=== PATIENT | female | born 1940 | race Caucasian/White ===

== ENCOUNTER 2024-04-06 15:12 | Outpatient (CLI) | payer BC, SELFPAY | END 2024-04-06 15:13 | disposition home or self-care (01) | PROVIDERS: Visit Provider Family Medicine | DX: E55.9 Vitamin D deficiency, unspecified (principal); I10 Essential (primary) hypertension; E78.5 Hyperlipidemia, unspecified; E11.8 Type 2 diabetes mellitus with unspecified complications; Z11.59 Encounter for screening for other viral diseases | CPT/HCPCS: 80053; 82043; 82306; 82570; 86803 ==

== ENCOUNTER 2024-05-07 12:37 | Outpatient (CLI) | payer MEDICARE, SELFPAY | END 2024-05-07 12:38 | disposition home or self-care (01) | PROVIDERS: PCP Family Medicine; Visit Provider Surgery | DX: I83.819 Varicose veins of unspecified lower extremity with pain (principal); I87.2 Venous insufficiency (chronic) (peripheral) | CPT/HCPCS: 93970 ==

== ENCOUNTER 2024-07-08 05:33 | Inpatient (IN) | payer MEDICARE, SELFPAY ==
[2024-07-08] VITALS (7 sets, daily range): BP systolic 119–182; BP diastolic 55–75; PULSE 62–70; RESP 16–18; TEMP 36.6; O2SAT 93–96; BMI 31.5; BMI 32.6
--- NOTE | 2024-07-08 05:57 | CRLHL7_ITS ---
For Patients: As a result of the Cures Act, medical imaging exams and procedure reports are released immediately into your electronic medical record. You may view this report before your referring provider. If you have questions, please contact your health care provider. Indication: Indication:injury, cellulitis Technique: Right foot 4th digit 3 views. Comparison: None. Findings/Impression: No acute fracture or dislocation Mild generalized soft tissue swelling of the 4th distal phalanx. Scattered degenerative arthrosis of the interphalangeal joint. Dictated by Ewa Garcia MD @ 07/08/2024 6:44:16 AM (Electronically Signed)
--- NOTE | 2024-07-08 06:02 | ED_ITS ---
HPI - General Adult General Chief complaint: Lower Extremity Swelling Stated complaint: R foot sore Time Seen by Provider: 07/08/24 05:46 Source: patient and family Mode of arrival: ambulatory Limitations: no limitations History of Present Illness HPI narrative: 83-year-old female with a notable prior history of diabetes and prior foot infections presents to the emergency department for evaluation of redness and throbbing in the right foot. She had a pedicure 6 days ago and had bleeding at the time of the appointment. It sounds like the account technician applied powder solution to stop the bleeding. Bleeding in injury were to the 4th toe, sounds like the lateral nail fold per her description. For the last 2 days patient has noticed increased redness and swelling and now has tenderness and throbbing. Has not tried any medications to help with the pain. Prior history of a similar infection that required removal of the great toenail on the same foot per her description. She does have some mild memory impairment and is not able to recall lot of the details. The family says that she also had an infection in her finger several years ago that required surgical drainage. She tells me that it was a cyst but they are confident that it was a bone infection. She is not on insulin but does have diabetes. She was on her feet a lot the last couple of days making cookies. No fever. No systemic symptoms of infection. She reports that she did recently complete antibiotics for a bladder infection, unrelated. Denies any other symptoms of illness. No repeat of the bleeding, no drainage. Past medical history notable for type 2 diabetes, hypertension, hyperlipidemia. Reports that her only home medications are amlodipine, metformin, rosuvastatin. Nonsmoker. ROS is notable for the skin and foot symptoms as described above, otherwise denies times 12 systems. Related Data Home Medications ?Medication ?Instructions ?Recorded ?Confirmed ascorbic acid (vitamin C) 500 mg 500 mg PO QDAY 04/06/24 05/02/24 tablet calcium complex plus PO DAILY 04/06/24 05/02/24 cholecalciferol (vitamin D3) 25 25 mcg PO QDAY 04/06/24 05/02/24 mcg (1,000 unit) capsule docusate sodium 100 mg capsule 200 mg PO BID 04/06/24 05/02/24 (Dulcolax Stool Softener (docusate)) qunol turmeric 1,500 mg PO DAILY 04/06/24 05/02/24 Previous Rx's ?Medication ?Instructions ?Recorded amlodipine 2.5 mg tablet 2.5 mg PO QDAY #90 tabs 04/06/24 metformin 500 mg tablet 500 mg PO BID #180 tabs 04/06/24 rosuvastatin 5 mg tablet 5 mg PO QHS #90 tabs 04/06/24 Myrbetriq 50 mg tablet,extended 50 mg PO QDAY #90 tabs 04/16/24 release (mirabegron) Allergies Allergy/AdvReac Type Severity Reaction Status Date / Time codeine Allergy Verified 07/08/24 05:39 Sulfa (Sulfonamide AdvReac swelling Verified 07/08/24 05:39 Antibiotics) hydrocodone-acetaminophen Allergy Uncoded 05/02/24 09:06 levaquin Allergy myalgias Uncoded 05/02/24 09:06 Propoxyphene n-apap Allergy Nausea and Uncoded 05/02/24 09:06 vomiting dermabond prineo AdvReac rash Uncoded 05/02/24 09:06 invokana AdvReac hives and Uncoded 05/02/24 09:06 intense itching Levofloxacin hemihydrate AdvReac myalgias Uncoded 05/02/24 09:06 opioid analgesics AdvReac Uncoded 05/02/24 09:06 oxycodone-acetaminophen AdvReac rash Uncoded 05/02/24 09:06 [facility] Medical History Psoriasis ?L40.9 - Psoriasis, unspecified (ICD-10) Spondylosis ?M47.9 - Spondylosis, unspecified (ICD-10) Labial cyst ?N90.7 - Vulvar cyst (ICD-10) Dense breasts ?R92.30 - Dense breasts, unspecified (ICD-10) Diabetic eye exam ?Z01.00 - Encounter for examination of eyes and vision without abnormal findings (ICD-10) ?E11.9 - Type 2 diabetes mellitus without complications (ICD-10) Hx of echocardiogram ?Z92.89 - Personal history of other medical treatment (ICD-10) History of angina ?Z86.79 - Personal history of other diseases of the circulatory system (ICD- 10) Hx of small bowel obstruction ?Z87.19 - Personal history of other diseases of the digestive system (ICD-10) Surgical History Status post right foot surgery ?Z98.890 - Other specified postprocedural states (ICD-10) History of arthroplasty of right knee ?Z96.651 - Presence of right artificial knee joint (ICD-10) H/O oophorectomy History of carpal tunnel surgery ?Z98.890 - Other specified postprocedural states (ICD-10) H/O vaginal surgery ?Z98.890 - Other specified postprocedural states (ICD-10) H/O discectomy ?Z98.890 - Other specified postprocedural states (ICD-10) H/O total hip arthroplasty ?Z96.649 - Presence of unspecified artificial hip joint (ICD-10) Hx of cataract surgery ?Z98.49 - Cataract extraction status, unspecified eye (ICD-10) History of cholecystectomy ?Z90.49 - Acquired absence of other specified parts of digestive tract (ICD- 10) History of colon surgery ?Z98.890 - Other specified postprocedural states (ICD-10) H/O cardiac catheterization ?Z98.890 - Other specified postprocedural states (ICD-10) History of hysterectomy ?Z90.710 - Acquired absence of both cervix and uterus (ICD-10) Hx of shoulder surgery ?Z98.890 - Other specified postprocedural states (ICD-10) Family History Father Coronary artery disease CHF (congestive heart failure) Diabetes High blood pressure Mother High blood pressure High cholesterol Vulvar cancer Thyroid cancer Maternal Grandfather Colon cancer Brother Sleep apnea Uncle Stomach cancer Social History Narrative: non-smoker, no alcohol use, lives with . 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 What is your current living situation?: I presently have a place to live Problems where you live: no known problems In the past 12 months, utilities in danger of being shut off: no In the past 12 mos, have been you worried that your food would run out before you had money to buy more?: never true In the past 12 mos, the food you bought just didn't last and you didn't have money to buy more?: never true How often does anyone, including family, friends and others, physically hurt you : never How often does anyone, including family, friends and others, insult or talk down to you: never How often does anyone, including family, friends and others, threaten you with harm: never How often does anyone, including family, friends and others, scream or curse at you: never Exam Const: Vital Signs, click to edit/add: Vital Signs - 24 hr 07/08/24 05:35 Temperature 97.8 F Pulse Rate [Right Pulse Oximeter] 70 Respiratory Rate 16 Blood Pressure [Ri ght Upper Arm] 182/75 H Pulse Oximetry 95 Oxygen Delivery Me thod Room Air Documenting provider has reviewed patient's vital signs: yes Common normals: no apparent distress and alert General appearance: cooperative and well kempt HENMT: Common normals: normocephalic Head and scalp: normocephalic Face and sinus: normal facial exam Mouth: oral and palatal mucosa normal Throat: posterior oropharynx normal Eye: Common normals: conjunctivae normal General eye: normal appearance of both eyes Conjunctiva: conjunctiva(e) normal Neck & C-Spine: General: normal visual inspection Resp: Common normals: normal respiratory effort, no use of accessory muscles and clear to auscultation bilaterally Effort & inspection: able to speak in complete sentences Auscultation: clear to auscultation bilaterally Cardio: Common normals: regular rate, regular rhythm, S1 normal heart sound, S2 normal heart sound and no murmurs Rate: regular rate Rhythm: regular rhythm Heart sounds: S1 normal and S2 normal GI: Common normals: Normal to inspection, nondistended, normoactive bowel sounds present, soft to palpation, non-tender, no hepatosplenomegaly and no masses Palpation: soft and no hepatosplenomegaly Back & Pelvis: Common normals: thoracic and lumbar spine normal to inspection Extremity: Common normals: normal capillary refill Other: 2+ dorsalis pedis pulses bilaterally. A ll the toes have normal capillary refill. The left foot and toes appear grossly normal. Slight bunion deformity to the 1st digit but otherwise no abnormalities. The right foot however has significant swelling and redness that centers around the 4th toe. No visible laceration is present. There is no purulent drainage. Point of maximum tenderness is the lateral nail fold of the 4th toe. The redness does extend onto the 5th and 3rd toes and somewhat down the distal forefoot. Area will be marked by the nurse. Neuro: Sensorium/orientation: alert Motor exam: no movement abnormalities noted Psych: Appearance: well kempt Attitude: engaged Activity/motor behavior: appropriate eye contact Thought content: normal thought content Insight: insight good Judgement: judgment good Skin: Narrative: Other than the redness of the distal foot, no other abnormalities appreciated. No other open sores. Course Course ED Course: 83-year-old female with cellulitis of the 4th toe of the right foot with prior history of what sounds like osteomyelitis in the hand but also significant infection of the foot in the past. She is high risk for osteomyelitis or worsening cellulitis. High-risk for outpatient failure as well. Will obtain basic typical labs. I fear that she may need inpatient hospitalization for this cellulitis and IV antibiotics. Will await lab findings to tell for sure. Reevaluation(s) Time of Reevaluation #1: 07:07 Reevaluation #1: Counseled patient on lab and x-ray findings. No obvious osteomyelitis on x-ray but still significant concern for high risk infection. Age, diabetes, vascular status and prior osteomyelitis of the hand. Recommend IV antibiotics and hospitalization. She is hesitant but her family is understanding of my rationale and ultimately, she accepts as well. Will start vancomycin and Zosyn here in the ED and hospitalist team has accepted the patient for admission and care of cellulitis. Vital Signs Vital signs: Initial Vital Signs Temperature 97.8 F 07/08/24 05:35 Temperature Source Temporal Artery Scan 07/08/24 05:35 Pulse Rate 70 07/08/24 05:35 Pulse Rhythm Regular 07/08/24 05:35 Pulse Strength 3+ Normal 07/08/24 05:35 Respiratory Rate 16 07/08/24 05:35 Blood Pressure 182/75 H 07/08/24 05:35 Blood Pressure Mean 110 H 07/08/24 05:35 Blood Pressure Position Sitting 07/08/24 05:35 Pulse Oximetry 95 07/08/24 05:35 Oxygen Delivery Method Room Air 07/08/24 05:35 Vital Signs Temperature 97.8 F 07/08/24 05:35 Pulse Rate 70 07/08/24 05:35 Respiratory Rate 16 07/08/24 05:35 Blood Pressure 182/75 H 07/08/24 05:35 Pulse Oximetry 95 07/08/24 05:35 Oxygen Delivery Method Room Air 07/08/24 05:35 Temperature 97.8 F 07/08/24 05:35 Pulse Rate 70 07/08/24 05:35 Respiratory Rate 16 07/08/24 05:35 Blood Pressure 182/75 H 07/08/24 05:35 Pulse Oximetry 95 07/08/24 05:35 Oxygen Delivery Method Room Air 07/08/24 05:35 Medications Administered Medications: Discontinued Medications Generic Name Dose Route Start Last Admin Trade Name Bry PRN Reason Stop Dose Admin Acetaminophen 1,000 mg 07/08/24 05:57 07/08/24 06:27 Acetaminophen 500 Mg Tablet PO 07/08/24 05:58 1,000 mg ONCE ONE Administration Medical Decision Making Lab Data Lab results reviewed: Yes I reviewed the patient's lab results Lab results narrative: Labs are pretty reassuring. There is a mild leukocytosis. Creatinine looks stable for patient, electrolytes are normal. C reactive protein reassuring. Labs: Lab Results 07/08/24 Range/Units 06:21 WBC 12.92 H (4.50-11.00) K/uL RBC 4.19 (4.00-5.20) m/uL Hgb 12.8 (12.0-16.0) gm/dL Hct 39.9 (33.0-51.0) % MCV 95 (80-100) fL MCH 31 (26-34) pg MCHC 32 (32-36) gm/dL RDW Coeff of Calli 13.0 (11.5-15.5) % Plt Count 257 (140-440) K/uL Neut % (Auto) 68.5 (42.0-72.0) % Lymph % (Auto) 16.3 L (20-44) % Lagrange % (Auto) 8.9 (0.0-11.0) % Eos % (Auto) 5.6 (0.0-7.0) % Baso % (Auto) 0.5 (0.0-3.0) % Neut # (Auto) 8.90 H (1.7-7.0) K/uL Lymph # (Auto) 2.10 (0.90-2.90) K/uL [place] # (Auto) 1.10 H (0.00-0.90) K/UL Eos # (Auto) 0.70 H (0.00-0.50) K/uL Baso # (Auto) 0.10 (0.00-0.30) K/uL Abs Immat Gran (auto) 0.00 (0.00-0.30) K/uL Imm/Tot Granulo (auto) 0.2 % Sodium 141 (135-149) mmol/L Potassium 4.8 (3.6-5.1) mmol/L Chloride 107 (96-114) mmol/L Carbon Dioxide 26 (20-32) mmol/L Anion Gap 8 (7-15) mEq/L BUN 20 (7-30) mg/dL Creatinine 0.7 (0.5-1.5) mg/dL Estimated Creat Clear 34.30 Estimated GFR 86 ml/min Glucose 191 H (60-115) mg/dL Calcium 9.6 (8.4-10.6) mg/dL C-Reactive Protein < 0.5 L (0.5-1.0) mg/dL Imaging Data Right 4th toe x-ray: Attestation: I have reviewed the pertinent imaging results. My impression: No obvious fracture, bone erosion. There are some osteoarthritic changes but no obvious suspicion for osteomyelitis Radiologist's impression: Findings/Impression: No acute fracture or dislocation Mild generalized soft tissue swelling of the 4th distal phalanx. Scattered degenerative arthrosis of the interphalangeal joint. Dictated by Ewa Garcia MD @ 07/08/2024 6:44:16 AM Discharge Plan Discharge Clinical Impression: Cellulitis of fourth toe of right foot Patient Disposition: Admitted As Observation
--- OUTSIDE RECORDS SUMMARY | 2024-07-08 06:05 | XMS_ITS | Encounter Summary ---
Author Organization [employer] [facility] Address [address] [place] [address], [address] [place] [address] Phone Care Team Providers Care Inspector Packer [employer] Name Role Phone Francisco Trevino Primary Care Provider [phone] Francisco Nava MD Primary Care Provider [phone] Encounter Details Date Type Department Care Team (Late st Contact Info) Description 12/10/2021 Orders Only [facility] [place] [address] [place] [address] Kelle Baltazar MA Unilateral primary osteoarthritis of right knee Social History Tobacco Use Types Packs/Day Years Used Date Smoking Tobacco: Former Smokeless Tobacco: Never Comments Unknown Sex and Gender Information Value Date Recorded Sex Assigned at Female 08/14/2021 10:34 PM 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 [place] [address] PCP - General Reception Interviewer 05/20/22 documented as of this encounter
--- OUTSIDE RECORDS SUMMARY | 2024-07-08 06:05 | XMS_ITS | Clinical Summary ---
Author Organization [facility] Address [address] [place] [address], [address] [place] [id number] Phone Care Team Providers Care Seafood Packer Name Role Phone Francisco Nava MD Primary Care Provider [phone] Allergies Active Allergy Reactions Criticality Noted Date Comments Codeine Nausea And Vomiting Low 03/01/2014 Hydrocodone-Acetaminoph en Nausea And Vomiting 01/07/2010 Plain Tylenol ok to take without problem Levofloxacin Other High 12/17/2010 Other reaction(s): Myalgias Myalgias Morphine And Codeine 10/21/2004 Other reaction(s): Other dry heeves and vomiting Other Rash Low 06/30/2022 Dermabond (Prineo), tegaderm Oxycodone Rash Low 06/30/2022 Sulfa Antibiotics Swelling 10/21/2004 Medications amLODIPine (Norvasc) 2.5 MG tablet Take 2.5 mg by mouth in the morning. 05/12/2021 Active ascorbic acid (Vitamin C) 500 MG tablet Take 500 mg by mouth. Active aspirin 81 MG EC tablet Take 81 mg by mouth in the morning. Active metFORMIN XR (Glucophage-XR) 500 MG 24 hr tablet Take 500 mg by mouth twice a day. 05/02/2021 Active rosuvastatin (Crestor) 5 MG tablet Take 5 mg by mouth. 04/26/2013 Active Invokana 100 MG Take 100 mg by mouth in the morning. 05/27/2022 Active canagliflozin (Invokana) 100 MG Take 100 mg by mouth in the morning. 05/26/2022 Active Myrbetriq 50 MG tablet sustained-releas e 24 hour Take 1 tablet by mouth in the morning. 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 03/05/2020 Type 2 diabetes mellitus 07/04/2017 Resolved Problems Problem Noted Date Diagnosed Date Resolved Date Hypertensive disorder 05/26/20212022 Rotator cuff arthropathy of left shoulder 05/26/2021 08/27/2022 Osteoarthritis 02/19/2020 08/27/2022 Shoulder pain 05/14/2019 08/27/2022 Inflammation of rotator cuff tendon 06/26/2013 08/27/2022 Immunizations Immunization Administration Dates Next Due Influenza, High Dose Seasona l, Preservative Free 04/19/2022,04/17/2021,04/03/2020,05/15,04/18/2018,04/30/2017,04/21/2016 Influenza, High-dose Seasona l, Quadrivalent, Preservative Free 05/04/2023,04/19/2022,04/17/2021,04/03 Influenza, seasonal, injectable 05/30/20 13,05/04/2012,04/22/2010,05/02,05/21/2008,06/06/2007,05/24/2006 ,07/15/2000 Pfizer SARS-CoV-2 Vaccination 04/19/2022, 022 Pneumococcal Conjugate PCV 13 05/13/2015 Pneumococcal Polysaccharide PPV23 05/13/2016 Pneumococcal, Unspecified 12/06/2022(Def erred: Patient decision),05/21/2008 RSV IGIV 05/10/2023,05/10/2023 Tdap 05/08/2018,05/21/2008 Zoster, Recombinant 02/01/2020,07/23/2019 Zoster, live 05/14/2009 Social History Tobacco Use Types Packs/Day Years Used Date Smoking Tobacco: Former Passive Smoke Exposure: Never Smokeless Tobacco: Never Tobacco Cessation:Counseling Given: No Alcohol Use Standard Drinks/Week Comments Never 0 (1 standard drink = 0.6 oz pur e alcohol) Comments Unknown Sex and Gender Information Value Date Recorded Sex Assigned at Female 08/14/2021 10:34 PM LOCOMOTIVE CRANE 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 Legal Sex Female 10:51 PM CDT Gender Identity Female 08/14/2021 10:34 PM LOCOMOTIVE CRANE OPERATOR Sexual Orientation Not on file Last Filed Vital Signs Vital Sign Reading Time Taken Comments Blood Pressure - - Pulse - - Temperature - - Respiratory Rate - - Oxygen Saturation - - Inhaled Oxygen Concentration - - Weight 78.5 kg (173 lb) 09/05/2023 4:10 PM LOCOMOTIVE CRANE OPERATOR Height 157.5 cm (5' 2) 09/05/2023 4:10 PM LOCOMOTIVE CRANE OPERATOR Body Mass Index 31.64 09/05/2023 4:10 PM LOCOMOTIVE CRANE OPERATOR Plan of Treatment Health Maintenance Due Date Last Done Comments Bone Density Scan 1941 Influenza Vaccine (#1) 2024 , 04/17/2021, 04/03/2020, Additional history exists Annual Imaging after Total K nee Replacement 01/31/2025 02/01/2024, 12/06/2022, 07/23/2022, Additional history exists Pneumococcal Vaccine: 65+ Years Completed 05/13/2016, 05/13/2015, 05/21/2008 Procedures Procedure Name Priority Date/Time Associated Diagnosis Comments XR HIP 2 OR 3 VW RIGHT Routine 02/01/2024 6:42 PM CDT Fall <Initial> from Last 3 Months or Most Recently Relevant to Health Maintenance Results * XR hip right 2 or 3 views (02/01/2024 6:42 PM CDT) Anatomical Region Laterality Modality Lower Extremities, Hip Right Digital R adiography Narrative 02/02/2024 11:02 AM CDT AP, lateral views of the R hip demonstrate well aligned total hip arthroplasty without appreciated signs of infection, loosening, periprosthetic fracture, or signs of hardware complication. Maintenance of concentric reduction. Norma GARDNER IMG XR PROCEDURES Final Result from Last 3 Months or Most Recently Relevant to Health Maintenance Insurance [employer] [place] [id number] Care Teams Seafood Packer Relationship Specialty Start Date End Date Francisco Nava MD [address] [facility] [address] [place] [address] PCP - General Cardroom Attendant 05/20/22
--- OUTSIDE RECORDS SUMMARY | 2024-07-08 06:05 | XMS_ITS | Clinical Summary ---
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 Role Phone Shahzad Temple Primary Care Provider Allergies Active Allergy Reactions Criticality Noted Date Comments Codeine 12/07/2010 Hydrocodone-Acetaminoph en Nausea And Vomiting 01/07/2010 vicodin Plain Tylenol ok to take without problem Levofloxacin Myalgia,Nausea And Vomiting,*Unknown,Ot her - Describe In Comment Field High 12/17/2010 Other reaction(s): Myalgias Myalgias Myalgias Propoxyphene-Acetaminop hen Nausea And Vomiting 11/10/2005 Sulfa (Sulfonamide Antibiotics) 12/07/2010 Medications Medication Sig Dispensed Refills Start Date End Date Status simvastatin (ZOCOR) 10 mg tablet Take 1 tablet by mouth at bedtime. 0 12/07/2010 Active amLODIPine (NORVASC) 2.5 mg tablet Take 1 Tablet by mouth once daily. 01/03/2024 Active metFORMIN (GLUCOPHAGE) 500 mg tablet Take 1 Tablet by mouth two times daily. Active rosuvastatin (CRESTOR) 5 mg tablet Take 1 Tablet by mouth at bedtime. 06/07/2023 Active pseudoephedrine (SUDAFED 12 HOUR) 120 mg TbER Take 1 tablet by mouth every 12 hours if needed for Nasal Congestion. 0 12/07/2010 06/18/2024 Discontinued( *Patient states no longer taking) dextromethorphan polistirex 30 mg in 5 ml (DELSYM) 30 mg/5 mL liquid Take 5 mL by mouth every 12 hours if needed for Cough. 0 12/07/2010 06/18/2024 Discontinued( *Patient states no longer taking) predniSONE (DELTASONE) 20 mg tablet Take by mouth once daily with a meal. Take 3 daily x 3 days; then 2 daily x 3 days; then 1 daily x 3 days. 18 tablet 0 12/07/2010 06/18/2024 Discontinued( *Patient states no longer taking) cephalexin 500 mg capsuleIndicatio ns:Acute UTI Take 1 Capsule (500 mg) by mouth three times daily for 10 days. 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 30 Capsule 06/20/2024 06/30/2024 fluconazole (Diflucan) 150 mg tabletIndication s:Vaginal irritation Take 1 Tablet (150 mg) by mouth one time for 1 dose. Can repeat the dose in 72 hours if still with symptoms 2 Tablet 06/21/2024 06/21/2024 Active Problems Problem Noted Date Diagnosed Date Hyperlipidemia 12/07/2010 Encounters Date Type Department Care Team Description 06/28/2024 10:00 AM [employer] Nurse/Clinic Staff Only [facility] [place] [address] [place] [address] Removal (TOV ) 06/28/2024 Travel 06/21/2024 8:40 AM [employer] Office Visit [facility] [place] [address] [place] [address] Purnima Davis PA Follow Up (Discuss catheter) 06/21/2024 Travel 06/18/2024 1:20 PM [employer] Office Visit [facility] [place] [address] [place] [address] Purnima Davis PA Follow Up (IC issues) 06/18/2024 Travel 06/18/2024 Telephone [facility] [place] [address] [place] [address] Purnima Davis PA 06/15/2024 Telephone [facility] [place] [address] [place] [address] [address] Vinicio Monge MD Questions (Catheter questions and Concerns) 06/15/2024 Nurse Triage [facility] [email or web address] [id number] [place] [address] Shahzad Temple PA Error-please disregard (A user error has taken place: encounter opened in error, closed for administrative reasons./) 06/14/2024 11:00 AM [employer] Nurse/Clinic Staff Only [facility] [place] [address] [place] [address] [address] Nurse/Clinic Staff Only (UA/UC and PVR) 06/14/2024 Travel 06/14/2024 Telephone [facility] [place] [address] [address] Vinicio Monge MD Questions 06/05/2024 Telephone [place] [address] [place] [address] Vinicio Monge MD Appointment (Request) 05/31/2024 Orders Only [address] [address] Vinicio Monge MD <No scans attached> 05/21/2024 Telephone [facility] [place] [address] [address] Vinicio Monge MD Medication List Update 05/14/2024 Telephone [facility] [[email or web address] [id number] [place] [address] Vinicio Monge MD BOTOX 05/11/2024 12:45 PM CDT Office Visit [facility] [place] [address] [place] [address] [address] Vinicio Monge MD Consult (Incontinence) 05/11/2024 Travel 05/07/2024 1:00 PM CDT Orders Only [facility] [address] [place] [address] 2 scans: (2-Ord) US VENOUS INSUFFICIENCY LOWER EXTREMITY BILATERAL ([id number]) from Last 3 Months Social History Tobacco Use Types Packs/Day Years Used Date Smoking Tobacco: Never Smokeless Tobacco: Never Alcohol Use Standard Drinks/Week Comments Not Asked 0 (1 standard drink = 0.6 oz pur e alcohol) Sex and Gender Information Value Date Recorded Sex Assigned at Not on file Gender Identity Not on file Sexual Orientation Not on file Obstetrics History Last Filed Vital Signs Vital Sign Reading Time Taken Comments Blood Pressure 137/72 06/18/2024 2:01 PM [employer] Pulse 69 06/21/2024 8:57 AM [employer] Temperature 37.3 C (99.1 F) 12/07/2010 12:01 PM CDT Respiratory Rate 16 06/18/2024 2:01 PM [employer] Oxygen Saturation 97% 06/21/2024 8:57 AM [employer] Inhaled Oxygen Concentration - - Weight 80.8 kg (178 lb 1.6 oz) 05/11/2024 1:28 P M CDT Height - - Body Mass Index - - Plan of Treatment Upcoming Encounters Date Type Department Care Team (Late st Contact Info) Description 07/10/2024 11:00 AM [employer] Nurse/Clinic Staff Only [address] [address] Health Maintenance Due Date Last Done Comments Tdap 1952 Depression screening for age 12+ 1953 BMI (ht and wt on same day) for age 18+ 11/08/1959 Tetanus booster 1961 Zoster (shingles) series for age 50+ (1 of 2) 11/08/1991 DEXA/DXA scan for age 65+ 2006 Medicare Wellness for age 65+ 2006 Pneumococcal series for age 65+ (1 of 1 - PCV) 2006 RSV vaccine for adults or (1 - 1-dose 75+ series) 2016 Influenza for age 65+ 04/08/2024 COVID-19 vaccine series Completed 05/01/20, 04/19/2022, 04/19/2022, Additional history exists Procedures Procedure Name Priority Date/Time Associated Diagnosis Comments URINE CULTURE Routine 06/18/2024 2:20 PM [employer] Urinary symptom or sign URINALYSIS MICROSCOPIC Routine 11:30 AM [employer] Urinary symptom or sign URINE CULTURE Routine 06/14/2024 11:30 AM [employer] Urinary symptom or sign UA W/ SEDIMENT EXAM REFLEXED PER CRITERIA Routine 06/14/2024 11:30 AM [employer] Urinary symptom or sign GA RAEGAN POST-VOIDING RESIDUAL URINE&/BLADDER CAP Routine 06/14/2024 12:00 AM [employer] Urinary symptom or sign US VENOUS INSUFFICIENCY LOWER EXTREMITY BILATERAL Routine 05/07/2024 3:59 PM CDT Venous insufficiency Varicose veins with pain Leg pain Bilateral leg pain from Last 3 Months Results * (ABNORMAL) URINE CULTURE (06/18/2024 2:20 PM [employer]) Only the most recent of2 resultswithin the time period is included. CULTURE RESULT(A) 06/20/2024 7:08 AM [employer] [facility] CULTURE >100,000 CFU/mL Escherichia coli 06/20/2024 7:08 AM [employer] [facility] Urine URINE SPECIMEN / Unknown Non-Blood / Unknown 06/18/2024 2:20 PM [employer] 06/18/2024 2:51 PM [employer] Narrative Organism Antibiotic Method Susceptibility Escherichia coli TRIMETHOPRIM/SULF <=1/19: S Escherichia coli AMPICILLIN <=2: S Escherichia coli CEFAZOLIN 2: S Escherichia coli CEFAZOLIN-UC 2: S Comment:Cefazolin-UC interpretations are for therapy of uncomplicated UTIs due to E.coli, K.pneumoniae, or P.mirablis. Cefazolin breakpoint is used as a surrogate to predict results for the oral agents - cefdinir, cefuroxime, and cephalexin, when used for therapy of uncomplicated UTIs due to E coli, K, pneumoniae, and P. mirabilis. The FDA recommends cefadroxil susceptibility can be deduced from cefazolin. Escherichia coli GENTAMICIN <=1: S Escherichia coli CEFTRIAXONE <=0.25: S Escherichia coli CEFTAZIDIME <=0.5: S Escherichia coli LEVOFLOXACIN <=0.12: S Escherichia coli CIPROFLOXACIN <=0.06: S Escherichia coli PIPERACILLIN/TAZO <=4: S Escherichia coli AMPICILLIN/SULBACTAM <=2: S Escherichia coli CEFEPIME <=0.12: S Escherichia coli MEROPENEM <=0.25: S Escherichia coli NITROFURANTOIN <=16: S Purnima GARDNER MICROBIOLOGY Performing Organization Address City/[facility]/ZIP Co de Phone Number [facility] [address] [place] [address], [place] * (ABNORMAL) URINALYSIS MICROSCOPIC (06/14/2024 11:30 AM [employer]) RBC 3-5(A) 0-2, None Seen /HPF 06/14/2024 12:24 PM [employer] [facility] WBC None Seen 0-2, 3-5, None Seen /HPF 06/14/2024 12:24 PM [employer] [facility] BACTERIA Rare None Seen, Rare, Few Bacteria/H PF 06/14/2024 12:24 PM [employer] [facility] EPITHELIAL CELLS Few None Seen, Few Epi/HPF 06/14/2024 12:24 PM [employer] [facility] Urine URINE SPECIMEN / Unknown Non-Blood / Unknown 06/14/2024 11:30 AM [employer] 06/14/2024 12:09 PM [employer] Purnima GARDNER URINE Performing Organization Address City/[facility]/ZIP Co de Phone Number [facility] [address] [place] [address], [place] [phone] * (ABNORMAL) UA W/ SEDIMENT EXAM REFLEXED PER CRITERIA (06/14/2024 11:30 AM [employer]) COLOR Yellow Yellow Color 06/14/2024 12:24 PM [employer] [facility] CLARITY Clear Clear Clarity 06/14/2024 12:24 PM [employer] [facility] SPECIFIC GRAVITY,URINE 1.010 1.010, 1.015, 1.020, 1.025 06/14/2024 12:24 PM [employer] [facility] PH,URINE 6.0 6.0, 7.0, 8.0, 5.5, 6.5, 7.5, 8.5 06/14/2024 12:24 PM [employer] [facility] UROBILINOGEN,Q UALITATIVE Normal Normal EU/dl 06/14/2024 12:24 PM [employer] [facility] PROTEIN, URINE Negative Negative mg/dL 06/14/2024 12:24 PM [employer] [facility] GLUCOSE, URINE Negative Negative mg/dL 06/14/2024 12:24 PM [employer] [facility] KETONES,URINE Negative Negative mg/dL 06/14/2024 12:24 PM [employer] [facility] BILIRUBIN,URIN E Negative Negative 06/14/2024 12:24 PM [employer] [facility] OCCULT BLOOD,URINE Small(A) Negative 06/14/2024 12:24 PM [employer] [facility] NITRITE Negative Negative 06/14/2024 12:24 PM [employer] [facility] LEUKOCYTE ESTERASE Negative Negative 06/14/2024 12:24 PM [employer] [facility] Urine URINE SPECIMEN / Unknown Non-Blood / Unknown 06/14/2024 11:30 AM [employer] 06/14/2024 12:09 PM [employer] Purnima GARDNER URINE [facility] [place] [address], * GA RAEGAN POST-VOIDING RESIDUAL URINE&/BLADDER CAP (06/14/2024 12:00 AM [employer]) Purnima GARDNER PB - URINARY SYSTEM SERVICES * US VENOUS INSUFFICIENCY LOWER EXTREMITY BILATERAL (05/07/2024 3:59 PM CDT) Anatomical Region Laterality Modality LEGS Ultrasound 05/07/2024 1:00 PM CDT Narrative 05/07/2024 4:57 PM CDT VASCULAR ULTRASOUND REPORT JOSE LEBLANC : 1940 Study Date: 05/07/2024 1:00:26 PM Age: 83 years Tech: PMK Gender: F Referring MD: NAHOMY EDEN Site: [facility] Study performed: Duplex US venous insufficiency, (bilateral). Indication for study: varicose veins Study Quality: Good TECHNIQUE: Lower/upper extremity veins were examined with duplex ultrasound, color-flow and spectral Doppler per exam protocol. Vein compressibility by transducer pressure was used to evaluate presence/absence of DVT/SVT. Venous flow and competence was evaluated by flow augmentation maneuvers per exam protocol. Insufficiency studies were performed with the patient in upright position, with vein diameters measured in mm, and reflux. IMPRESSION: 1. No evidence of deep vein thrombosis in the right and left lower extremity. 2. No evidence of deep venous insufficiency in the right and left lower extremity. 3. Superficial venous insufficiency was noted in the right sapheno-femoral junction and greater saphenous vein at proximal thigh and mid thigh. 4. The right greater saphenous vein and small saphenous vein are patent and compressible. 5. Incompetent varicose and/or radiation control health physicist veins as listed below. 6. The left greater saphenous vein and small saphenous are patent and compressible with no evidence for significant venous insufficiency. COMPARISON: No prior study available for comparison. FINDINGS: Left popliteal cyst 3.4x1.2x1.8cm. Right Lower Extremity: No deep venous insufficiency. No evidence of DVT. Varicose vein at knee, 2.9 mm diameter, 1.5 sec reflux. Varicose vein at prox calf, 2.6 mm diameter, 4.1 sec reflux. Left Lower Extremity: No deep venous insufficiency. No evidence of DVT. MEASUREMENTS: + +--------+----+--------+------+ RIGHT Compress SVT Diameter Reflux (mm) (secs) + +--------+----+--------+------+ SFJ yes None 7.1 1.5 + +--------+----+--------+------+ GSV THIGH PRX yes None 4.6 2.5 + +--------+----+--------+------+ GSV THIGH MID yes None 2.2 0.6 + +--------+----+--------+------+ GSV THIGH DST yes None 2.1 0.0 + +--------+----+--------+------+ GSV KNEE yes None 2.9 0.0 + +--------+----+--------+------+ GSV CALF UPPER yes None 2.5 0.0 + +--------+----+--------+------+ GSV CALF MID yes None 1.0 0.0 + +--------+----+--------+------+ GSV CALF LOW yes None 2.2 0.0 + +--------+----+--------+------+ SSV KNEE/SPJ yes None 1.6 0.0 + +--------+----+--------+------+ SSV CALF PRX yes None 2.0 0.0 + +--------+----+--------+------+ SSV CALF MID yes None 1.1 0.0 + +--------+----+--------+------+ SSV CALF DST yes None 2.1 0.0 + +--------+----+--------+------+ + +--------+----+ +------+ LEFT Compress SVT Diameter (mm) Reflux (secs) + +--------+----+ +------+ SFJ yes None 5.9 0.0 + +--------+----+ +------+ GSV THIGH PRX yes None 2.9 0.0 + +--------+----+ +------+ GSV THIGH MID yes None 1.7 0.0 + +--------+----+ +------+ GSV THIGH DST yes None 2.1 0.0 + +--------+----+ +------+ GSV KNEE yes None 1.9 0.0 + +--------+----+ +------+ GSV CALF UPPER yes None 1.9 0.0 + +--------+----+ +------+ GSV CALF MID yes None 2.2 0.0 + +--------+----+ +------+ GSV CALF LOW yes None 2.5 0.0 + +--------+----+ +------+ SSV KNEE/SPJ yes None 2.4 0.0 + +--------+----+ +------+ SSV CALF PRX yes None 1.7 0.0 + +--------+----+ +------+ SSV CALF MID yes None 2.5 0.0 + +--------+----+ +------+ SSV CALF DST yes None 1.7 0.0 + +--------+----+ +------+ can't evaluate Varicose Veins + + + + RIGHT Location Diameter (mm) Reflux (secs) + + + + knee 2.9 1.5 + + + + prox calf 2.6 4.1 + + + + DEEP SYSTEM +----+--------+-----+--------+----+ RIGHT RIGHT LEFT LEFT Compress DVT Compress DVT +----+--------+-----+--------+----+ CFV yes None yes None +----+--------+-----+--------+----+ PFV yes None yes None +----+--------+-----+--------+----+ FV yes None yes None +----+--------+-----+--------+----+ POPV yes None yes None +----+--------+-----+--------+----+ can't evaluate Francisco Oliva MD. Electronically signed on 05/07/2024 4:57:05 PM This study was performed and interpreted by a service accredited by the Intersocietal Accreditation Commission (IAC/Vascular), [email or web address]/vascular Report generated by [employer]. Final Procedure Note Francisco Oliva MD - 05/07/2024 VASCULAR ULTRASOUND REPORT JOSE LEBLANC : 1940 Study Date: 05/07/2024 1:00:26 PM Age: 83 years Tech: PMK Gender: F Referring MD: NAHOMY EDEN Site: [facility] Study performed: Duplex US venous insufficiency, (bilateral). Indication for study: varicose veins Study Quality: Good TECHNIQUE: Lower/upper extremity veins were examined with duplex ultrasound,color-flow and spectral Doppler per exam protocol. Vein compressibility bytransducer pressure was used to evaluate presence/absence of DVT/SVT.Venous flow and competence was evaluated by flow augmentation maneuversper exam protocol. Insufficiency studies were performed with the patientin upright position, with vein diameters measured in mm, and reflux. IMPRESSION: 1. No evidence of deep vein thrombosis in the right and left lowerextremity. 2. No evidence of deep venous insufficiency in the right and left lowerextremity. 3. Superficial venous insufficiency was noted in the rightsapheno-femoral junction and greater saphenous vein at proximal thigh andmid thigh. 4. The right greater saphenous vein and small saphenous vein are patentand compressible. 5. Incompetent varicose and/or radiation control health physicist veins as listed below. 6. The left greater saphenous vein and small saphenous are patent andcompressible with no evidence for significant venous insufficiency. COMPARISON: No prior study available for comparison. FINDINGS: Left popliteal cyst 3.4x1.2x1.8cm. Right Lower Extremity: No deep venous insufficiency. No evidence of DVT. Varicose vein at knee,2.9 mm diameter, 1.5 sec reflux. Varicose vein at prox calf, 2.6 mmdiameter, 4.1 sec reflux. Left Lower Extremity: No deep venous insufficiency. No evidence of DVT. MEASUREMENTS: + +--------+----+--------+------+ RIGHT Compress SVT Diameter Reflux (mm) (secs) + +--------+----+--------+------+ SFJ yes None 7.1 1.5 + +--------+----+--------+------+ GSV THIGH PRX yes None 4.6 2.5 + +--------+----+--------+------+ GSV THIGH MID yes None 2.2 0.6 + +--------+----+--------+------+ GSV THIGH DST yes None 2.1 0.0 + +--------+----+--------+------+ GSV KNEE yes None 2.9 0.0 + +--------+----+--------+------+ GSV CALF UPPER yes None 2.5 0.0 + +--------+----+--------+------+ GSV CALF MID yes None 1.0 0.0 + +--------+----+--------+------+ GSV CALF LOW yes None 2.2 0.0 + +--------+----+--------+------+ SSV KNEE/SPJ yes None 1.6 0.0 + +--------+----+--------+------+ SSV CALF PRX yes None 2.0 0.0 + +--------+----+--------+------+ SSV CALF MID yes None 1.1 0.0 + +--------+----+--------+------+ SSV CALF DST yes None 2.1 0.0 + +--------+----+--------+------+ + +--------+----+ +------+ LEFT Compress SVT Diameter (mm) Reflux (secs) + +--------+----+ +------+ SFJ yes None 5.9 0.0 + +--------+----+ +------+ GSV THIGH PRX yes None 2.9 0.0 + +--------+----+ +------+ GSV THIGH MID yes None 1.7 0.0 + +--------+----+ +------+ GSV THIGH DST yes None 2.1 0.0 + +--------+----+ +------+ GSV KNEE yes None 1.9 0.0 + +--------+----+ +------+ GSV CALF UPPER yes None 1.9 0.0 + +--------+----+ +------+ GSV CALF MID yes None 2.2 0.0 + +--------+----+ +------+ GSV CALF LOW yes None 2.5 0.0 + +--------+----+ +------+ SSV KNEE/SPJ yes None 2.4 0.0 + +--------+----+ +------+ SSV CALF PRX yes None 1.7 0.0 + +--------+----+ +------+ SSV CALF MID yes None 2.5 0.0 + +--------+----+ +------+ SSV CALF DST yes None 1.7 0.0 + +--------+----+ +------+ can't evaluate Varicose Veins + + + + RIGHT Location Diameter (mm) Reflux (secs) + + + + knee 2.9 1.5 + + + + prox calf 2.6 4.1 + + + + DEEP SYSTEM +----+--------+-----+--------+----+ RIGHT RIGHT LEFT LEFT Compress DVT Compress DVT +----+--------+-----+--------+----+ CFV yes None yes None +----+--------+-----+--------+----+ PFV yes None yes None +----+--------+-----+--------+----+ FV yes None yes None +----+--------+-----+--------+----+ POPV yes None yes None +----+--------+-----+--------+----+ can't evaluate Francisco Oliva MD. Electronically signed on 05/07/2024 4:57:05 PM This study was performed and interpreted by a service accredited by theIntersocietal Accreditation Commission (IAC/Vascular),[email or web address]/vascular Report generated by [employer]. Final Nahomy Eden MD from Last 3 Months Care Teams Wood Carving Lathe Operator Relationship Specialty Start [place] [address] [place], [place] [id number] PCP - General Family Practice 12/07/10
--- OUTSIDE RECORDS SUMMARY | 2024-07-08 06:05 | XMS_ITS | Continuity of Care Document ---
Author Organization [facility] , [facility] Address [address] [facility] [address] [place] [address] Care Team Providers Care Industrial Controller Name Role Phone JOHN MATHUR Primary Care Provider Assessment Encounter Date Assessment Date Assessment LastModified by Organization Details LastModified Time 05/31/2024 05/31/2024 83-year-old female presents for bladder Botox [email or web address] Not available 05/31/2024 16:29:10 Plan of Treatment Reminders Order Date Submit Date Provider Last Modified By Organization Details Last Modified Time Details Appointments None recorded. Lab urinalysis, dipstick 2023 024 ALEJANDRO [facility], [address], [address], [place], [address], 10:37:40 urinalysis, microscopic [email or web address] [facility], [address], [address], [place], [address], 10:33:49 Referral None recorded. Procedures None recorded. Surgeries None recorded. Imaging None recorded. Medication Orders None recorded. Patient TargetsNo targets recorded. Patient Instructions Encounter Date Encounter Id Patient Instructions Last Modified By Organization Details Last Modified Time 05/31/2024 [id number] 83-year-old female presents for bladder Botox. Botox performed without complication. [email or web address] Not available 05/31/2024 16:29:28 Reason for Referral None Reported. Problems Name Problem SNOMED Code Status Onset Date Resolution Date Notes Provider Name and Address Organization Details Recorded Time Overactive urinary bladder 481908973 Active 024 NICOLAS RAMAN MD [address] [facility], [place], [address], [facility] 4 15:30:10 Recurrent urinary tract infection 826408284 Active 024 NICOLAS RAMAN MD [address] [facility],[address], [place], [address], [facility] 4 08:57:56 Urinary tract infectious disease 31602493 Active 024 NICOLAS RAMAN MD [address] [place] [address],[address], [place], [address], [facility] 4 08:58:03 Problem Notes None recorded. Procedures Surgical History Date Name Laterality Status Provider Name and Address Organization Details Recorded Time 4 Cystoscopy with Botox Injections completed NICOLAS RAMAN MD [address] [place] [address],[address], [place], [address], [facility] 05/31/2024 16:29:04 4 Urine Culture completed Marybeth Rodriguez [facility] 05/16/2024 17:20:25 Urinalysis completed Lilly Shah [facility] 05/17/2024 12:33:20 Imaging Results None recorded. Procedure Notes None recorded. Medical Equipment None Reported. Allergies Allergen ID Allergen Name Allergen Category Reaction Reaction Severity Criticality Documentation Date Start Date Code Code System Note Provider Name and Address Organization Details Recorded Time [id number] levofloxa aaron medicatio n Not available Not available Not available 05/31/2024 63421 RxNorm Iliana Nevills [facility] 4 10:21:17 345811 codeine medicatio n Not available Not available Not available 05/31/2024 2670 RxNorm Iliana Nevills [facility], [facility] 4 10:21:25 727935 acetamino phen / hydrocodo ne medicatio n Not available Not available Not available 05/31/2024 66285 2 RxNorm Iliana Nevills [facility], [facility] 4 10:21:49 857463 Levaquin medicatio n Not available Not available Not available 05/31/2024 31266 2 RxNorm Iliana Nath [facility] 4 10:22:28 423960 propoxyph clara medicatio n Not available Not available Not available 05/31/2024 8785 RxNorm Iliana Nath [facility] 10:23:03 124174 Substance with sulfonami de structure and antibacte rial mechanism of action (substanc e) medicatio n Not available Not available Not available 05/31/2024 38337 8003 SNOMED Iliana Pham [facility] 4 10:23:10 Medications Name Sig Start Date Stop Date Status Note LastModified by Organization Details LastModified Time metformin 500 mg tablet TAKE 1 TABLET BY MOUTH TWICE DAILY active Not Available Not Available No t Available fluconazole 150 mg tablet TAKE 1 TABLET BY MOUTH 1 TIME active Not Available Not Available No t Available amlodipine 2.5 mg tablet TAKE 1 TABLET BY MOUTH EVERY DAY active Not Available Not Available No t Available cephalexin 500 mg capsule TAKE 1 CAPSULE BY MOUTH EVERY 12 HOURS FOR 5 DAYS active Not Available Not Available No t Available Botox 100 unit injection Take 100 units by injection route. 2023 active Not Available Not Available Not Avai lable rosuvastatin 5 mg tablet TAKE 1 TABLET BY MOUTH EVERY DAY AT BEDTIME active Not Available Not Available N ot Available nitrofurantoi n monohydrate/m acrocrystals 100 mg capsule Take 1 capsule twice a day by oral route as directed for 3 days. active Not Available Not Available No t Available Myrbetriq 50 mg tablet,extend ed release TAKE 1 TABLET BY MOUTH EVERY DAY active Not Available Not Available No t Available Vitals Date Recorded Body height Body mass index (BMI) Body weight Provider Name and Address Organization Details Last Updated DateTime 05/31/2024 157.48 cm 32.4 kg/m2 29641.85 g Iliana Pham [facility] 05/31/2024 10:25:02 Social History Question Answer Notes LastModified by Organizat ion Details LastModified Time Tobacco Smoking Status Former Smoker Iliana person [facility] 05/31/2024 10:26:14 What Is Your Level Of Alcohol Consumption? None Information not available 05/31/2024 What Is Your Level Of Caffeine Consumption? Moderate Information not available 05/31/2024 When Did You Quit Smoking? 16+yearssince lastcigarette Information not available 05/31/2024 What Was The Date Of Your Most Recent Tobacco Screening? 05/31/2024 Information not available 05/31/2024 How Much Tobacco Do You Smoke? 1 PPW Information not available 05/31/2024 Do You Use Any Illicit Or Recreational Drugs? No Information not available 05/31/2024 Has Tobacco Cessation Counseling Been Provided? No Information not available 05/31/2024 Do You Or Have You Ever Used Any Other Forms Of Tobacco Or Nicotine? No Information not available 05/31/2024 Sex: Unknown Functional Status None recorded. Mental Status None recorded. Family History Nothing Reported. Medical History Condition Response Other N High Blood Pressure Y Kidney Stones N Lung Disease N Depression N GERD/Acid Reflux N Diabetes Y Sexually Transmitted Infection N Bleeding Disorder N Cancer N High Cholesterol Y Heart Disease N Gynecological HistoryNo gynecological history recorded. Obstetrics History GPAL:G 0 P 0 0 0 0 Immunizations Vaccine Type Date Status Provider Name and Address Organization Details Recorded Time zoster recombinant 10/03/2019 completed Iliana Nath [facility] 05/31/2024 10:17:44 zoster recombinant 07/23/2019 completed Iliana Nath [facility] 05/31/2024 10:17:45 SARS-COV-2 (COVID-19) vaccine, UNSPECIFIED 10/31/2020 completed Iliana Nath [facility] 05/31/2024 10:17:45 SARS-COV-2 (COVID-19) vaccine, UNSPECIFIED 11/21/2020 completed Iliana Nath [facility] 05/31/2024 10:17:45 SARS-COV-2 (COVID-19) vaccine, UNSPECIFIED 12/21/2021 completed Iliana Nath [facility] 05/31/2024 10:17:45 SARS-COV-2 (COVID-19) vaccine, UNSPECIFIED 04/19/2022 completed Iliana Nevills null, [facility] 05/31/2024 10:17:45 SARS-COV-2 (COVID-19) vaccine, UNSPECIFIED 05/22/2021 completed Iliana Nevills null, [facility] 05/31/2024 10:17:45 Respiratory syncytial virus (RSV), unspecified 05/10/2023 completed [facility], [facility] 05/31/2024 10:17:45 COVID-19, mRNA, LNP-S, PF, shadi-sucrose, 30 mcg/0.3 mL 04/19/2022 completed Iliana Nevills null, [facility] 05/31/2024 10:17:45 COVID-19, mRNA, LNP-S, PF, hsadi-sucrose, 30 mcg/0.3 mL 05/01/2024 [facility] 10:17:45 COVID-19, mRNA, LNP-S, PF, shadi-sucrose, 30 mcg/0.3 mL 05/04/2023 completed Iliana Nevills null, [facility] 05/31/2024 10:17:45 pneumococcal polysaccharide PPV23 05/13/2016 completed Il[facility] Nevills null, [facility] 05/31/2024 10:17:45 Tdap 05/08/2018 completed Iliana Nevills null, [facility] 05/31/2024 10:17:45 Tdap 05/21/2008 completed Iliana Nevills null, [facility] 05/31/2024 10:17:45 Pneumococcal conjugate PCV 13 05/13/2015 completed Iliana Nevills null, [facility] 05/31/2024 10:17:45 pneumococcal, unspecified formulation 05/21/2008 completed Iliana Nevills null, [facility] 05/31/2024 10:17:45 zoster live 05/14/2009 completed Iliana Nevills null, [facility] 05/31/2024 10:17:45 Influenza, high-dose, trivalent, PF 05/01/2024 completed Iliana Nevills null, [facility] 05/31/2024 10:17:45 Past Encounters Encounter ID Performer Location Encounter Start Date Encounter Closed Date Diagnosis/Indication Diagnosis SNOMED-CT Code Diagnosis ICD10 Code [id number] Lilly Shah [facility] [address] [place] [address],[address] [place] [address] 05/17/2024 12:23:46 05/17/2024 12:34:14 Overactive urinary bladder 885565415 N32.81 [id number] MD [facility] [address] [place] [address],[address] [place] [address] 05/31/2024 10:07:51 06/01/2024 11:16:44 Urinary tract infectious disease 01519288 N39.0 Overactive urinary bladder 973910152 N32.81 Health Concerns Section Related Observation LastModified by Organization Detai ls LastModified Time None Recorded Concern Status LastModified by Organization Details LastModified Time None Recorded Payers Encounter Date Sequence Insurance Name Policy Number Policy West Covered Member ID West Member ID Guarantor Name 05/31/2024 1 [place] MEDICARE COST [id number] Emma Yang [id number] Emma Yang Notes Date Note Type Note Provider Name and Address Organization Details Recorded Time 05/31/2024 text/html 83-year-old female with overactive bladder presents for bladder Botox NICOLAS RAMAN MD [address] [facility],[address], [place], [address], [facility] 05/31/2024 16:31:17 OBGyn Episode No OBEpisode recorded.
--- OUTSIDE RECORDS SUMMARY | 2024-07-08 06:05 | XMS_ITS | Encounter Summary ---
Author Organization [facility] Address [address] [place] [address], [address] [place] [address] Phone Care Team Providers Care Records Analyst Name Role Phone Francisco Nava MD Primary Care Provider [phone] Encounter Details Date Type Department Care Team (Late st Contact Info) Description 06/02/2022 Abstract [facility] [place] [address] [facility] [address] [place] [address] Crescencio Dockery MD [address] [place] [address] Social History Tobacco Use Types Packs/Day Years Used Date Smoking Tobacco: Former Smokeless Tobacco: Never Alcohol Use Standard Drinks/Week Comments Never 0 (1 standard drink = 0.6 oz pur e alcohol) Comments Unknown Sex and Gender Information Value Date Recorded Sex Assigned at Female 08/14/2021 10:34 PM 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
--- OUTSIDE RECORDS SUMMARY | 2024-07-08 06:05 | XMS_ITS | Data Portability ---
Author Organization [place] - [facility] Address [address] [place] [address] Care Team Providers Care Software Programmer Name Role Phone JOHN MATHUR Primary Care Provider Assessment Encounter Date Assessment Date Assessment LastModified by Organization Details LastModified Time 05/31/2024 05/31/2024 83-year-old female presents for bladder Botox Not available 05/31/2024 16:29:10 Plan of Treatment Reminders Order Date Submit Date Provider Last Modified By Organization Details Last Modified Time Details Appointments None recorded. Lab urinalysis, dipstick 2023 [facility], [address], [place] [address], [place], [address], 12:41:53 urinalysis, microscopic 2023 [email or web address] [facility], [address], [place] [address], [place], [address], 12:32:30 culture, urine 2023 024 [facility], [address], [address], [place], [address], 10:21:48 urinalysis, dipstick 2023 024 [facility], [address], [place] [address], [place], [address], 10:37:40 urinalysis, microscopic 2023 024 [facility], [address], [address], [place], [address], 10:33:49 Referral None recorded. Procedures None recorded. Surgeries None recorded. Imaging None recorded. Medication Orders None recorded. Patient TargetsNo targets recorded. Patient Instructions Encounter Date Encounter Id Patient Instructions Last Modified By Organization Details Last Modified Time 05/31/2024 [id number] 83-year-old female presents for bladder Botox. Botox performed without complication. [email or web address] Not available 05/31/2024 16:29:28 Reason for Referral None Reported. Results Created Date Observation Date Name Description Value Unit Range Abnormal Flag Note LastModifiedBy Organization Detail LastModifiedTime 05/17/2005/17/2024 [facility] MICRO - CS URISC AN blood - uriscan NEGATI VE negati ve Not Available [facility] [address], [place], [address], 05/17/2024 12:41:53 05/17/2005/17/2024 UA WITHO UT MICRO - CS URISC AN bilirubin - uriscan NEGATI VE mg/dL negati ve Not Available [facility] [address] [facility] [address], [place], [address], 05/17/2024 12:41:53 05/17/2005/17/2024 UA WITHO UT MICRO - CS URISC AN urobilinogen - uriscan NORMAL mg/dL normal Not Available [facility] [address] [facility] [address], [place], [address], 05/17/2024 12:41:53 05/17/2005/17/2024 UA WITHO UT MICRO - CS URISC AN ketones - uriscan NEGATI VE mg/dL negati ve Not Available [facility] [address] [facility] [address], [place], [address], 05/17/2024 12:41:53 05/17/2005/17/2024 UA WITHO UT MICRO - CS URISC AN protein - uriscan NEGATI VE mg/dL negati ve Not Available [facility] [address] [facility] [address], [place], [address], 05/17/2024 12:41:53 05/17/2005/17/2024 UA WITHO UT MICRO - CS URISC AN nitrites - uriscan NEGATI VE negati ve Not Available [facility] [address] [facility] [address], [place], [address], 05/17/2024 12:41:53 05/17/2005/17/2024 UA WITHO UT MICRO - CS URISC AN glucose - uriscan NEGATI VE mg/dL negati ve Not Available [facility] [address] [facility] [address], [place], [address], 05/17/2024 12:41:53 05/17/2005/17/2024 UA WITHO UT MICRO - CS URISC AN pH - uriscan 5.00 5.00-9 .00 Not Available [facility] [place] [facility] [address] [facility] [address] [facility] [address], [place], [address], 05/17/2024 12:41:53 05/17/2005/17/2024 UA WITHO UT MICRO - CS URISC AN sp. gravity - uriscan <=1.01 1.01-1 .03 Not Available [facility] [address] [facility] [address], [place], [address], 05/17/2024 12:41:53 05/17/2005/17/2024 UA WITHO UT MICRO - CS URISC AN leukocytes - uriscan NEGATI VE negati ve Not Available [facility] [address] [facility] [facility] [address] [facility] [address], [place], [address], 05/17/2024 12:41:53 05/17/2005/17/2024 UA WITHO UT MICRO - CS URISC AN color - uriscan YELLOW lt. yellow ;yello w Not Available [facility] [address] [facility] [address], [place], [address], 05/17/2024 12:41:53 05/17/20 24 05/17/2024 UA WITHO UT MICRO - CS URISC AN clarity - uriscan CLEAR clear Not Available [facility] [address] [facility] [address], [place], [address], 05/17/2024 12:41:53 05/17/2005/17/2024 UA WITHO UT MICRO - CS URISC AN total urine volume (mL) 50 /mL ----- ----- ----- ----- ----- ----- ----- ----- ----- ----- ----- ----- ----- ----- ---- *Deni marquez note the follo wing minim um quant ities for addit ional urine testi ng: - Atypi cals: 3 mL - Cytol ogy: 20 mL - GC/CH : 2 mL - FISH: 30 mL - Atypi cals w/ GC/CH : 5 mL - Cytol ogy PLUS FISH: 50 mL - Urine Cultu re: 3 mL ----- ----- ----- ----- ----- ----- ----- ----- ----- ----- ----- ----- ----- ----- ---- This lab resul t is being provi ded to you and your provi yelena at the same time in compl iance with the Centu ry Cures Act. Your provi yelena may not have had time to revie w and make recom menda tions based on the resul t. Robert cravajal allow up to one week for provi yelena revie w. Not Available [facility] [address] [facility] [address], [place], [address], 05/17/2024 12:41:53 05/17/20 24 05/17/2024 URINE CULTU RE final report MICROB IOLOGY RESULT S abnormal SOURC E Void KNOWN ALLER GIMELITA NKDA TREAT MENT none MEDIA PLATE D AT: Media plate d on 05/17 @ 12:19 PM COLON Y COUNT >100, 000 cfu/m l RESUL T Esche matthew a coli (Isol ate 1) Sensi tivit y Christianne sis [place] te 1 ----- ----- ----- ----- ----- ----- ----- - AMOX/ K CLAV <=8/4 *S AMP/S ULBAC BETHEA <=4/2 *S AMPIC ILLIN <=8*S AZTRE ONAM <=4*S CEFAZ OLIVA <=2*S CEFOX ITIN <=8*S CEFTA ZIDIM E <=1*S CEFTR IAXON E <= 1*S CIPRO FLOXA AARON <=0.2 5*S NITRO FURAN TOIN <=32* S PIP/T AZO <=8*S TETRA CYCLI NE <=4*S TRIME TH/LUNA LFA <=2/3 8*S Orga nisms that are susce ptibl e to tetra cycli ne are gener ally also susce ptibl e to doxyc yclin e and minoc yclin e. Any subst ituti on of drugs which have not been teste d for sensi tivit y shoul d be consi dered based on appro lila usage of the drugs . Infor matio n on doxyc yclin e and minoc yclin e can be found in the Physi karen' s Desk Refer ence or from the general acute hospitalf actur er. S= Susce ptibl e;I= Inter media te;R= Resis tant; ESBL= Resis tance due to confi rmed ESBL; Suspe cted ESBL= Posit kaylee scree clara only This lab resul t is being provi ded to you and your provi yelena at the same time in compl iance with the Centu ry Cures Act. Your provi yelena may not have had time to revie w and make recom menda tions based on the resul t. Robert e allow up to one week for provi yelena revie w. Not Available [facility] [address] [facility] [address], [place], [address], 05/19/2024 10:21:48 05/31/2005/31/2024 UA WITHO UT MICRO - CS URISC AN blood - uriscan NEGATI VE negati ve Not Available [facility] [address] [place] [address] [address], [place], [address], 05/31/2024 10:37:40 05/31/2005/31/2024 UA WITHO UT MICRO - CS URISC AN bilirubin - uriscan NEGATI VE mg/dL negati ve Not Available [facility] [address] [place] [address] [address], [place], [address], 05/31/2024 10:37:40 05/31/2005/31/2024 UA WITHO UT MICRO - CS URISC AN urobilinogen - uriscan NORMAL mg/dL normal Not Available [facility] [address] [facility] [address], [place], [address], 05/31/2024 10:37:40 05/31/2005/31/2024 UA WITHO UT MICRO - CS URISC AN ketones - uriscan NEGATI VE mg/dL negati ve Not Available [facility] [address] [place] [address] [address], [place], [address], 05/31/2024 10:37:40 05/31/2005/31/2024 UA WITHO UT MICRO - CS URISC AN protein - uriscan NEGATI VE mg/dL negati ve Not Available [facility] [address] [place] [address] [address], [place], [address], 05/31/2024 10:37:40 05/31/2005/31/2024 UA WITHO UT MICRO - CS URISC AN nitrites - uriscan NEGATI VE negati ve Not Available [facility] [address] [place] [address] [address], [place], [address], 05/31/2024 10:37:40 05/31/2005/31/2024 UA WITHO UT MICRO - CS URISC AN glucose - uriscan NEGATI VE mg/dL negati ve Not Available [facility] [address] [place] [address] [address], [place], [address], 05/31/2024 10:37:40 05/31/2005/31/2024 UA WITHO UT MICRO - CS URISC AN pH - uriscan 5.00 5.00-9 .00 Not Available [facility] [address] [place] [address] [address], [place], [address], 05/31/2024 10:37:40 05/31/2005/31/2024 UA WITHO UT MICRO - CS URISC AN sp. gravity - uriscan 1.01 1.01-1 .03 Not Available [facility] [address] [place] [address] [address], [place], [address], 05/31/2024 10:37:40 05/31/2005/31/2024 UA WITHO UT MICRO - CS URISC AN leukocytes - uriscan NEGATI VE negati ve Not Available [facility] [address] [place] [address] [address], [place], [address], 05/31/2024 10:37:40 05/31/2005/31/2024 UA WITHO UT MICRO - CS URISC AN color - uriscan YELLOW lt. yellow ;yello w Not Available [facility] [address] [place] [address] [address], [place], [address], 05/31/2024 10:37:40 05/31/2005/31/2024 UA WITHO UT MICRO - CS URISC AN clarity - uriscan CLEAR clear Not Available [facility] [address], [place], [address], 05/31/2024 10:37:40 05/31/2005/31/2024 UA WITHO UT MICRO - CS URISC AN total urine volume (mL) 65 /mL ----- ----- ----- ----- ----- ----- ----- ----- ----- ----- ----- ----- ----- ----- ---- *Deni marquez note the follo wing minim um quant ities for addit ional urine testi ng: - Atypi cals: 3 mL - Cytol ogy: 20 mL - GC/CH : 2 mL - FISH: 30 mL - Atypi cals w/ GC/CH : 5 mL - Cytol ogy PLUS FISH: 50 mL - Urine Cultu re: 3 mL ----- ----- ----- ----- ----- ----- ----- ----- ----- ----- ----- ----- ----- ----- ---- This lab resul t is being provi ded to you and your provi yelena at the same time in compl iance with the 21st Centu ry Cures Act. Your provi yelena may not have had time to revie w and make recom menda tions based on the resul t. Robert carvajal allow up to one week for provi yelena revie w. Not Available [facility] [address], [place], [address], 05/31/2024 10:37:40 Result Notes None recorded. Problems Name Problem SNOMED Code Status Onset Date Resolution Date Notes Provider Name and Address Organization Details Recorded Time Overactive urinary bladder 341588539 Active 024 NICOLAS RAMAN MD [address] [facility], [place], [address] , [facility] 4 15:30:10 Recurrent urinary tract infection 570677411 Active 024 NICOLAS RAMAN MD [address] [facility],[address] [place] [address], [address], [facility] 4 08:57:56 Urinary tract infectious disease 89665258 Active 024 NICOLAS RAMAN MD [address] [facility],[address] [place] [address], [address], [facility] 4 08:58:03 Problem Notes None recorded. Procedures Surgical History Date Name Laterality Status Provider Name and Address Organization Details Recorded Time 4 Cystoscopy with Botox Injections completed NICOLAS RAMAN MD [address] [place] [address],[address], [place], [address], [facility] 05/31/2024 16:29:04 4 Urine Culture completed Marybeth Rodriguez [facility] 05/16/2024 17:20:25 4 Urinalysis completed Lilly Shah [facility] 05/17/2024 12:33:20 Imaging Results None recorded. Procedure Notes None recorded. Medical Equipment None Reported. Allergies Allergen ID Allergen Name Allergen Category Reaction Reaction Severity Criticality Documentation Date Start Date Code Code System Note Provider Name and Address Organization Details Recorded Time 455248 levofloxa aaron medicatio n Not available Not available Not available 05/31/2024 78360 RxNorm Iliana Nevills [facility] 4 10:21:17 802689 codeine medicatio n Not available Not available Not available 05/31/2024 2670 RxNorm Iliana Nevills [facility], [facility] 4 10:21:25 244551 acetamino phen / hydrocodo ne medicatio n Not available Not available Not available 05/31/2024 96892 2 RxNorm Iliana Nevills [facility], [facility] 4 10:21:49 751927 Levaquin medicatio n Not available Not available Not available 05/31/2024 89148 2 RxNorm Iliana Nevills [facility] 4 10:22:28 441885 propoxyph clara medicatio n Not available Not available Not available 05/31/[address] [facility] 10:23:03 688787 Substance with sulfonami de structure and antibacte rial mechanism of action (substanc e) medicatio n Not available Not available Not available 05/31/2024 [address] [facility] 10:23:10 Medications Name Sig Start Date Stop [...] Updated DateTime 05/31/2024 157.48 cm 32.4 kg/m2 79793.[address] [facility] 05/31/2024 10:25:02 Social History Question Answer Notes LastModified by Organizat ion Details LastModified Time Tobacco Smoking Status Former Smoker Iliana person [facility] 05/31/2024 10:26:14 What Is Your Level Of Alcohol Consumption? None Information not available 05/31/2024 What Is Your Level Of Caffeine Consumption? Moderate Information not available 05/31/2024 When Did You Quit Smoking? 16+yearssince lastcigarjefe Information not available 05/31/2024 What Was The [...] High Blood Pressure Y Kidney Stones N Depression N Sexually Transmitted Infection N Cancer N Bleeding Disorder N Lung Disease N GERD/Acid Reflux N High Cholesterol Y Diabetes Y Heart Disease N Gynecological HistoryNo gynecological history recorded. Obstetrics History GPAL:G 0 P 0 0 0 0 Immunizations Vaccine Type Date Status Provider Name and Address Organization Details Recorded Time zoster recombinant 10/03/2019 [facility]/31[facility]24 10:17:44 zoster recombinant 07/23/2019 [facility] 05/31/2024 10:17:45 SARS-COV-2 (COVID-19) vaccine, UNSPECIFIED 10/31/2020 [facility] 05/31/2024 10:17:45 SARS-COV-2 (COVID-19) vaccine, UNSPECIFIED 11/21/2020 [facility] 05/31/2024 10:17:45 SARS-COV-2 (COVID-19) vaccine, UNSPECIFIED 12/21/2021 completed Iliana Nevills null, [facility] 05/31/2024 10:17:45 SARS-COV-2 (COVID-19) vaccine, UNSPECIFIED 04/19/2022 completed Iliana Nevills null, [facility] 05/31/2024 10:17:45 SARS-COV-2 (COVID-19) vaccine, UNSPECIFIED 05/22/2021 completed Iliana Nevills null, [facility] 05/31/2024 10:17:45 Respiratory syncytial virus (RSV), unspecified 05/10/2023 completed Iliana Nevills null, [facility] 05/31/2024 10:17:45 COVID-19, mRNA, LNP-S, PF, shadi-sucrose, 30 mcg/0.3 mL 04/19/2022 completed Iliana Nevills null, [facility] 05/31/2024 10:17:45 COVID-19, mRNA, LNP-S, PF, shadi-sucrose, 30 mcg/0.3 mL 05/01/2024 completed Iliana Nevills null, [facility] 05/31/2024 10:17:45 COVID-19, mRNA, LNP-S, PF, shadi-sucrose, 30 mcg/0.3 mL 05/04/2023 [facility]/31/[facility]24 10:17:45 pneumococcal polysaccharide PPV23 05/13/2016 completed [facility] null, [facility] 05/31/2024 10:17:45 Tdap 05/08/2018 completed Iliana Nevills null, [facility] 05/31/2024 10:17:45 Tdap 05/21/2008 completed Il[facility] Nevills null, [facility] 05/31/2024 10:17:45 Pneumococcal conjugate PCV 13 05/13/2015 [facility] 10:17:45 pneumococcal, unspecified formulation 05/21/2008 completed Iliana Nevills null, [facility] 05/31/2024 10:17:45 zoster live 05/14/2009 completed Iliana Nevills null, [facility] 05/31/2024 10:17:45 Influenza, high-dose, trivalent, PF 05/01/2024 completed Iliana Nevills null, [facility] 05/31/2024 10:17:45 Past Encounters Encounter ID Performer Location Encounter Start Date Encounter Closed Date Diagnosis/Indication Diagnosis SNOMED-CT Code Diagnosis ICD10 Code [id number] Lilly Cunha[facility] [address] [facility] [place] [address] 05/17/2024 12:23:46 05/17/2024 12:34:14 Overactive urinary bladder 824933530 N32.81 [id number] MD Alphonse MCWILLIAMS_[place] [address] [facility] [place] [address] 05/31/2024 10:07:51 06/01/2024 11:16:44 Urinary tract infectious disease 63044901 N39.0 Overactive urinary bladder 550375241 N32.81 Health Concerns Section Related Observation LastModified by Organization Detai ls LastModified Time None Recorded Concern Status LastModified by Organization Details LastModified Time None Recorded Advance Directives Directive None Recorded Payers Encounter Date Sequence Insurance Name Policy Number Policy West Covered Member ID West Member ID Guarantor Name 05/17/2024 1 [place] [id number] Emma A Boutell [id number] Emma A Boutell 05/31/2024 1 [place] [id number] Emma A Boutell [id number] Emma A Boutell Notes Date Note Type Note Provider Name and Address Organization Details Recorded Time 05/31/2024 text/html 83-year-old female with overactive bladder presents for bladder Botox NICOLAS RAMAN MD [address] [facility],[address], [place], [address], [facility] 05/31/2024 16:31:17 OBGyn Episode No OBEpisode recorded.
--- OUTSIDE RECORDS SUMMARY | 2024-07-08 06:06 | XMS_ITS | Continuity of Care Document ---
Author Organization [facility] lazaro, ro_[place] Address [address] [place] [address] Care Team Providers Care Retail Sales Professional Name Role Phone JOHN MATHUR Primary Care Provider Assessment No assessment recorded. Plan of Treatment Reminders Order Date Submit Date Provider Last Modified By Organization Details Last Modified Time Details Appointments None recorded. Lab urinalysis, dipstick 2023 [facility], [address], [place], [address], 12:41:53 urinalysis, microscopic 2023 [email or web address], [address], [address], [place], [address], 12:32:30 culture, urine 2023 [facility], [address], [place], [address], 10:21:48 Referral None recorded. Procedures None recorded. Surgeries None recorded. Imaging None recorded. Medication Orders None recorded. Patient TargetsNo targets recorded. Patient InstructionsNo instructions recorded. Reason for Referral None Reported. Problems Name Problem SNOMED Code Status Onset Date Resolution Date Notes Provider Name and Address Organization Details Recorded Time Overactive urinary bladder 830935333 Active NICOLAS RAMAN MD [address], [place], [address], [facility] 10/04/202 4 15:30:10 Recurrent urinary tract infection 896517649 Active 024 NICOLAS RAMAN MD [address] [place] [address], [phone], [employer] 4 08:57:56 Urinary tract infectious disease 97280898 Active 024 NICOLAS RAMAN MD [address] [place] [address],[address] [place] [address], [phone], [employer] 4 08:58:03 Problem Notes None recorded. Procedures Surgical History Date Name Laterality Status Provider Name and Address Organization Details Recorded Time 4 Cystoscopy with Botox Injections completed NICOLAS RAMAN MD [address] [place] [address],[address], [place], [address], [employer] 05/31/2024 16:29:04 4 Urine Culture completed Marybeth Rodriguez [facility] 05/16/2024 17:20:25 4 Urinalysis completed Lilly Shah [facility] 05/17/2024 12:33:20 Imaging Results None recorded. Procedure Notes None recorded. Medical Equipment None Reported. Allergies Allergen ID Allergen Name Allergen Category Reaction Reaction Severity Criticality Documentation Date Start Date Code Code System Note Provider Name and Address Organization Details Recorded Time 784499 levofloxa aaron medicatio n Not available Not available Not available 05/31/2024 05052 RxNorm Iliana Nevills [facility] 4 10:21:17 867564 codeine medicatio n Not available Not available Not available 05/31/2024 2670 RxNorm Iliana Nevills [facility], [facility] 4 10:21:25 243595 acetamino phen / hydrocodo ne medicatio n Not available Not available Not available 05/31/2024 26356 2 RxNorm Iliana Nevills [facility] 4 10:21:49 340795 Levaquin medicatio n Not available Not available Not available 05/31/2024 65232 2 RxNorm Iliana Nevills [facility] 4 10:22:28 610774 propoxyph clara medicatio n Not available Not available Not available 05/31/2024 8785 RxNorm Iliana person [facility] 4 10:23:03 225073 Substance with sulfonami de structure and antibacte rial mechanism of action (substanc e) medicatio n Not available Not available Not available 05/31/2024 76566 8003 SNOMED Iliana person [facility] 4 10:23:10 Medications Name [...] Available Not Available No t Available Vitals None Recorded Social History Question Answer Notes LastModified by Organizat ion Details LastModified Time Tobacco Smoking Status Former Smoker Iliana person [facility] 05/31/2024 10:26:14 What Is Your Level [...] Disease N Depression N GERD/Acid Reflux N Sexually Transmitted Infection N Cancer N High Cholesterol Y Diabetes Y Bleeding Disorder N Heart Disease N Gynecological HistoryNo gynecological history recorded. Obstetrics History GPAL:G 0 P 0 0 0 0 Immunizations Vaccine Type Date Status Provider Name and Address Organization Details Recorded Time zoster recombinant 10/03/2019 completed Iliana Nevills null, [facility] 05/31/2024 10:17:44 zoster recombinant 07/23/2019 completed Iliana Nevills null, [facility] 05/31/2024 10:17:45 SARS-COV-2 (COVID-19) vaccine, UNSPECIFIED 10/31/2020 completed Iliana Nevills null, [facility] 05/31/2024 10:17:45 SARS-COV-2 (COVID-19) vaccine, UNSPECIFIED 11/21/2020 completed Iliana Nevills null, [facility] 05/31/2024 10:17:45 SARS-COV-2 (COVID-19) vaccine, UNSPECIFIED 12/21/2021 completed Iliana Nevills null, [facility] 05/31/2024 10:17:45 SARS-COV-2 (COVID-19) vaccine, UNSPECIFIED 04/19/2022 completed Iliana Nevills null, [facility] 05/31/2024 10:17:45 SARS-COV-2 (COVID-19) vaccine, UNSPECIFIED 05/22/2021 completed Iliana Nevills null, [facility] 05/31/2024 10:17:45 Respiratory syncytial virus (RSV), unspecified 05/10/2023 completed Iliana Nevills null, [facility] 05/31/2024 10:17:45 COVID-19, mRNA, LNP-S, PF, shadi-sucrose, 30 mcg/0.3 mL 04/19/2022 completed Iliana Nevills null, [facility] 05/31/2024 10:17:45 COVID-19, mRNA, LNP-S, PF, shadi-sucrose, 30 mcg/0.3 mL 05/01/2024 completed Iliana Nevills null, [facility] 05/31/2024 10:17:45 COVID-19, mRNA, LNP-S, PF, shadi-sucrose, 30 mcg/0.3 mL 05/04/2023 completed Iliana Nevills null, [facility] 05/31/2024 10:17:45 pneumococcal polysaccharide PPV23 05/13/2016 [facility] 10:17:45 Tdap 05/08/2018 completed Iliana Nevills null, [facility] 05/31/2024 10:17:45 Tdap 05/21/2008 completed Iliana Nevills null, [facility] 05/31/2024 10:17:45 Pneumococcal conjugate PCV 13 05/13/2015 completed Iliana Nevills null, [facility] 05/31/2024 10:17:45 pneumococcal, unspecified formulation 05/21/2008 completed Iliana Nevills null, [facility] 05/31/2024 10:17:45 zoster live 05/14/2009 completed Iliana Nevills null, [facility] 05/31/2024 10:17:45 Influenza, high-dose, trivalent, PF 05/01/2024 completed Iliana Nevills null, [facility] 05/31/2024 10:17:45 Past Encounters Encounter ID Performer Location Encounter Start Date Encounter Closed Date Diagnosis/Indication Diagnosis SNOMED-CT Code Diagnosis ICD10 Code [id number] Lilly Cunha[facility] [address] [place] [phone] 05/17/2024 12:23:46 05/17/2024 12:34:14 Overactive urinary bladder 674934507 N32.81 Health Concerns Section Related Observation LastModified by Organization Detai ls LastModified Time None Recorded Concern Status LastModified by Organization Details LastModified Time None Recorded Payers Encounter Date Sequence Insurance Name Policy Number Policy West Covered Member ID West Member ID Guarantor Name 05/17/2024 1 [place]ICARE COST [id number] Emma Yang [id number] Emma Yang OBGyn Episode No OBEpisode recorded.
[2024-07-08 06:24] LABS: Basophils Percent Auto 0.5 % (0.0-3.0); Eosinophils Percent Auto 5.6 % (0.0-7.0); Hematocrit 39.9 % (33.0-51.0); Hemoglobin* 12.8 gm/dL (12.0-16.0); Immature Granulocytes Pct Auto 0.2 %; Lymphocytes Percent Auto 16.3 % (20-44); Mean Corpuscular HGB Conc 32 gm/dL (32-36); Mean Corpuscular Hemoglobin 31 pg (26-34); Mean Corpuscular Volume 95 fL (80-100); Monocytes Percent Auto 8.9 % (0.0-11.0); Neutrophils Percent Auto 68.5 % (42.0-72.0); Platelet Count* 257 K/uL (140-440); Red Blood Count 4.19 m/uL (4.00-5.20); White Blood Count* 12.92 K/uL (4.50-11.00)
[2024-07-08] MEDS: ACETAMINOPHEN 500 MG TABLET 1000 MG PO (06:27)
[2024-07-08 06:47] LABS: Chloride* 107 mmol/L (96-114); Potassium* 4.8 mmol/L (3.6-5.1); Sodium* 141 mmol/L (135-149)
[2024-07-08 06:49] LABS: Slide Review Reflex No
[2024-07-08 06:50] LABS: Creatinine* 0.7 mg/dL (0.5-1.5); Estimated Glomerular Filt Rate 86 ml/min
[2024-07-08 06:51] LABS: Anion Gap 8 mEq/L (7-15); Blood Urea Nitrogen* 20 mg/dL (7-30); Calcium* 9.6 mg/dL (8.4-10.6); Carbon Dioxide* 26 mmol/L (20-32); Glucose* 191 mg/dL (60-115)
[2024-07-08 06:54] LABS: C Reactive Protein* < 0.5 mg/dL (0.5-1.0)
[2024-07-08] MEDS: PIPERACILLIN/TAZOBACTAM 3.375 GM in 0.9 % SODIUM CHLORIDE Mini-bag 100 ML IVPB ×3 (07:37→19:43)
[2024-07-08] MEDS: VANCOMYCIN 1.25 GM/250 ML 1.25 GM/250 ML PIGGYBACK IVPB (08:16)
--- NOTE | 2024-07-08 09:10 | PM.IMHP1 ---
Hospitalist- H&P: HPI History of Present Illness Date Seen: 07/08/24 Chief complaint: R foot sore Narrative: Emma Garcia) is a 83 year old female 2ho presented to the ER for pain and erythema of right 4th toe. On Tuesday (07/02) she had a pedicure with some skin injury/bleeding; had a powder placed by refrigerating technician for hemostasis. [place] fine until 2 days ago, started noting pain, edema, erythema at that time. No fevers, no other injury. Not taking anything for symptoms. Pain worse with ambulation and has been walking alot (baking). ER Course and Findings: - WBC 12.9 with PMN predominance - Glucose 191 - blood culture obtained and pending, given Vancomycin and Zosyn IV - significant erythema and edema of R 4th toe, no acute abnormalities on XRay Moved to [place] from [place] within the past year. Dr. Garner is PCP, histories reviewed. Has history of previous toe infection following a pedicure and a finger surgery for a cyst (family recalls a possibility of osteomyelitis at the time, Cristiane disagrees) Review of Systems Narrative: - notes history of yeast infections after abx (recently had a 10 day course of abx for UTI and required Diflucan x2) - chronic constipation, currently stable on daily stool softeners [facility] Medical History (Updated 07/08/24 @ 15:56 by Donna Shrestha MD) Essential hypertension ?I10 - Essential (primary) hypertension (ICD-10) Type 2 diabetes mellitus with complication ?E11.8 - Type 2 diabetes mellitus with unspecified complications (ICD-10) Primary osteoarthritis of right knee ?M17.11 - Unilateral primary osteoarthritis, right knee (ICD-10) Stress incontinence ?N39.3 - Stress incontinence (female) (male) (ICD-10) Diabetic neuropathy ?E11.40 - Type 2 diabetes mellitus with diabetic neuropathy, unspecified (ICD-10) Vitamin D deficiency ?E55.9 - Vitamin D deficiency, unspecified (ICD-10) ELVIRA (obstructive sleep apnea) ?G47.33 - Obstructive sleep apnea (adult) (pediatric) (ICD-10) Mitral regurgitation ?I34.0 - Nonrheumatic mitral (valve) insufficiency (ICD-10) Chronic constipation ?K59.09 - Other constipation (ICD-10) Varicose veins with pain ?I83.819 - Varicose veins of unspecified lower extremity with pain (ICD-10) Mixed incontinence ?N39.46 - Mixed incontinence (ICD-10) Psoriasis ?L40.9 - Psoriasis, unspecified (ICD-10) Spondylosis ?M47.9 - Spondylosis, unspecified (ICD-10) Labial cyst ?N90.7 - Vulvar cyst (ICD-10) Dense breasts ?R92.30 - Dense breasts, unspecified (ICD-10) Diabetic eye exam ?Z01.00 - Encounter for examination of eyes and vision without abnormal findings (ICD-10) ?E11.9 - Type 2 diabetes mellitus without complications (ICD-10) Hx of echocardiogram ?Z92.89 - Personal history of other medical treatment (ICD-10) History of angina ?Z86.79 - Personal history of other diseases of the circulatory system (ICD-10) Hx of small bowel obstruction ?Z87.19 - Personal history of other diseases of the digestive system (ICD-10) Surgical History Status post right foot surgery ?Z98.890 - Other specified postprocedural states (ICD-10) History of arthroplasty of right knee ?Z96.651 - Presence of right artificial knee joint (ICD-10) H/O oophorectomy History of carpal tunnel surgery ?Z98.890 - Other specified postprocedural states (ICD-10) H/O vaginal surgery ?Z98.890 - Other specified postprocedural states (ICD-10) H/O discectomy ?Z98.890 - Other specified postprocedural states (ICD-10) H/O total hip arthroplasty ?Z96.649 - Presence of unspecified artificial hip joint (ICD-10) Hx of cataract surgery ?Z98.49 - Cataract extraction status, unspecified eye (ICD-10) History of cholecystectomy ?Z90.49 - Acquired absence of other specified parts of digestive tract (ICD-10) History of colon surgery ?Z98.890 - Other specified postprocedural states (ICD-10) H/O cardiac catheterization ?Z98.890 - Other specified postprocedural states (ICD-10) History of hysterectomy ?Z90.710 - Acquired absence of both cervix and uterus (ICD-10) Hx of shoulder surgery ?Z98.890 - Other specified postprocedural states (ICD-10) Family History Father Coronary artery disease CHF (congestive heart failure) Diabetes High blood pressure Mother High blood pressure High cholesterol Vulvar cancer Thyroid cancer Maternal Grandfather Colon cancer Brother Sleep apnea Uncle Stomach cancer Social History (Updated 07/08/24 @ 11:41 by Donna Shrestha MD) Narrative: Non-smoker, no alcohol use, lives with Felipe who would be MDM if needed. Full Code but does not desire long-term intubation.? 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 What is your current living situation?: I presently have a place to live Problems where you live: no known problems Problems where you live details: none In the past 12 months, utilities in danger of being shut off: no In the past 12 mos, have been you worried that your food would run out before you had money to buy more?: never true In the past 12 mos, the food you bought just didn't last and you didn't have money to buy more?: never true Highest level of school completed/degree received: Associate degree: occupational, technical, vocational program Smoking Status: Never smoker Do you use any of these nicotine containing products: None Second hand tobacco smoke exposure: No How often do you have a drink containing alcohol: never How often do you have six or more drinks on one occasion: Never AUDIT-C Alcohol total score: 0 Non-prescribed substance use: denies use Caffeine: Yes (coffee) How often does anyone, including family, friends and others, physically hurt you: never How often does anyone, including family, friends and others, insult or talk down to you: never How often does anyone, including family, friends and others, threaten you with harm: never How often does anyone, including family, friends and others, scream or curse at you: never Gender Identity: female service: No Meds Home Medications and Allergies Home Medications ?Medication ?Instructions ?Recorded ?Confirmed ?Type ascorbic acid (vitamin C) 500 mg 500 mg PO DAILY 04/06/24 07/08/24 History tablet cholecalciferol (vitamin D3) 25 50 mcg PO DAILY 04/06/24 07/08/24 History mcg (1,000 unit) capsule docusate sodium 100 mg capsule 200 mg PO BID 04/06/24 07/08/24 History (Dulcolax Stool Softener (docusate)) amlodipine 2.5 mg tablet 2.5 mg PO DAILY@1800 07/08/24 07/08/24 History calcium carbonate (Oyster Shell 500 mg PO DAILY 07/08/24 07/08/24 History Calcium) metformin 500 mg tablet 500 mg PO BIDWM 07/08/24 07/08/24 History rosuvastatin 5 mg tablet 5 mg PO DAILY@1800 07/08/24 07/08/24 History turmeric 400 mg capsule 400 mg PO DAILY 07/08/24 07/08/24 History Allergies Allergy/AdvReac Type Severity Reaction Status Date / Time codeine Allergy Verified 07/08/24 05:39 hydrocodone Allergy Verified 07/08/24 09:24 propoxyphene Allergy NAUSEA Verified 07/08/24 09:24 VOMITING canagliflozin (From Invokana) AdvReac HIVES AND Verified 07/08/24 09:24 ITCHING levofloxacin (From Levaquin) AdvReac MYALGIAS Verified 07/08/24 09:24 Opioids - Morphine Analogues AdvReac Verified 07/08/24 09:24 oxycodone AdvReac Rash Verified 07/08/24 09:24 Sulfa (Sulfonamide AdvReac swelling Verified 07/08/24 05:39 Antibiotics) dermabond prineo AdvReac rash Uncoded 05/02/24 09:06 Exam Narrative: Exam Narrative: GEN: Alert and oriented, answering questions appropriately HEENT: EOMIs bilaterally, no scleral icterus CV: RRR, No concerning murmurs R: LCTA bilaterally without concerning wheezing Ext: No concerning edema, + pulses. Erythema and edema of R 4th toe, + ttp. Extension of erythema caudally, outlined Skin: No other concerning skin lesions or findings Neuro: Nonfocal Psych: Appropriate Const: Vital Signs, click to edit/add: Vital Signs - 24 hr 07/08/24 05:35 07/08/24 08:20 Temperature 97.8 F 97.8 F Pulse Rate [Right Pulse Oximeter] 70 68 Respiratory Rate 16 18 Blood Pressure [Ri ght Upper Arm] 182/75 H 142/74 H Pulse Oximetry 95 95 Oxygen Delivery Me thod Room Air Room Air Hospitalist - H&P: Result Labs Labs: Short CBC 07/08/24 Range/Units 06:21 WBC 12.92 H (4.50-11.00) K/uL Hgb 12.8 (12.0-16.0) gm/dL Hct 39.9 (33.0-51.0) % Plt Count 257 (140-440) K/uL BMP 07/08/24 06:21 Sodium 141 Potassium 4.8 Chloride 107 Carbon Dioxide 26 BUN 20 Creatinine 0.7 Glucose 191 H Calcium 9.6 Assessment and Plan Assessment and plan (1) Cellulitis of fourth toe of right foot: Problem comment: - given history of this and diabetic status, high risk for complications - continue Vancomycin and Zosyn (07/08), Dr. Aranda of Podiatry consulted, will see patient 07/09 Status: Acute (2) Type 2 diabetes mellitus with complication: Problem comment: - on Metformin, last A1C 6.9 - follow accuchecks, low dose SSI Status: Acute (3) Diabetic neuropathy: Problem comment: - increases risk for complications from toe cellulitis Status: Acute (4) ELVIRA (obstructive sleep apnea): Problem comment: - uses CPAP regularly, will continue this during stay Status: Acute Plan - per above - SCDs, ambulation, Lovenox for ppx - updated at bedside, questions answered
--- NOTE | 2024-07-08 12:02 | REH.OT ---
OT orders received for evaluate and treat. Patient completely independent in all ADLs/IADLs and ambulates within her room independently. Patients present condition/injury is not impacting her participation in daily activities, OT not warranted at this time.
[2024-07-08] MEDS: DOCUSATE SODIUM 100 MG CAPSULE 200 MG PO (13:59)
[2024-07-08] MEDS: METFORMIN 500 MG TABLET PO ×2 (13:59→18:11)
[2024-07-08] MEDS: LACTOBACILLUS ACIDOPHILUS 1 TABLET 2 TAB PO ×2 (13:59→18:11)
[2024-07-08] MEDS: ROSUVASTATIN CALCIUM 10 MG TABLET 5 MG PO (18:10)
[2024-07-08] MEDS: INSULIN ASPART 100 UNIT/ML SUBCUT ×2 (18:10→20:56)
[2024-07-08] MEDS: AMLODIPINE 5 MG TABLET 2.5 MG PO (18:12)
--- NOTE | 2024-07-08 19:35 | PC.NURSE ---
shift note: vss stable. pt afeb. LS clr. pt denies pain in rt foot. Rt 4 toe swollen and red. marked redness to top of rt foot in 3 areas. IV patent. blood sugar 163 @ supper.
[2024-07-08] MEDS: SODIUM CHLORIDE 0.9 % (FLUSH) 10 ML SYRINGE 5 ML IVF (20:57)
[2024-07-09] VITALS (7 sets, daily range): BP systolic 126–148; BP diastolic 58–79; PULSE 60–71; RESP 16–18; TEMP 36.5–36.8; O2SAT 92–96
[2024-07-09] MEDS: PIPERACILLIN/TAZOBACTAM 3.375 GM in 0.9 % SODIUM CHLORIDE Mini-bag 100 ML IVPB ×4 (01:52→19:38)
--- NOTE | 2024-07-09 05:04 | PC.NURSE ---
Shift note: Pt is doing well. Right 4th toe continue to be red, swelling and tender. Pt endorsed that it appears better than yesterday. No fever recorded. Pt has been using CPAP throughout the shift. Alert and oriented, pleasant and cooperated with treatment and care. Pt had adequate rest and sleep. SBA to independent in room.
[2024-07-09 06:31] LABS: Basophils Absolute Auto 0.05 K/uL (0.00-0.30); Basophils Percent Auto 0.7 % (0.0-3.0); Eosinophils Percent Auto 10.5 % (0.0-7.0); Hematocrit 36.7 % (33.0-51.0); Hemoglobin* 11.7 gm/dL (12.0-16.0); Immature Granulocytes Abs Auto 0.02 K/uL (0.00-0.30); Immature Granulocytes Pct Auto 0.3 %; Lymphocytes Absolute Auto 2.09 K/uL (0.90-2.90); Lymphocytes Percent Auto 27.7 % (20-44); Mean Corpuscular HGB Conc 32 gm/dL (32-36); Mean Corpuscular Hemoglobin 30 pg (26-34); Mean Corpuscular Volume 95 fL (80-100); Monocytes Percent Auto 10.6 % (0.0-11.0); Neutrophils Absolute Auto 3.79 K/uL (1.7-7.0); Neutrophils Percent Auto 50.2 % (42.0-72.0); Platelet Count* 247 K/uL (140-440); RDW Coefficient of Variation % 13.2 % (11.5-15.5); Red Blood Count 3.87 m/uL (4.00-5.20); White Blood Count* 7.54 K/uL (4.50-11.00)
[2024-07-09 06:33] LABS: Slide Review Reflex No
[2024-07-09 06:41] LABS: Chloride* 108 mmol/L (96-114); Potassium* 4.1 mmol/L (3.6-5.1); Sodium* 139 mmol/L (135-149)
[2024-07-09 06:44] LABS: Anion Gap 9 mEq/L (7-15); Blood Urea Nitrogen* 18 mg/dL (7-30); Carbon Dioxide* 22 mmol/L (20-32); Creatinine* 0.9 mg/dL (0.5-1.5); Estimated Glomerular Filt Rate 64 ml/min
[2024-07-09 06:45] LABS: Glucose* 180 mg/dL (60-115)
[2024-07-09] MEDS: SODIUM CHLORIDE 0.9 % (FLUSH) 10 ML SYRINGE 5 ML IVF ×3 (07:51→20:34)
[2024-07-09] MEDS: VANCOMYCIN 1.25 GM/250 ML 1.25 GM/250 ML PIGGYBACK IVPB (08:44)
[2024-07-09] MEDS: LACTOBACILLUS ACIDOPHILUS 1 TABLET 2 TAB PO ×3 (08:44→18:01)
[2024-07-09] MEDS: METFORMIN 500 MG TABLET PO ×2 (11:02→18:01)
--- NOTE | 2024-07-09 13:16 | PC.SOCIAL ---
Discharge planning: oncology social worker met with pt and her today to discuss discharge planning. Pt and her were thankful for the visit, but shared that they had no concerns about returning home when pt is ready for discharge. Pt said that she is hoping to have some pain relief after the doctor removes her toe nail later today. Social work to follow-up as needed.
--- NOTE | 2024-07-09 14:41 | P.IMPN_ITS ---
Progress Note: A&P Assessment and plan (1) Cellulitis of fourth toe of right foot: Problem details: - given history of this and diabetic status, high risk for complications - continue Vancomycin and Zosyn (07/08), Dr. Aranda of Podiatry following and removing toenail 07/09 - likely home on oral antibiotics tomorrow Status: Acute (2) Type 2 diabetes mellitus with complication: Problem details: - on Metformin, last A1C 6.9 - follow accuchecks, low dose SSI Status: Acute (3) Diabetic neuropathy: Problem details: - increases risk for complications from toe cellulitis Status: Acute (4) ELVIRA (obstructive sleep apnea): Problem details: - uses CPAP regularly, will continue this during stay Status: Acute Plan - per above - likely home tomorrow on oral abx 07/09 pending Podiatry consult Subjective Date Seen: 07/09/24 Interval history: Cristiane was admitted to the hospital yesterday for cellulitis of her right 4th toe after a pedicure. Also has diabetes with neuropathy; initiated on IV Zosyn and Vancomycin upon adm ission. Seeing Dr. Aranda of Podiatry today. Afebrile, labs stable. Exam Narrative: Exam Narrative: GEN: Alert and oriented, nontoxic HEENT: EOMIs bilaterally, no scleral icterus CV: RRR, No concerning murmurs R: Breathing comfortably, no wheezing Ext: R 4th toe remains erythematous with mild edema, + ttp (but improved) Skin: No other concerning skin lesions or rashes Neuro: Nonfocal Psych: Appropriate Const: Vital Signs, click to edit/add: Vital Signs - 24 hr 07/08/24 15:00 07/08/24 15:00 07/08/24 19:00 Temperature 97.8 F 97.9 F Pulse Rate [Left] 69 69 70 Respiratory Rate 16 16 16 Blood Pressure [Le ft Arm] 135/73 128/64 Pulse Oximetry 96 95 Oxygen Delivery Me thod Room Air Room Air 07/08/24 23:00 07/08/24 23:00 07/09/24 03:00 Temperature 97.9 F 97.9 F Pulse Rate [Left] 66 66 65 Respiratory Rate 16 16 16 Blood Pressure [Le ft Arm] 119/55 L 132/71 Pulse Oximetry 93 92 Oxygen Delivery Me thod Room Air Room Air 07/09/24 07:56 07/09/24 08:14 07/09/24 13:16 Temperature 98.0 F 97.8 F Pulse Rate [Left] 62 62 71 Respiratory Rate 16 16 18 Blood Pressure [Le ft Arm] 141/69 H 138/65 Pulse Oximetry 95 96 Oxygen Delivery Me thod Room Air Room Air Labs Labs: Laboratory Results - last 24 hr 07/09/24 06:05 WBC 7.54 RBC 3.87 L Hgb 11.7 L Hct 36.7 MCV 95 MCH 30 MCHC 32 RDW Coeff of Calli 13.2 Plt Count 247 Neut % (Auto) 50.2 Lymph % (Auto) 27.7 [place] % (Auto) 10.6 Eos % (Auto) 10.5 H Baso % (Auto) 0.7 Neut # (Auto) 3.79 Lymph # (Auto) 2.09 [place] # (Auto) 0.80 Eos # (Auto) 0.80 H Baso # (Auto) 0.05 Abs Immat Gran (auto) 0.02 Imm/Tot Granulo (auto) 0.3 Sodium 139 Potassium 4.1 Chloride 108 Carbon Dioxide 22 Anion Gap 9 BUN 18 Creatinine 0.9 Estimated Creat Clear 34.30 Estimated GFR 64 Glucose 180 H Calcium 9.0 C-Reactive Protein 1.0
[2024-07-09] MEDS: ACETAMINOPHEN 325 MG TABLET 975 MG PO ×2 (16:29→23:20)
[2024-07-09] MEDS: AMLODIPINE 5 MG TABLET 2.5 MG PO (18:01)
[2024-07-09] MEDS: ROSUVASTATIN CALCIUM 10 MG TABLET 5 MG PO (18:01)
--- NOTE | 2024-07-09 19:50 | PC.NURSE ---
End of shift-- Very pleasant and cooperative, alert and oriented patient. VSS and pt is afebrile. SPO2 maintained >90% on RA. She c/o some moderate pain in right toe this evening which was relieved with Tylenol. LS CTA. Right toe remained reddened edematous and warm to touch this morning. This afternoon, Dr. Aranda removed toenail at bedside and pt tolerated it well. She denied nausea and ate a regular diet without difficulty. She was up to the BR independently and tolerated it well. was at bedside this morning and appears very loving and supportive. Report to REINALDO Murphy.
[2024-07-09] MEDS: INSULIN ASPART 100 UNIT/ML SUBCUT (20:34)
[2024-07-10] MEDS: PIPERACILLIN/TAZOBACTAM 3.375 GM in 0.9 % SODIUM CHLORIDE Mini-bag 100 ML IVPB ×2 (01:24→08:10)
[2024-07-10 02:02] VITALS: BP 122/68; PULSE 59; RESP 16; TEMP 36.4; O2SAT 94
--- NOTE | 2024-07-10 06:19 | PC.NURSE ---
End of shift: Pt AxOx4, cooperative, and pleasant. VSS, SPO2 maintained >90% on RA. She reported 1/10 pain in right toe that was relieved with Tylenol. Right toe remained reddened edematous and warm to touch. R foot soaked and dressing changed. Serosanguineous drainage with no odor present. Pt denied nausea and tolerates reg diet and fluids well. Continent of the bladder and bowels. Up inep in room. Pt appears resting with call light in reach.
[2024-07-10 06:33] LABS: Basophils Absolute Auto 0.05 K/uL (0.00-0.30); Basophils Percent Auto 0.6 % (0.0-3.0); Hematocrit 41.2 % (33.0-51.0); Hemoglobin* 13.1 gm/dL (12.0-16.0); Immature Granulocytes Abs Auto 0.04 K/uL (0.00-0.30); Immature Granulocytes Pct Auto 0.5 %; Lymphocytes Percent Auto 28.2 % (20-44); Mean Corpuscular HGB Conc 32 gm/dL (32-36); Mean Corpuscular Hemoglobin 30 pg (26-34); Mean Corpuscular Volume 95 fL (80-100); Neutrophils Absolute Auto 4.03 K/uL (1.7-7.0); Neutrophils Percent Auto 51.7 % (42.0-72.0); Platelet Count* 275 K/uL (140-440); RDW Coefficient of Variation % 13.3 % (11.5-15.5); Red Blood Count 4.32 m/uL (4.00-5.20)
[2024-07-10 06:48] LABS: Slide Review Reflex No
[2024-07-10 06:56] LABS: Creatinine* 0.9 mg/dL (0.5-1.5); Estimated Glomerular Filt Rate 64 ml/min
[2024-07-10 06:57] LABS: Blood Urea Nitrogen* 20 mg/dL (7-30); Calcium* 9.4 mg/dL (8.4-10.6); Carbon Dioxide* 24 mmol/L (20-32); Glucose* 162 mg/dL (60-115)
[2024-07-10 07:07] LABS: Anion Gap 10 mEq/L (7-15); Chloride* 107 mmol/L (96-114); Potassium* 4.1 mmol/L (3.6-5.1); Sodium* 141 mmol/L (135-149)
--- NOTE | 2024-07-10 07:55 | P.PODCN_ITS ---
HPI - Podiatry Data of Consult Time Seen by Provider: 15:00 Date Seen: 07/09/24 Consult date: 07/09/24 Requesting physician: Donna Shrestha MD Primary care provider: Maria Antonia Garner MD Consult Narrative Narrative: Emma Yang is a 83 year old female admitted for cellulitis of her right foot. she had a pedicure and was cut and the infection started after this. she was seen in the ED and admitted. she has not had issues in the past with pedicures. She has recently moved here from [place]. cc:: CC: Donna Shrestha MD Review of Systems Status of ROS: Reports: 10 or more systems reviewed and unremarkable except as noted in History and below [facility] Medical History (Updated 07/09/24 @ 15:08 by Donna Shrestha MD) Essential hypertension ?I10 - Essential (primary) hypertension (ICD-10) Type 2 diabetes mellitus with complication ?E11.8 - Type 2 diabetes mellitus with unspecified complications (ICD-10) Primary osteoarthritis of right knee ?M17.11 - Unilateral primary osteoarthritis, right knee (ICD-10) Stress incontinence ?N39.3 - Stress incontinence (female) (male) (ICD-10) Diabetic neuropathy ?E11.40 - Type 2 diabetes mellitus with diabetic neuropathy, unspecified (ICD-10) Vitamin D deficiency ?E55.9 - Vitamin D deficiency, unspecified (ICD-10) ELVIRA (obstructive sleep apnea) ?G47.33 - Obstructive sleep apnea (adult) (pediatric) (ICD-10) Mitral regurgitation ?I34.0 - Nonrheumatic mitral (valve) insufficiency (ICD-10) Chronic constipation ?K59.09 - Other constipation (ICD-10) Varicose veins with pain ?I83.819 - Varicose veins of unspecified lower extremity with pain (ICD-10) Mixed incontinence ?N39.46 - Mixed incontinence (ICD-10) Psoriasis ?L40.9 - Psoriasis, unspecified (ICD-10) Spondylosis ?M47.9 - Spondylosis, unspecified (ICD-10) Labial cyst ?N90.7 - Vulvar cyst (ICD-10) Dense breasts ?R92.30 - Dense breasts, unspecified (ICD-10) Diabetic eye exam ?Z01.00 - Encounter for examination of eyes and vision without abnormal findings (ICD-10) ?E11.9 - Type 2 diabetes mellitus without complications (ICD-10) Hx of echocardiogram ?Z92.89 - Personal history of other medical treatment (ICD-10) History of angina ?Z86.79 - Personal history of other diseases of the circulatory system (ICD- 10) Hx of small bowel obstruction ?Z87.19 - Personal history of other diseases of the digestive system (ICD-10) Surgical History Status post right foot surgery ?Z98.890 - Other specified postprocedural states (ICD-10) History of arthroplasty of right knee ?Z96.651 - Presence of right artificial knee joint (ICD-10) H/O oophorectomy History of carpal tunnel surgery ?Z98.890 - Other specified postprocedural states (ICD-10) H/O vaginal surgery ?Z98.890 - Other specified postprocedural states (ICD-10) H/O discectomy ?Z98.890 - Other specified postprocedural states (ICD-10) H/O total hip arthroplasty ?Z96.649 - Presence of unspecified artificial hip joint (ICD-10) Hx of cataract surgery ?Z98.49 - Cataract extraction status, unspecified eye (ICD-10) History of cholecystectomy ?Z90.49 - Acquired absence of other specified parts of digestive tract (ICD- 10) History of colon surgery ?Z98.890 - Other specified postprocedural states (ICD-10) H/O cardiac catheterization ?Z98.890 - Other specified postprocedural states (ICD-10) History of hysterectomy ?Z90.710 - Acquired absence of both cervix and uterus (ICD-10) Hx of shoulder surgery ?Z98.890 - Other specified postprocedural states (ICD-10) Family History Father Coronary artery disease CHF (congestive heart failure) Diabetes High blood pressure Mother High blood pressure High cholesterol Vulvar cancer Thyroid cancer Maternal Grandfather Colon cancer Brother Sleep apnea Uncle Stomach cancer Social History (Updated 07/08/24 @ 11:41 by Donna Shrestha MD) Narrative: Non-smoker, no alcohol use, lives with Felipe who would be MDM if needed. Full Code but does not desire long-term intubation.? 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 What is your current living situation?: I presently have a place to live Problems where you live: no known problems Problems where you live details: none In the past 12 months, utilities in danger of being shut off: no In the past 12 mos, have been you worried that your food would run out before you had money to buy more?: never true In the past 12 mos, the food you bought just didn't last and you didn't have money to buy more?: never true Highest level of school completed/degree received: Associate degree: occupational, technical, vocational program Smoking Status: Never smoker Do you use any of these nicotine containing products: None Second hand tobacco smoke exposure: No How often do you have a drink containing alcohol: never How often do you have six or more drinks on one occasion: Never AUDIT-C Alcohol total score: 0 Non-prescribed substance use: denies use Caffeine: Yes (coffee) How often does anyone, including family, friends and others, physically hurt you : never How often does anyone, including family, friends and others, insult or talk down to you: never How often does anyone, including family, friends and others, threaten you with harm: never How often does anyone, including family, friends and others, scream or curse at you: never Gender Identity: female service: No Exam Narrative: Exam Narrative: General: No distress, resting comfortable. Vascular: palpable pedal pulses. Neuro: sensate to light touch. Msk: normal muscle strength. no gross deformity. Derm: erythema to the 4th toe surrounding the nail right foot. mild erythema to the dorsal forefoot. extreme tenderness to the 4th toenail. Nails are thick, brittle, discolored with subungual debris. there is purulence under the 4th toenail. x-ray: no evidence of osteomyelitis A: Paronychia with cellulitis right 4th toe P: recommend removal of the toenail to speed up resolution of the infection. I reviewed the procedure with Emma. she wishes to proceed. she tolerated procedure well. soak 2-3x day in warm water with epsom salt or dish soap or hibiclenz. cover with medihoney and band aid. antibiotics per hospitalist. F/u with PCP. Procedure: after verbal consent and sterile prep 4mL of 1% lidocaine plain injected into the 4th toe right foot. area prepped with betadine. tourniquet placed. Toenail removed from nail bed and surrounding tissue. no underlying ulcertion or sinus tracks. nail bed healthy. sterile dressing placed and christelle rniquet removed. normal CFT returned to toe. Const: Vital Signs, click to edit/add: Vital Signs - 24 hr 07/09/24 07:56 07/09/24 08:14 07/09/24 13:16 Temperature 98.0 F 97.8 F Pulse Rate [Left] 62 62 71 Respiratory Rate 16 16 18 Blood Pressure [Le ft Arm] 141/69 H 138/65 Pulse Oximetry 95 96 Oxygen Delivery Me thod Room Air Room Air 07/09/24 15:00 07/09/24 15:00 07/09/24 19:00 Temperature 97.7 F 98.2 F Pulse Rate [Left] 65 65 63 Respiratory Rate 16 16 16 Blood Pressure [Le ft Arm] 139/71 126/58 L Pulse Oximetry 93 96 Oxygen Delivery Me thod Room Air Room Air 07/09/24 23:00 07/10/24 02:02 Temperature 98 F 97.6 F Pulse Rate [Left] 60 59 L Respiratory Rate 16 16 Blood Pressure [Le ft Arm] 148/79 H 122/68 Pulse Oximetry 95 94 Oxygen Delivery Me thod Room Air CPAP Nail Debridement Qualifies If: Qualifiers If:: A patient qualifies for nail debridement if they have: 1 class A finding (Q7) 2 class B findings (Q8) OR 1 class B & 2 class C findings in addition to a primary condition (Q9)
[2024-07-10 08:00] VITALS: BP 149/79; PULSE 68; RESP 16; TEMP 36.4; O2SAT 97
[2024-07-10] MEDS: VANCOMYCIN 1.25 GM/250 ML 1.25 GM/250 ML PIGGYBACK IVPB (08:23)
[2024-07-10] MEDS: METFORMIN 500 MG TABLET PO (08:23)
[2024-07-10] MEDS: LACTOBACILLUS ACIDOPHILUS 1 TABLET 2 TAB PO (08:23)
--- NOTE | 2024-07-10 08:24 | PM.DS1 ---
DS: Providers Provider Date Seen: 07/10/24 Date of admission: 07/08/24 09:28 Primary care physician: Maria Antonia Garner MD Admitting Clinician: Donna Shrestha MD Consults: PT and OT, Podiatry Attending Physician on discharge: Donna Shrestha MD Date of Discharge: 07/10/24 DS: Diagnosis Discharge Diagnosis (1) Cellulitis of fourth toe of right foot: Status: Acute Problem details: - given history of this and diabetic status, high risk for complications - continue Vancomycin and Zosyn (07/08), Dr. Aranda of Podiatry followed during stay, removed toenail 07/09 - appropriate for d/c home on oral abx 07/10 (2) Type 2 diabetes mellitus with complication: Status: Acute Problem details: - on Metformin, last A1C 6.9 - follow accuchecks, low dose SSI (3) Diabetic neuropathy: Status: Acute Problem details: - increases risk for complications from toe cellulitis (4) ELVIRA (obstructive sleep apnea): Status: Acute Problem details: - uses CPAP regularly, will continue this during stay DS: Summary Hospital Course Hospital Course: Cristiane was admitted to the hospital on 07/08 for cellulitis of her right 4th toe following a pedicure. Comorbidities include noninsulin dependent diabetes + neuropathy; initiated on IV Zosyn and Vancomycin upon admission. Dr. Aranda of Podiatry followed, removed nail on 07/09/24. Patient remained afebrile with stable labs, appropriate for d/c home on oral Augmentin on 07/10/24. She will see Podiatry in f/u. Status at Discharge Functional status at discharge: independent ambulation Overall status at discharge: patient is progressing back to baseline Time Spent with Patient Time attestation: Total time spent providing and/or coordinating discharge services: Time spent: Greater than 30 minutes Specific discharge activities: Medication reconciliation, wound care, patient education Exam Narrative: Exam Narrative: GEN: Alert and oriented, nontoxic HEENT: EOMIs bilaterally, no scleral icterus CV: RRR, No concerning murmurs R: LCTA bilaterally Ext: R 4th toe has toenail removed, no concerning drainage, erythema and edema of toe have improved Skin: No other concerning skin lesions or rashes on exposed skin Neuro: Nonfocal Psych: Appropriate Const: Vital Signs, click to edit/add: Vital Signs - 24 hr 07/09/24 13:16 07/09/24 15:00 07/09/24 15:00 Temperature 97.8 F 97.7 F Pulse Rate [Left] 71 65 65 Respiratory Rate 18 16 16 Blood Pressure [Le ft Arm] 138/65 139/71 Pulse Oximetry 96 93 Oxygen Delivery Me thod Room Air Room Air 07/09/24 19:00 07/09/24 23:00 07/10/24 02:02 Temperature 98.2 F 98 F 97.6 F Pulse Rate [Left] 63 60 59 L Respiratory Rate 16 16 16 Blood Pressure [Le ft Arm] 126/58 L 148/79 H 122/68 Pulse Oximetry 96 95 94 Oxygen Delivery Me thod Room Air Room Air CPAP DS: Data Data Completed and Pending Labs on day of discharge: Labs from last 24 hours 07/10/24 06:00 WBC 7.80 RBC 4.32 Hgb 13.1 Hct 41.2 MCV 95 MCH 30 MCHC 32 RDW Coeff of Calli 13.3 Plt Count 275 Neut % (Auto) 51.7 Lymph % (Auto) 28.2 [place] % (Auto) 10.0 Eos % (Auto) 9.0 H Baso % (Auto) 0.6 Neut # (Auto) 4.03 Lymph # (Auto) 2.20 [place] # (Auto) 0.80 Eos # (Auto) 0.70 H Baso # (Auto) 0.05 Abs Immat Gran (auto) 0.04 Imm/Tot Granulo (auto) 0.5 Sodium 141 Potassium 4.1 Chloride 107 Carbon Dioxide 24 Anion Gap 10 BUN 20 Creatinine 0.9 Estimated Creat Clear 34.30 Estimated GFR 64 Glucose 162 H Calcium 9.4 Preliminary micro results at discharge 07/08/24 06:21 Blood Culture - Preliminary Blood NO GROWTH AFTER 48 HOURS Discharge Plan Discharge Disposition: Home, Self-Care Date of Admission: 07/08/24 09:28 Attending Provider on Discharge: Donna Shrestha Primary Care Provider: Maria Antonia Garner Condition: Improved Anticipated Discharge Date/Time: 07/10/24 08:19 Discharge Medications: New amoxicillin-pot clavulanate 875-125 mg tablet 1 tab PO Q12H Qty: 10 0RF Continued docusate sodium [Dulcolax Stool Softener (dss)] 100 mg capsule 200 mg PO BID cholecalciferol (vitamin D3) 25 mcg (1,000 unit) capsule 50 mcg PO DAILY ascorbic acid (vitamin C) 500 mg tablet 500 mg PO DAILY amlodipine 2.5 mg tablet 2.5 mg PO DAILY@1800 rosuvastatin 5 mg tablet 5 mg PO DAILY@1800 calcium carbonate [Oyster Shell Calcium] 500 mg calcium (1,250 mg) tablet 500 mg PO DAILY turmeric 400 mg capsule 400 mg PO DAILY metformin 500 mg tablet 500 mg PO BIDWM Discharge Orders: Discharge Order (Routine); Ordered 07/10/24 Ordered By: Donna Shrestha Patient Education: Amoxicillin (By mouth), Cellulitis (GEN) Additional Instructions: Antibiotics at [facility] (start them tonight). While you're there, brass pickler probiotics (a good option is the Formisimo's brand ULTRA probiotic, take this with meals). Tylenol as needed for pain. See Dr. Aranda as scheduled for a followup. Soak the toe once/day and try to not be on your feet too much! Activity Level: No strenuous activity Discharge Diet: Regular Follow Up Appointments: Maria Antonia Garner MD [Primary Care Provider] - Devin Aranda DPM [Staff Physician] - 07/18/24 1:00 pm ([facility] for follow-up.) [facility] Inst[facility]
[2024-07-10] MEDS: ACETAMINOPHEN 325 MG TABLET 975 MG PO (08:25)
--- NOTE | 2024-07-10 11:45 | PC.NURSE ---
discharge. pt has been very pleasant/. Pt AxOx4. VSS, She reported 1-2/10 pain in right toe that was relieved with Tylenol. pt's Right toe reddened edematous and warm to touch. R foot soaked and dressing changed. she is eating, drinking and voiding with no problems.up ab adelia. . Pt appears resting with call light in reach. went over discharge packet with pt and spouse. went over meds x2. appointment, education and instructions. pt went over and signed personal belong sheet and my health sheet. SL was d/c intact. she got a w/c ride to her truck and was helped in to truck
== END 2024-07-10 11:15 | disposition home or self-care (01) | DRG 639 ==
LOC: ED 07:09 → MEDSURG 08:31
PROVIDERS: Admitting Provider Family Medicine; Emergency Provider Family Medicine; PCP Family Medicine; Visit Provider Family Medicine
DX: E11.628 Type 2 diabetes mellitus with other skin complications (principal); L03.031 Cellulitis of right toe; E11.40 Type 2 diabetes mellitus with diabetic neuropathy, unspecified; E11.65 Type 2 diabetes mellitus with hyperglycemia; Z79.84 Long term (current) use of oral hypoglycemic drugs; G47.33 Obstructive sleep apnea (adult) (pediatric); I10 Essential (primary) hypertension; I34.0 Nonrheumatic mitral (valve) insufficiency; E55.9 Vitamin D deficiency, unspecified; L40.9 Psoriasis, unspecified; N39.46 Mixed incontinence; Z96.651 Presence of right artificial knee joint
CPT/HCPCS: 36415; 51798; 73660; 80048; 82962; 85025; 86140; 87040; 99284; A9270; J2543; J3372

== ENCOUNTER 2024-09-07 15:26 | Outpatient (CLI) | payer MEDICARE, SELFPAY | END 2024-09-07 15:27 | disposition home or self-care (01) | PROVIDERS: PCP Family Medicine; Visit Provider Family Medicine | DX: E55.9 Vitamin D deficiency, unspecified (principal); I10 Essential (primary) hypertension; E11.65 Type 2 diabetes mellitus with hyperglycemia; Z79.84 Long term (current) use of oral hypoglycemic drugs; Z13.21 Encounter for screening for nutritional disorder | CPT/HCPCS: 80053; 82043; 82306; 82570; 82607 ==

== ENCOUNTER 2024-11-29 12:04 | Outpatient (CLI) | payer MEDICARE, SELFPAY | END 2024-11-29 12:05 | disposition home or self-care (01) | LOC: NFLDREF 12-02 08:11 | PROVIDERS: PCP Family Medicine; Referring Provider Family Medicine; Visit Provider Family Medicine | DX: B35.1 Tinea unguium (principal); N39.46 Mixed incontinence | CPT/HCPCS: 87086 ==

== ENCOUNTER 2024-12-03 09:09 | Outpatient (CLI) | payer MEDICARE, SELFPAY | END 2024-12-03 09:10 | disposition home or self-care (01) | LOC: NFLDREF 12-04 21:50 | PROVIDERS: PCP Family Medicine; Referring Provider Family Medicine; Visit Provider Physician Assistant Medical | DX: L50.9 Urticaria, unspecified (principal); N39.0 Urinary tract infection, site not specified; R21 Rash and other nonspecific skin eruption | CPT/HCPCS: 87086 ==

== ENCOUNTER 2024-12-04 12:54 | Emergency (ER) | payer MEDICARE, SELFPAY ==
--- OUTSIDE RECORDS SUMMARY | 2024-12-04 12:56 | XMS_ITS | Clinical Summary ---
Author Organization [facility] Address [address] [place] [address] Care Team Providers Care Railroad Car Cleaner Name Role Phone Maria Antonia Garner MD Primary Care Provider [phone] Sandeep Tom PA-C Unavailable [phone] Allergies Active Allergy Reactions Criticality Noted Date Comments Codeine Nausea and Vomiting 09/20/2024 Sulfa Antibiotics Swelling Medium 10/21/2004 Medications amLODIPine (NORVASC) 2.5 MG tablet Take 1 tablet by mouth daily. 4 Active vitamin C (ASCORBIC ACID) 500 MG tablet Take 500 mg by mouth. 4 Active CALCIUM PO Take 500 mg by mouth. Active Vitamin D3 50 mcg (2000 units) tablet Take 2,000 Units by mouth daily. Active docusate sodium (DSS) 100 MG capsule Take 100 mg by mouth. Active metFORMIN (GLUCOPHAGE) 500 MG tablet Take 1 tablet by mouth 2 times daily. Active nitroGLYcerin (NITROSTAT) 0.[address] 0.4 mg under the tongue. 3 Active rosuvastatin (CRESTOR) 5 MG tablet Take 1 tablet by mouth at bedtime. 3 Active Turmeric 500 MG CAPS Take 1,500 mg by mouth. Active clobetasol (TEMOVATE) 0.05 % GEL topical gel Apply topically 2 times daily. Active Active Problems Problem Noted Date Diagnosed Date ELVIRA (obstructive sleep apnea) 09/20/2024 Mitral regurgitation 09/20/2024 Type 2 diabetes mellitus 07/04/2017 Overview (09/20/2024): metformin Essential hypertension, benign 04/13/2017 Overview (09/20/2024): controlled by medication Dyslipidemia 03/01/2014 Encounters Date Type Department Care Team Description 09/20/2024 2:00 PM TELEPHONE DIRECTORY DISTRIBUTOR DRIVER Office Visit [address] [phone] Sandeep Tom PA-C ELVIRA (obstructive sleep apnea) (Primary Dx) 09/20/2024 Travel from Last 3 Months Family History Medical History Relation Comments Sleep Apnea Brother Relation Status Comments Brother Social History Tobacco Use Types Packs/Day Years Used Date Smoking Tobacco: Never Smokeless Tobacco: Never Tobacco Cessation:Counseling Given: Not Answered Alcohol Use Standard Drinks/Week Comments Not Currently 0 (1 standard drink = 0.6 oz pur e alcohol) PHQ-2 Answer Date Recorded PHQ-2 Score 0 09/20/2024 Comments Unknown Sex and Gender Information Value Date Recorded Sex Assigned at Not on file Legal Sex Female 2:51 PM CDT Gender Identity Not on file Sexual Orientation Not on file Last Filed Vital Signs Vital Sign Reading Time Taken Comments Blood Pressure 138/86 09/20/2024 1:00 PM TELEPHONE DIRECTORY DISTRIBUTOR DRIVER Pulse 75 09/20/2024 1:00 PM TELEPHONE DIRECTORY DISTRIBUTOR DRIVER Temperature - - Respiratory Rate - - Oxygen Saturation 100% 09/20/2024 1:00 PM TELEPHONE DIRECTORY DISTRIBUTOR DRIVER Inhaled Oxygen Concentration - - Weight 81.6 kg (180 lb) 09/20/2024 1:00 PM TELEPHONE DIRECTORY DISTRIBUTOR DRIVER Height 157.5 cm (5' 2) 09/20/2024 1:00 PM TELEPHONE DIRECTORY DISTRIBUTOR DRIVER Body Mass Index 32.92 09/20/2024 1:00 PM TELEPHONE DIRECTORY DISTRIBUTOR DRIVER Plan of Treatment Upcoming Encounters Date Type Department Care Team (Late st Contact Info) Description 08/15/2025 1:30 PM TELEPHONE DIRECTORY DISTRIBUTOR DRIVER Office Visit [address] [phone] Sandeep Tom PA-C [address] [id number] Health Maintenance Due Date Last Done Comments A1C 1941 ADVANCE CARE PLANNING 1941 ANNUAL REVIEW OF HM ORDERS 1941 BMP 1941 DEXA 1941 DIABETIC FOOT EXAM 1941 EYE EXAM 1941 LIPID 1941 MICROALBUMIN 1941 FALL RISK ASSESSMENT 2006 RSV VACCINE (1 - 1-dose 75+ series) 2016 MEDICARE ANNUAL WELLNESS VISIT 08/09/2024 08/09/2023, 08/06/2022, 08/05/2021, Additional history exists COVID-19 Vaccine (2023- season) 2024 05/01/2024, 05/04/2023, 04/19/2022, Additional history exists DTAP/TDAP/TD IMMUNIZATION (3 - Td or Tdap) 05/08/2028 05/08/2018, 05/21/2008 Pneumococcal Vaccine: 50+ Years Completed 05/13/2016, 05/13/2015, 05/21/2008, Additional history exists ZOSTER IMMUNIZATION Completed 02/01/2020, 10/03/2019, 07/23/2019, Additional history exists INFLUENZA VACCINE Completed 05/01/2024, , 04/19/2022, Additional history exists PHQ-2 (once per calendar year) Completed 09/20/2024 HPV IMMUNIZATION Aged Out No longer e ligible based on patient's age to complete this topic MENINGITIS IMMUNIZATION Aged Out No l onger eligible based on patient's age to complete this topic Insurance [facility] MEDICARE ADVANTAGE Care Teams Railroad Car Cleaner Relationship Specialty Start Date End Date Garner, Maria Antonia E, MD [address] [address] PCP - General Family Medicine 09/20/24 Sandeep Tom PA-C [address] [address] Assigned Neuroscience Provider 09/30/24
--- OUTSIDE RECORDS SUMMARY | 2024-12-04 12:56 | XMS_ITS | Clinical Summary ---
Author Organization [facility] Address [address] [place] [address] Care Team Providers Care Bacon Skinner Name Role Phone Shahzad Temple Primary Care Provider Allergies Active Allergy Reactions Criticality Noted Date Comments Codeine 12/07/2010 Hydrocodone-Acetaminoph en Nausea And Vomiting 01/07/2010 vicodin Plain Tylenol ok to take without problem Levofloxacin Myalgia,Nausea And Vomiting,*Unknown,Ot her - Describe In Comment Field High 12/17/2010 Other reaction(s): Myalgias Myalgias Myalgias Propoxyphene-Acetaminop hen Nausea And Vomiting 11/10/2005 Sulfa (Sulfonamide Antibiotics) 12/07/2010 Medications simvastatin (ZOCOR) 10 mg tablet Take 1 tablet by mouth at bedtime. 0 12/07/2010 Active amLODIPine (NORVASC) 2.5 mg tablet Take 1 Tablet by mouth once daily. 01/03/2024 Active metFORMIN (GLUCOPHAGE) 500 mg tablet Take 1 Tablet by mouth two times daily. Active rosuvastatin (CRESTOR) 5 mg tablet Take 1 Tablet by mouth at bedtime. 06/07/2023 Active Active Problems Problem Noted Date Diagnosed Date Hyperlipidemia 12/07/2010 Encounters Date Type Department Care Team Description 11/29/2024 [facility]phone [facility] [address] [facility] [address] [place], [place] [phone] Que Ansari MD NEEDS TO CHANGE SURGERY DATE 11/19/2024 Transcribe Orders [facility] [address] [place] [address] Que Ansari MD 11/08/2024 8:00 AM CDT Office Visit [facility] [address] [place] [address] Que Ansari MD Recheck (left hand numbness) 11/08/2024 Travel 10/11/2024 Telephone [facility] [address] [place] [address] Que Ansari MD Follow Up (Shot) 10/05/2024 1:30 PM BARKER OPERATOR Office Visit [facility] [address] [place] [address] Vinicio Monge MD Follow Up (Urinary retention) 10/05/2024 Travel 10/04/2024 11:40 AM BARKER OPERATOR Procedure Only [facility] [address] [place] [address] Kenroy Del Rosario MD Procedure (Carpal tunnel syndrome on left) 10/03/2024 Travel 09/28/2024 Telephone [facility] [address] [place] [address] Que Ansari MD Imaging (EMG RESULTS ) 09/27/2024 Orders Only [facility] Scanner 1 scan: (1-Ord) [facility] 09/06/2024 1:00 PM BARKER OPERATOR Office Visit [facility] [address] [place] [address] Que Ansari MD Hand Pain/problem (left hand pain) 09/05/2024 Travel from Last 3 Months Family History Medical History Relation Name Comments Sleep apnea Brother Coronary artery disease Father Diabetes Father Heart failure Father Hypertension Father Cancer-colon Maternal Grandfather Hyperlipidemia Mother Hypertension Mother Thyroid cancer Mother Vaginal cancer Mother Stomach cancer Other Relation Name Status Comments Brother Father Maternal Grandfather Mother Other Social History Tobacco Use Types Packs/Day Years Used Date Smoking Tobacco: Never Smokeless Tobacco: Never Alcohol Use Standard Drinks/Week Comments Never 0 (1 standard drink = 0.6 oz pur e alcohol) Comments No Sex and Gender Information Value Date Recorded Sex Assigned at Not on file Legal Sex Female 8:06 AM BARKER OPERATOR Gender Identity Not on file Sexual Orientation Not on file Obstetrics History Last Filed Vital Signs Vital Sign Reading Time Taken Comments Blood Pressure 148/84 07/18/2024 8:21 AM BARKER OPERATOR Pulse 60 10/05/2024 1:37 PM BARKER OPERATOR Temperature 37.3 C (99.1 F) 12/07/2010 12:01 PM CDT Respiratory Rate 16 06/18/2024 2:01 PM BARKER OPERATOR Oxygen Saturation 100% 10/05/2024 1:37 PM BARKER OPERATOR Inhaled Oxygen Concentration - - Weight 82.1 kg (181 lb) 10/05/2024 1:37 PM BARKER OPERATOR Height - - Body Mass Index - - Plan of Treatment Upcoming Encounters Date Type Department Care Team (Late st Contact Info) Description 12/05/2024 1:00 PM CDT Ancillary Procedure [facility] [address] [place] [address] 01/17/2025 1:30 PM CDT Office Visit [facility] [id number] [place] [address] [address] [place] [address] Naheed Burr PA [address] [facility] [address] [place] [address] Scheduled Procedures Name Priority Associated Diagnoses Date/Ti me SURGICAL PROCEDURE (TYPE PRO CEDURE DESCRIPTION BELOW) Elective Carpal tunnel syndrome on left Cubital tunnel syndrome, left Health Maintenance Due Date Last Done Comments Tdap 1952 Depression screening for age 12+ 1953 BMI (ht and wt on same day) for age 18+ 11/08/1959 Tetanus booster 1961 Pneumococcal series for age 50+ (1 of 1 - PCV) 11/08/1991 Zoster (shingles) series for age 50+ (1 of 2) 11/08/1991 DEXA/DXA scan for age 65+ 2006 Medicare Wellness for age 65+ 2006 RSV vaccine for adults or (1 - 1-dose 75+ series) 2016 COVID-19 vaccine series ( season) 2024 05/01/2024, 04/19/2022, 04/19/2022, Additional history exists Influenza Vaccine (Season Ended) 2025 Procedures Procedure Name Priority Date/Time Associated Diagnosis Comments SCAN-DIAGNOSTIC REPORT 10/05/2024 12:00 AM BARKER OPERATOR SCAN-ELECTROMYOGRAM EMG 09/27/2024 12:00 AM BARKER OPERATOR from Last 3 Months Results * SCAN-DIAGNOSTIC REPORT (10/05/2024 12:00 AM BARKER OPERATOR) us Scanner OTHER Final Result * SCAN-ELECTROMYOGRAM EMG (09/27/2024 12:00 AM BARKER OPERATOR) us Scanner OTHER Final Result from Last 3 Months Insurance [employer] MEDICARE ADVANTAGE MR Care Teams Bacon Skinner Relationship Specialty [place] [address] [place] [address] PCP - General Family Practice 12/07/10
--- OUTSIDE RECORDS SUMMARY | 2024-12-04 12:57 | XMS_ITS | Encounter Summary ---
Author Organization [facility] Address [address] [place] [address]. [place] [address] Care Team Providers Care Reclamation Worker Name Role Phone Maria Antonia Garner MD Primary Care Provider [phone] Sandeep Tom PA-C Unavailable [phone] Reason for Visit * Reason Comments Sleep Problem CPAP Annual Encounter Details Date Type Department Care Team (Late st Contact Info) Description 09/20/2024 2:00 PM INVENTORY MANAGER Office Visit [facility] [address] [phone] Sandeep Tom PA-C [address] [address] ELVIRA (obstructive sleep apnea) (Primary Dx) Social History Tobacco Use Types Packs/Day Years [...] on file Sexual Orientation Not on file documented as of this encounter Last Filed Vital Signs Vital Sign Reading Time Taken Comments Blood Pressure 138/86 09/20/2024 1:00 PM INVENTORY MANAGER Pulse 75 09/20/2024 1:00 PM INVENTORY MANAGER Temperature - - Respiratory Rate - - Oxygen Saturation 100% 09/20/2024 1:00 PM INVENTORY MANAGER Inhaled Oxygen Concentration - - Weight 81.6 kg (180 lb) 09/20/2024 1:00 PM INVENTORY MANAGER Height 157.5 cm (5' 2) 09/20/2024 1:00 PM INVENTORY MANAGER Body Mass Index 32.92 09/20/2024 1:00 PM INVENTORY MANAGER documented in this encounter Progress Notes * Sandeep Tom PA-C - 09/20/2024 2:00 PM CST Images from the original note were not included. Outpatient Sleep Medicine Consultation: Name: Emma Yang Age: [age] year old Date of : 1940 Date of Consultation: September 19, 2024 Consultation is requested by: No referring provider defined for this encounter. No ref. provider found Primary care provider: No Ref-Primary, Physician Reason for Sleep Consult: Emma Yang is sent by No ref. provider found for a sleep consultation regarding ELVIRA. Patient???s Reason for visit Emma Yang main reason for visit: Patient states problem(s) started: Emma Yang's goals for this visit: Assessment and Plan: Summary Sleep Diagnoses and Recommendations: (G47.33) ELVIRA (obstructive sleep apnea) (primary encounter diagnosis) Comment: Emma presents to establish care for moderate ELVIRA initially diagnosed in 2011 in [place]. She did not tolerate CPAP on 2 titration attempts. She was placed on auto BiPAP with very low settings. She likes the BiPAP and has no trouble using it. Her download shows nightly use and well-co ntrolled apnea. She definitely benefits from use. Her weight is essentially unchanged since her sleep study in 2011. She has no concerns about her sleep quality or daytime energy. Plan: Comprehensive DME Continue auto BiPAP EPAP min 4 cm, IPAP max 20 cm, PS 4 cm. A prescription was written for new supplies. We reviewed recommendations for cleaning and replacing supplies. Comorbid Diagnoses: HTN, DM 2, mitral regurgitation Summary Counseling: Sleep Testing Reviewed Obstructive Sleep Apnea Reviewed Complications of Untreated Sleep Apnea Reviewed Patient will follow up in 1 year. Sandeep Tom PA-C Total time spent reviewing medical records, history and physical examination, review of previous testing and interpretation as well as documentation on this date:53 min CC: No ref. provider found History of Present Illness: Emma Yang presents to establish care for previously diagnosed moderate ELVIRA. She is on an auto BiPAP with min EPAP 4 cm, max IPAP 20 cm, PS 4 cm. It appears she was put on BiPAP due to intolerance to CPAP. She likes the BiPAP. She has a Dreamwear nasal mask. She is comfortable with the pressures. She is not aware of mask leak. She does not snore with the BiPAP. No dry nose or mouth. The water chamber does not run out. She was getting new parts about monthly. She cleans the cushion daily and everything else every 2 weeks. Former DME was [facility]. Her sleep study documentation lists symptoms of unrefreshing sleep and daytime tiredness. She does not really remember as it was 13 years ago. The compliance data shows that the patient used the BiPAP for 30/30 nights, 100% of nights for >4 hours. The 95th% pressure is 8.7/4.7 cm. The 95th% leak is 6.9 lpm. The average nightly usage is 7:28. The average AHI is 0.1/hr. Past Sleep Evaluations: 07/15/2012 in [place]. AHI 21.3/hr. REM AHI 63.2/hr. O2 quentin 74%. She struggled to sleep with CPAPthat night. Wt: 182#. Titration PSG 05/18/2016: She again had some difficulty sleeping (222 minutes of sleep, sleep efficiency 63%). At 8 cm, she had nREM lateral, her AHI was 4.4/hr, but this was not effective supine. Wt: 187#. SLEEP-WAKE SCHEDULE: Work/School Days: Patient goes to school/work: Usually gets into bed at 11 PM Takes patient about 2 min to fall asleep Has trouble falling asleep 0 nights per week Wakes up in the middle of the night 0 times. Wakes up due to She has trouble falling back asleep n/a times a week. It usually takes to get back to sleep Patient is usually up at 7 AM Uses alarm: no Weekends/Non-work Days/All Other Days: Same on all days Sleep Need Patient gets 7-8 hours sleep on average Patient thinks she needs about 7-8 hours sleep Emma Yang prefers to sleep in this position(s): starts on side, ends up on back Patient states they do the following activities in bed: no TV or electronics Naps Patient takes a purposeful nap 3-4 times a week and naps are usually 30 min in duration She feels better after a nap: yes She dozes off unintentionally 0 days per week Patient has had a driving accident or near-miss due to sleepiness/drowsiness: no SLEEP DISRUPTIONS: Breathing/Snoring Patient snores: not with CPAP Other people complain about her snoring: no Patient has been told she stops breathing in her sleep: not with CPAP She has issues with the following: . Morning headaches: no. Nocturnal heartburn or reflux: no. Nasal congestion at night: no. Movement: Patient gets pain, discomfort, with an urge to move: No restless legs symptoms It happens when she is resting: It happens more at night: Patient has been told she kicks her legs at night: no Behaviors in Sleep: Emma Yang has experienced the following behaviors while sleeping: Pt denies bruxism, sleep talking, sleep walking, and dream enactment behavior. Pt denies sleep paralysis, hypnagogue and cataplexy. Is there anything else you would like your sleep provider to know: CAFFEINE AND OTHER SUBSTANCES: Patient consumes caffeinated beverages per day: 2 cups coffee Last caffeine use is usually: mid afternoon List of any prescribed or over the counter stimulants that patient takes: none List of any prescribed or over the counter sleep medication patient takes: none List of previous sleep medications that patient has tried: none Patient drinks alcohol to help them sleep: no Patient drinks alcohol near bedtime: no Family History: Patient has a family member been diagnosed with a sleep disorder: Brother had ELVIRA Social History: She met her at the [employer] they both worked at. 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 After that, she went back to school and worked in [employer]. SCALES: EPWORTH SLEEPINESS SCALE 09/20/2024 2:00 PM [place] Sleepiness Scale ( Evonne Weiss [id number]
ESS - [place] - Final version - Jun 14 - [facility] [place].) [place] Score (Sleep) 2 INSOMNIA SEVERITY INDEX (TOÑO) ?? 09/20/2024 2:00 PM Insomnia Severity Index (TOÑO) Difficulty falling asleep 0 Difficulty staying asleep 0 Problems waking up too early 0 How SATISFIED/DISSATISFIED are you with your CURRENT sleep pattern? 0 How NOTICEABLE to others do you think your sleep problem is in terms of impairing the quality of your life? 0 How WORRIED/DISTRESSED are you about your current sleep problem? 0 To what extent do you consider your sleep problem to INTERFERE with your daily functioning (e.g. daytime fatigue, mood, ability to function at work/daily chores, concentration, memory, mood, etc.) CURRENTLY? 0 TOÑO Total Score 0 Guidelines for Scoring/Interpretation: Total score categories: 0-7 = No clinically significant insomnia 8-14 = Subthreshold insomnia 15-21 = Clinical insomnia (moderate severity) 22-28 = Clinical insomnia (severe) Used via courtesy of www.Creditableth.ar.gov with permission from Luis Eduardo Clark PhD., [employer] [employer] STOP BANG 09/20/2024 1:00 PM STOP BANG Questionnaire (?? 2008, the [place] [employer], [employer] Neck Cir (cm) Clinic: 38 cm B/P Clinic: 138/86 BMI Clinic: 32.92 GAD7 No data to display CAGE-AID No data to display CAGE-AID reprinted with permission from the [place] Medical Journal, Neida Harris and STEPHANI Jolley, Conjoint screening questionnaires for alcohol and drug abuse [place] Medical Journal 94: 135-140, 1994. PATIENT HEALTH QUESTIONNAIRE-9 (PHQ - 9) No data to display Developed by Drs. Jozef Mendoza, Lucinda Baltazar, Washington Ho and colleagues, with an educational mazin from [employer] No permission required to reproduce, translate, display or distribute. Allergies: Allergies Allergen Reactions Sulfa Antibiotics Swelling Codeine Nausea and Vomiting Medications: Current Outpatient Medications Medication Sig Dispense Refill amLODIPine (NORVASC) 2.5 MG tablet Take 1 tablet by mouth daily. CALCIUM PO Take 500 mg by mouth. clobetasol (TEMOVATE) 0.05 % GEL topical gel Apply topically 2 times daily. docusate sodium (DSS) 100 MG capsule Take 100 mg by mouth. metFORMIN (GLUCOPHAGE) 500 MG tablet Take 1 tablet by mouth 2 times daily. nitroGLYcerin (NITROSTAT) 0.[address] 0.4 mg under the tongue. rosuvastatin (CRESTOR) 5 MG tablet Take 1 tablet by mouth at bedtime. Turmeric 500 MG CAPS Take 1,500 mg by mouth. vitamin C (ASCORBIC ACID) 500 MG tablet Take 500 mg by mouth. Vitamin D3 50 mcg (2000 units) tablet Take 2,000 Units by mouth daily. Problem List: There are no active problems to display for this patient. Past Medical/Surgical History: History reviewed. No pertinent past medical history. Past Surgical History: Procedure Laterality Date BACK SURGERY 12/2000 lumbar diskectomy CATARACT EXTRACTION Bilateral 05/25/2018 CHOLECYSTECTOMY HYSTERECTOMY 06/03/1992 ORTHOPEDIC SURGERY both hips, both shoulders, right knee RELEASE CARPAL TUNNEL Bilateral twice on left TONSILLECTOMY Social History: Social History Socioeconomic History Marital status: Spouse name: Not on file Number of children: Not on file Years of education: Not on file Highest education level: Not on file Occupational History Not on file Tobacco Use Smoking status: Never Smokeless tobacco: Never Substance and Sexual Activity Alcohol use: Not Currently Drug use: Not Currently Sexual activity: Not on file Other Topics Concern Not on file Social History Narrative Not on file Social Drivers of Health Financial Resource Strain: Not on file Food Insecurity: Low Risk (06/16/2022) Received from [facility] Food Insecurity Have there been times that your food ran out, and you didn't have money to get more?: No Are there times that you worry that this might happen?: No Transportation Needs: Low Risk (06/16/2022) Received from [facility] Transportation Needs Do you have trouble getting transportation to medical appointments?: No How do you normally get to and from your appointments?: Not on file Physical Activity: Not on file Stress: Not on file Social Connections: Not on file Interpersonal Safety: Not on file Housing Stability: Low Risk (06/16/2022) Received from [facility] Housing Stability Are you concerned about having a safe and reliable place to live?: No Family History: Family History Problem Relation Age of Onset Sleep Apnea Brother Review of Systems: A complete review of systems reviewed by me is negative with the exeption of what has been mentioned in the history of present illness. Positive for night sweats Physical Examination: Vitals: BP 138/86 Pulse 75 Ht 1.575 m (5' 2) Wt 81.6 kg (180 lb) SpO2 100% BMI 32.92 kg/m?? BMI= Body mass index is 32.92 kg/m??. Neck Cir (cm): 38 cm GENERAL APPEARANCE: healthy, alert, no distress, and cooperative EYES: Eyes grossly normal to inspection, PERRL, conjunctivae and sclerae normal, and lids and lashes normal HENT: oropharynx small and crowded and tongue base enlarged NECK: no adenopathy, no asymmetry, masses, or scars, thyroid normal to palpation, and trachea midline and normal to palpation RESP: lungs clear to auscultation - no rales, rhonchi or wheezes CV: regular rates and rhythm, no murmur, click or rub, and no irregular beats LYMPHATICS: no cervical adenopathy MS: varicose veins NEURO: Normal strength and tone, mentation intact, and speech normal Mallampati Class: IV. Tonsillar Stage: 0 surgically removed. Data: All pertinent previous laboratory data reviewed No results for input(s): NA, POTASSIUM, CHLORIDE, CO2, ANIONGAP, GLC, BUN, CR, JOHNATHAN in the last 21886 hours. No results for input(s): WBC, RBC, HGB, HCT, MCV, MCH, MCHC, RDW, PLT in the etmm12831 hours. No results for input(s): PROTTOTAL, ALBUMIN, BILITOTAL, ALKPHOS, AST, ALT, BILIDIRECTin the last 67581 hours. No results found for: TSH No results found for: UAMP, UBARB, BENZODIAZEUR, UCANN, UCOC, OPIT, UPCP No results found for: IRONSAT, [id number], ABDOUL No results found for: PH, PHARTERIAL, PO2, [id number], SAT, PCO2, HCO3, BASEEXCESS, BLANCA, BEB @LABRCNTIPR(phv:4,pco2v:4,po2v:4,hco3v:4,dash:4,o2per:4)@ Echocardiology: No results found for this or any previous visit (from the past 4320 hours). Chest x-ray: No results found for this or any previous visit from the past [address]: No results found for this or any previous visit from the past 365 days. PFT: [facility] No results found for: Sandeep Tom PA-C, LINDSEY 09/19/2024 NTORY MANAGER documented in this encounter Nursing Notes * Damaso Cuenca - 09/20/2024 2:00 PM CST Chief Complaint Patient presents with Sleep Problem CPAP Annual Initial BP 138/86 Pulse 70 Ht 1.575 m (5' 2) Wt 81.6 kg (180 lb) SpO2 100% BMI 32.92 kg/m?? Estimated body mass index is 32.92 kg/m?? as calculated from the following: Height as of this encounter: 1.575 m (5' 2). Weight as of this encounter: 81.6 kg (180 lb). Medication Reconciliation: complete Neck circumference: 15 inches / 38 centimeters. DME: [facility] NTORY MANAGER documented in this encounter Plan of Treatment Upcoming Encounters Date Type Department Care Team (Late st Contact Info) Description 08/15/2025 1:30 PM INVENTORY MANAGER Office Visit [facility] [id number] [place] [phone] Sandeep Tom PA-C [address] [place], [place] [id number] documented as of this encounter Visit Diagnoses Diagnosis ELVIRA (obstructive sleep apnea)- Primary Obstructive sleep apnea (adult) (pediatric) documented in this encounter Care Teams Reclamation Worker Relationship Specialty Start Date End Date Maria Antonia Garner MD [address] [address] PCP - General Family Medicine 09/20/24 Sandeep Tom PA-C [address] [place] [address] Assigned Neuroscience Provider 09/30/24 documented as of this encounter
--- OUTSIDE RECORDS SUMMARY | 2024-12-04 12:57 | XMS_ITS | Data Portability ---
Author Organization [facility], [facility] Address [address] [place] [address] Care Team Providers Care Real Estate Attorney Name Role Phone JOHN MATHUR Primary Care Provider Assessment Encounter Date Assessment Date Assessment LastModified by Organization Details LastModified Time 05/31/2024 05/31/2024 83-year-old female presents for bladder Botox [email or web address] Not available 05/31/2024 16:29:10 Plan of Treatment Reminders Order Date Submit Date Provider Last Modified By Organization Details Last Modified Time Details Appointments None recorded. Lab urinalysis, dipstick 2023 [facility], [address], [address], [place], [address], 4 10:37:40 urinalysis, microscopic 2023 [facility], [address], [address], [place], [address], 5 05:01:04 urinalysis, dipstick 2023 024 [facility], [address], [address], [place], [address], 4 12:41:53 urinalysis, microscopic 2023 024 [facility], [address], [place], [place], [address], 5 05:01:40 culture, urine 2023 024 [facility]DRO [facility], [address] [facility] [address], [address], [place], [address], 4 10:21:48 Referral None recorded. Procedures None recorded. Surgeries None recorded. Imaging None recorded. Medication Orders None recorded. Patient TargetsNo targets recorded. Patient Instructions Encounter Date Encounter Id Patient Instructions Last Modified By Organization Details Last Modified Time 05/31/2024 [id number] 83-year-old female presents for bladder Botox. Botox performed without complication. [email or web address] Not available 05/31/2024 16:29:28 Reason for Referral None Reported. Results Created Date Observation Date Name Description Value Unit Range Abnormal Flag Note LastModifiedBy Organization Detail LastModifiedTime 05/17/2005/17/2024 UA WITHO UT MICRO - CS URISC AN blood - uriscan NEGATI VE negati ve Not Available [facility] [address] [facility] [address], [place], [address], 05/17/2024 12:41:53 05/17/2005/17/2024 UA WITHO UT MICRO - CS URISC AN bilirubin - uriscan NEGATI VE mg/dL negati ve Not Available [facility] [address] [facility] [address], [place], [address], 05/17/2024 12:41:53 05/17/2005/17/2024 UA WITHO UT MICRO - CS URISC AN urobilinogen - uriscan NORMAL mg/dL normal Not Available [facility] [address] [facility] [address], [place], [address], 05/17/2024 12:41:53 05/17/2005/17/2024 UA WITHO UT MICRO - CS URISC AN ketones - uriscan NEGATI VE mg/dL negati ve Not Available [facility] [address] [facility] [address], [place], [address], 05/17/2024 12:41:53 05/17/2005/17/2024 UA WITHO UT MICRO - CS URISC AN protein - uriscan NEGATI VE mg/dL negati ve Not Available [facility] [address] [facility] [address], [place], [address], 05/17/2024 12:41:53 05/17/2005/17/2024 UA WITHO UT MICRO - CS URISC AN nitrites - uriscan NEGATI VE negati ve Not Available [facility] [address] [facility] [address], [place], [address], 05/17/2024 12:41:53 05/17/2005/17/2024 UA WITHO UT MICRO - CS URISC AN glucose - uriscan NEGATI VE mg/dL negati ve Not Available [facility] [address] [facility] [address], [place], [address], 05/17/2024 12:41:53 05/17/2005/17/2024 UA WITHO UT MICRO - CS URISC AN pH - uriscan 5.00 5.00-9 .00 Not Available [facility] [address] [facility] [address], [place], [address], 05/17/2024 12:41:53 05/17/2005/17/2024 UA WITHO UT MICRO - CS URISC AN sp. gravity - uriscan <=1.01 1.01-1 .03 Not Available [facility] [address] [facility] [address], [place], [address], 05/17/2024 12:41:53 05/17/2005/17/2024 UA WITHO UT MICRO - CS URISC AN leukocytes - uriscan NEGATI VE negati ve Not Available [facility] [address] [facility] [address], [place], [address], 05/17/2024 12:41:53 05/17/2005/17/2024 UA WITHO UT MICRO - CS URISC AN color - uriscan YELLOW lt. yellow ;yello w Not Available [facility] [address] [facility] [address], [place], [address], 05/17/2024 12:41:53 05/17/20 24 05/17/2024 UA WITHO UT MICRO - CS URISC AN clarity - uriscan CLEAR clear Not Available [facility] [address] [facility] [address], [place], [address], 05/17/2024 12:41:53 05/17/20 24 05/17/2024 UA WITHO [...] for provi yelena revie w. Not Available [facility] [address] [facility] [address], [place], [address], 05/17/2024 12:41:53 05/17/20 24 05/17/2024 URINE CULTU RE final report MICROB IOLOGY RESULT S abnormal SOURC E Void KNOWN ALLER BRIJESH NKDA TREAT MENT none MEDIA PLATE D AT: Media plate d on 05/17 @ 12:19 PM COLON Y COUNT >100, 000 cfu/m l RESUL T Esche matthew a coli (Isol ate 1) Sensi tivit y Christianne sis Partridge te 1 ----- ----- ----- ----- ----- [...] lila usage of the drugs . Infor matbrando n on doxyc yclin e and minoc yclin e can be found in the Physi karen' s Desk [facility]. S= Susce ptibl e;I= Inter [...] for provi yelena revie w. Not Available [facility] [address] [facility] [address], [place], [address], 05/19/2024 10:21:48 05/31/2005/31/2024 UA WITHO UT MICRO - CS URISC AN blood - uriscan NEGATI VE negati ve Not Available [facility] [address] [place] [address] [address], [place], [address], 05/31/2024 10:37:40 05/31/2005/31/2024 UA WITHO UT MICRO - CS URISC AN bilirubin - uriscan NEGATI VE mg/dL negati ve Not Available [facility] [address] [place] [address] [address], [place], [address], 05/31/2024 10:37:40 05/31/2005/31/2024 UA WITHO UT MICRO - CS URISC AN urobilinogen - uriscan NORMAL mg/dL normal Not Available [facility] [address] [place] [address] [address], [place], [address], 05/31/2024 10:37:40 05/31/2005/31/2024 UA WITHO UT MICRO - CS URISC AN ketones - uriscan NEGATI VE mg/dL negati ve Not Available [facility] [address] [place] [address] [address], [place], [address], 05/31/2024 10:37:40 05/31/2005/31/2024 UA WITHO UT MICRO - CS URISC AN protein - uriscan NEGATI VE mg/dL negati ve Not Available [facility] [address] [place] [address] [address], [place], [address], 05/31/2024 10:37:40 05/31/2005/31/2024 UA WITHO UT MICRO - CS URISC AN nitrites - uriscan NEGATI VE negati ve Not Available [facility] [address] [place] [address] [address], [place], [address], 05/31/2024 10:37:40 05/31/2005/31/2024 UA WITHO UT MICRO - CS URISC AN glucose - uriscan NEGATI VE mg/dL negati ve Not Available [facility] [address] [place] [address] [address], [place], [address], 05/31/2024 10:37:40 05/31/2005/31/2024 UA WITHO UT MICRO - CS URISC AN pH - uriscan 5.00 5.00-9 .00 Not Available [facility] [address] [place] [address] [address], [place], [address], 05/31/2024 10:37:40 05/31/2005/31/2024 UA WITHO UT MICRO - CS URISC AN sp. gravity - uriscan 1.01 1.01-1 .03 Not Available [facility] [address] [place] [address] [address], [place], [address], 05/31/2024 10:37:40 05/31/2005/31/2024 UA WITHO UT MICRO - CS URISC AN leukocytes - uriscan NEGATI VE negati ve Not Available [facility] [address] [place] [address] [address], [place], [address], 05/31/2024 10:37:40 05/31/2005/31/2024 UA WITHO UT MICRO - CS URISC AN color - uriscan YELLOW lt. yellow ;yello w Not Available [facility] [address] [place] [address] [address], [place], [address], 05/31/2024 10:37:40 05/31/2005/31/2024 UA WITHO UT MICRO - CS URISC AN clarity - uriscan CLEAR clear Not Available [facility] [address] [place] [address] [address], [place], [address], 05/31/2024 10:37:40 05/31/2005/31/2024 UA WITHO UT MICRO [...] for provi yelena revie w. Not Available [facility] [address] [facility] [address], [place], [address], 05/31/2024 10:37:40 Result Notes None recorded. Problems Name Problem SNOMED Code Status Onset Date Resolution Date Notes Provider Name and Address Organization Details Recorded Time Overactive urinary bladder 272046133 Active 024 NICLOAS RAMAN MD [address] [facility],[address], [place], [address], [facility] 4 15:30:10 Recurrent urinary tract infection 073138005 Active 024 NICOLAS RAMAN MD [address] [facility],[address] [place] [address], [address], [facility] 4 08:57:56 Urinary tract infectious disease 46413430 Active 024 NICOLAS RAMAN MD [address] [place] [address],[address] [place] [address], [address], [facility] 4 08:58:03 Problem Notes None recorded. Procedures Surgical History Date Name Laterality Status Provider Name and Address Organization Details Recorded Time 4 Cystoscopy with Botox Injections completed NICOLAS RAMAN MD [address] [place] [address],[address] [place] [address], [address], [facility] 05/31/2024 16:29:04 4 Urine Culture completed Marybeth Rodriguez [facility] 05/16/2024 17:20:25 4 Urinalysis completed Lilly Shah [facility] 05/17/2024 12:33:20 Imaging Results None recorded. Procedure Notes None recorded. Medical Equipment None Reported. Allergies Allergen ID Allergen Name Allergen Category Reaction Reaction Severity Criticality Documentation Date Start Date Code Code System Note Provider Name and Address Organization Details Recorded Time 447004 levofloxa aaron medicatio n Not available Not available Not available 05/31/2024 89253 RxNorm Not Available Not Available Not Available 172409 codeine medicatio n Not available Not available Not available 05/31/2024 2670 RxNorm Not Available Not Available Not Available 527704 acetamino phen / hydrocodo ne medicatio n Not available Not available Not available 05/31/2024 02638 2 RxNorm Not Available Not Available Not Available 333032 Levaquin medicatio n Not available Not available Not available 05/31/2024 11868 2 RxNorm Not Available Not Available Not Available 746766 propoxyph clara medicatio n Not available Not available Not available 05/31/2024 8785 RxNorm Not Available Not Available Not Available 222092 Substance with sulfonami de structure and antibacte rial mechanism of action (substanc e) medicatio n Not available Not available Not available 05/31/2024 68682 8003 SNOMED Not Available Not Available Not Available Medications Name Sig Start Date Stop Date [...] Updated DateTime 05/31/2024 157.48 cm 32.4 kg/m2 92968.85 g Iliana Nath [facility] 05/31/2024 10:25:02 Social History Question Answer Notes LastModified by Organizat ion Details LastModified Time Tobacco Smoking Status Former Smoker Iliana Nath [facility] 05/31/2024 10:26:14 What Is Your [...] Other Forms Of Tobacco Or Nicotine? No [facility] Information not available 05/31/2024 Sex: Unknown Functional Status None recorded. Mental Status None recorded. Family History Nothing Reported. Medical History Condition Response Sexually Transmitted Infection N Diabetes Y Bleeding Disorder N Other N High Blood Pressure Y Kidney Stones N Cancer N Lung Disease N Depression N High Cholesterol Y GERD/Acid Reflux N Heart Disease N Gynecological HistoryNo gynecological history recorded. Obstetrics History GPAL:G 0 P 0 0 0 0 Immunizations Vaccine Type Date Status Note Provider Nam e and Address Organization Details Recorded Time zoster recombinant 0 completed Iliana Nevills null, [facility] 05/31/2024 10:17:44 [facility]oster recombinant 9 [facility] 10:17:45 SARS-COV-2 (COVID-19) vaccine, UNSPECIFIED 1 completed Iliana Nevills null, [facility] 05/31/2024 10:17:45 SARS-COV-2 (COVID-19) vaccine, UNSPECIFIED 1 completed [facility]24 10:17:45 SARS-COV-2 (COVID-19) vaccine, UNSPECIFIED 2 completed [facility] 05/31/2024 10:17:45 SARS-COV-2 (COVID-19) vaccine, UNSPECIFIED 2 completed Iliana Nevills null, [facility] 05/31/2024 10:17:45 SARS-COV-2 (COVID-19) vaccine, UNSPECIFIED 1 completed Iliana Nevills null, [facility] 05/31/2024 10:17:45 Respiratory syncytial virus (RSV), unspecified 3 completed Iliana Nevills null, [facility] 05/31/2024 10:17:45 COVID-19, mRNA, LNP-S, PF, shadi-sucrose, 30 mcg/0.3 mL 2 completed Iliana Nevills null, [facility] 05/31/2024 10:17:45 COVID-19, mRNA, LNP-S, PF, shadi-sucrose, 30 mcg/0.3 mL 4 completed Iliana Nevills null, [facility] 05/31/2024 10:17:45 COVID-19, mRNA, LNP-S, PF, shadi-sucrose, 30 mcg/0.3 mL 3 completed Iliana Nevills null, [facility] 05/31/2024 10:17:45 pneumococcal polysaccharide PPV23 6 completed Iliana Nevills null, [facility] 05/31/2024 10:17:45 Tdap 8 completed Iliana Nevills null, [facility] 05/31/2024 10:17:45 Tdap 8 completed Iliana Nevills [facility], [facility] 05/31/2024 10:17:45 Pneumococcal conjugate PCV 13 5 completed Iliana Nevills [facility], [facility] 05/31/2024 10:17:45 pneumococcal, unspecified formulation 8 completed Iliana Nevills null, [facility] 05/31/2024 10:17:45 zoster live 9 completed Iliana Nevills [facility] 05/31/2024 10:17:45 Influenza, high-dose, trivalent, PF 4 completed Iliana Nevills null, [facility] 05/31/2024 10:17:45 Past Encounters Encounter ID Performer Location Encounter Start Date Encounter Closed Date Diagnosis/Indication Diagnosis SNOMED-CT Code Diagnosis ICD10 Code Diagnosis Note [id number] Lilly Shah [facility] [address] [address] 05/17/2024 12:23:46 05/17/2024 12:34:14 Overactive urinary bladder 413905674 N32.81 [id number] MD [facility] [address] [address] 05/31/2024 10:07:51 06/01/2024 11:16:44 Urinary tract infectious disease 75207243 N39.0 Overactive urinary bladder 886264325 N32.81 Health Concerns Section Related Observation LastModified by Organization Detai ls LastModified Time None Recorded Concern Status LastModified by Organization Details LastModified Time None Recorded Advance Directives Directive None Recorded Payers Encounter Date Sequence Insurance Name Policy Number Policy West Covered Member ID West Member ID Guarantor Name 05/17/2024 1 [place] [id number] Emma A Sanjayell [id number] Emma A Boutell 05/31/2024 1 [place] [id number] Emma A Sanjayell [id number] Emma A Celia Notes Date Note Type Note Provider Name and Address Organization Details Recorded Time 05/31/2024 text/html 83-year-old female with overactive bladder presents for bladder Botox NICOLAS RAMAN MD [address] [facility],[address], [place], [address], [facility] 05/31/2024 16:31:17 OBGyn Episode No OBEpisode recorded.
--- OUTSIDE RECORDS SUMMARY | 2024-12-04 12:57 | XMS_ITS | Clinical Summary ---
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 Medications Administered No information available. Allergies, Adverse Reactions, Alerts No information available. Results Date Name Value Unit Range Flag Description Internal Other: Authorizatio n AUTHBENEFIT Yes Authoriza tion: Assignment of Benefits and Payment Agreement [email or web address] Yes Authorizat ion: Authorization for [facility] to leave messages, voicemail, send text messages, send emails [email or web address] Yes Authoriz ation: Release/Retrieval of Information to/from Healthcare Facilities, Pharmacy Benefit Payers and Providers ROIAUTHOTHER Yes Authoriz ation: Release of Information - Authorize Others/Insurance - Payment and Healthcare Operations [email or web address] Yes Authoriza tion: Release of Information - Authorize [facility] - Payment and Healthcare Operations AUTHPRIVPRAC Yes Authoriz ation: Notice of privacy practices HIECONSENT Yes Consent To Release information to the Health Information Exchange (HIE) Internal Other: Verbal Autho rization/Emergency Contact VERBAL_EMER Done Verbal au thorization and emergency contact Plan of Care No information available. Procedures Code Procedure Name Date Entry Date CPT-94837 Nerve Conduction 9-10 studies CPT-39360 EMG with NCS (5+ muscles) - 1 limb 09/27 Vital Signs No information available. Immunizations No information available. Advance Directives No information available.
[2024-12-04 13:07] VITALS: BP 138/76; PULSE 83; RESP 16; TEMP 37.2; O2SAT 94; BMI 33.0
--- NOTE | 2024-12-04 13:56 | ED_ITS ---
HPI - Allergic Reaction General Chief complaint: Allergic Reaction Stated complaint: allergic reaction to medication Time Seen by Provider: 12/04/24 13:22 History of Present Illness HPI narrative: This 84-year-old female comes in with her because of generalized hives and itching. These symptoms started after having a vein procedure in both of her legs and receiving a prescription for cephalexin. She did go to her primary physician and received prescription for a steroid pills and cream along with Zyrtec. She has been taking these medicines but feels like her symptoms are worsening. She does not report any shortness of breath or symptoms of angioedema or anaphylaxis. Related Data Home Medications ?Medication ?Instructions ?Recorded ?Confirmed ascorbic acid (vitamin C) 500 mg 500 mg PO DAILY 04/06/24 11/29/24 tablet cholecalciferol (vitamin D3) 25 50 mcg PO DAILY 04/06/24 11/29/24 mcg (1,000 unit) capsule docusate sodium 100 mg capsule 200 mg PO BID 04/06/24 11/29/24 (Dulcolax Stool Softener (docusate)) calcium carbonate (Oyster Shell 500 mg PO DAILY 07/08/24 11/29/24 Calcium) turmeric 400 mg capsule 400 mg PO DAILY 07/08/24 11/29/24 diphenhydramine HCl 25 mg capsule 50 mg PO QHS PRN 12/03/24 12/04/24 (Benadryl) Previous Rx's ?Medication ?Instructions ?Recorded amlodipine 2.5 mg tablet 2.5 mg PO DAILY@1800 #90 tabs 09/07/24 metformin 500 mg tablet,extended 500 mg PO BID #180 tabs 09/07/24 release 24 hr rosuvastatin 5 mg tablet 5 mg PO DAILY@1800 #90 tabs 09/07/24 amoxicillin 875 mg-potassium 1 tab PO BID #10 tabs 12/02/24 clavulanate 125 mg tablet triamcinolone acetonide 0.1 % 1 applic topical BID PRN rash #80 12/02/24 topical cream grams prednisone 20 mg tablet 20 mg PO QDAY 5 days #5 tabs 12/03/24 Allergies Allergy/AdvReac Type Severity Reaction Status Date / Time amoxicillin (From Augmentin) Allergy Intermediate Diarrhea Verified 12/04/24 13:15 cephalexin Allergy Intermediate Rash Verified 12/04/24 13:15 clavulanic acid (From Allergy Intermediate Diarrhea Verified 12/04/24 13:15 Augmentin) codeine Allergy Verified 12/04/24 13:15 hydrocodone Allergy Verified 12/04/24 13:15 propoxyphene Allergy NAUSEA Verified 12/04/24 13:15 VOMITING canagliflozin (From Invokana) AdvReac HIVES AND Verified 12/04/24 13:15 ITCHING levofloxacin (From Levaquin) AdvReac MYALGIAS Verified 12/04/24 13:15 Opioids - Morphine Analogues AdvReac Verified 12/04/24 13:15 oxycodone AdvReac Rash Verified 12/04/24 13:15 Sulfa (Sulfonamide AdvReac swelling Verified 12/04/24 13:15 Antibiotics) dermabond prineo AdvReac rash Uncoded 11/29/24 11:58 Review of Systems Status of ROS Reports: 10 or more systems reviewed and unremarkable except as noted in History and below Narrative Constitutional: No fevers, no weight gain or loss. Eyes: No discharge. No vision changes. HENT: No congestion, no sore throat, no ear pain. Cardiovascular: No chest pain, no palpitations. Respiratory: No shortness of breath, no wheezes, no cough. Gastrointestinal: No abdominal pain, no vomiting, no diarrhea. Genitourinary: No dysuria, no hematuria. Musculoskeletal: Normal range of motion. Skin: Generalized erythematous maculopapular rash which is pruritic. Neurological: No dizziness, weakness, sensory change, speech change. Endo/Heme/Allergies: No bruising or bleeding. No polydipsia. Pysch: no suicidality, no anxiety, no insomnia. All other systems reviewed and are negative. [facility] Medical History (Updated 12/04/24 @ 14:03 by Harris Orellana MD) UTI (urinary tract infection) ?N39.0 - Urinary tract infection, site not specified (ICD-10) Hives ?L50.9 - Urticaria, unspecified (ICD-10) Hx of echocardiogram ?Z92.89 - Personal history of other medical treatment (ICD-10) History of angina ?Z86.79 - Personal history of other diseases of the circulatory system (ICD- 10) Hx of small bowel obstruction ?Z87.19 - Personal history of other diseases of the digestive system (ICD-10) Surgical History (Updated 10/15/24 @ 18:57 by Nas Hernandez MD) H/O total hip arthroplasty ?Z96.649 - Presence of unspecified artificial hip joint (ICD-10) Status post right foot surgery ?Z98.890 - Other specified postprocedural states (ICD-10) History of arthroplasty of right knee ?Z96.651 - Presence of right artificial knee joint (ICD-10) H/O oophorectomy History of carpal tunnel surgery ?Z98.890 - Other specified postprocedural states (ICD-10) H/O vaginal surgery ?Z98.890 - Other specified postprocedural states (ICD-10) H/O discectomy ?Z98.890 - Other specified postprocedural states (ICD-10) Hx of cataract surgery ?Z98.49 - Cataract extraction status, unspecified eye (ICD-10) History of cholecystectomy ?Z90.49 - Acquired absence of other specified parts of digestive tract (ICD- 10) History of colon surgery ?Z98.890 - Other specified postprocedural states (ICD-10) H/O cardiac catheterization ?Z98.890 - Other specified postprocedural states (ICD-10) History of hysterectomy ?Z90.710 - Acquired absence of both cervix and uterus (ICD-10) Hx of shoulder surgery ?Z98.890 - Other specified postprocedural states (ICD-10) Family History (Updated 09/07/24 @ 15:26 by Maria Antonia Garner MD) Father Coronary artery disease CHF (congestive heart failure) Diabetes High blood pressure Heart disease Mother High blood pressure High cholesterol Vulvar cancer Thyroid cancer Osteoporosis Maternal Grandfather Colon cancer Brother Sleep apnea Uncle Stomach cancer Social History (Updated 07/08/24 @ 11:41 by Donna Shrestha MD) Narrative: Non-smoker, no alcohol use, lives with Felipe who would be MDM if needed. Full Code but does not desire long-term intubation.? 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 What is your current living situation?: I presently have a place to live Problems where you live: no known problems Problems where you live details: none In the past 12 months, utilities in danger of being shut off: no In past 12 months, lack of transportation kept you from medical appts, meetings, work, or getting things needed for daily living: no In the past 12 mos, have been you worried that your food would run out before you had money to buy more?: never true In the past 12 mos, the food you bought just didn't last and you didn't have money to buy more?: never true Highest level of school completed/degree received: Associate degree: occupat ional, technical, vocational program Smoking Status: Never smoker Do you use any of these nicotine containing products: None Second hand tobacco smoke exposure: No How often do you have a drink containing alcohol: never How often do you have six or more drinks on one occasion: Never AUDIT-C Alcohol total score: 0 Non-prescribed substance use: denies use Caffeine: Yes (coffee) How often does anyone, including family, friends and others, physically hurt you : never How often does anyone, including family, friends and others, insult or talk down to you: never How often does anyone, including family, friends and others, threaten you with harm: never How often does anyone, including family, friends and others, scream or curse at you: never Gender Identity: female service: No Exam Narrative: Exam Narrative: Constitutional: Well-developed, well-nourished, no acute distress. HEENT: Normocephalic, atraumatic. Neck: Normal range of motion. Nontender. Supple. Heart: Intact distal pulses. Lungs: No chest discomfort. No wheezes, rhonchi, or rales. Abdomen: Nontender. Back: Normal range of motion. Extremities: Normal range of motion. No injury. Skin: Intact. Generalized maculopapular rash with erythema and pruritus. No sign of angioedema. Neurologic: No altered sensation. No weakness. Alert and oriented. Psychiatric: No suicidality. No anxiety or depression. No insomnia. Nursing notes and vitals signs are reviewed. Const: Vital Signs, click to edit/add: Vital Signs - 24 hr 12/04/24 13:07 Temperature 98.9 F Pulse Rate [Pulse Oximeter] 83 Respiratory Rate 16 Blood Pressure [Ri ght Upper Arm] 138/76 Pulse Oximetry 94 Oxygen Delivery Me thod Room Air Course Vital Signs Vital signs: Initial Vital Signs Temperature 98.9 F 12/04/24 13:07 Temperature Source Temporal Artery Scan 12/04/24 13:07 Pulse Rate 83 12/04/24 13:07 Respiratory Rate 16 12/04/24 13:07 Blood Pressure 138/76 12/04/24 13:07 Blood Pressure Mean 96 12/04/24 13:07 Pulse Oximetry 94 12/04/24 13:07 Oxygen Delivery Method Room Air 12/04/24 13:07 Vital Signs Temperature 98.9 F 12/04/24 13:07 Pulse Rate 83 12/04/24 13:07 Respiratory Rate 16 12/04/24 13:07 Blood Pressure 138/76 12/04/24 13:07 Pulse Oximetry 94 12/04/24 13:07 Oxygen Delivery Method Room Air 12/04/24 13:07 Temperature 98.9 F 12/04/24 13:07 Pulse Rate 83 12/04/24 13:07 Respiratory Rate 16 12/04/24 13:07 Blood Pressure 138/76 12/04/24 13:07 Pulse Oximetry 94 12/04/24 13:07 Oxygen Delivery Method Room Air 12/04/24 13:07 MDM - Allergic Reaction MDM Narrative Medical decision making narrative: This patient comes in with allergic reaction a stents a bleed to cephalexin however she recently went through a surgical procedure for some veins in her legs and there may be other sources of allergens that are triggering her symptoms. She has stopped taking cephalexin and is taking prednisone despite the increased blood glucose that will happen secondarily with her history of diabetes. She is also taking Zyrtec and triamcinolone cream. This patient is not showing any signs of compromise. She has no sign of angioedema or anaphylaxis. I a reviewed treatment options for allergy symptoms and stated that she is on a good plan in that regard. I did recommend trying Mora instead of Zyrtec which according to a allergy lecture I heard a few years ago can be given up to 3 times a day for additional benefit. Discharge Plan Discharge Clinical Impression: Allergic reaction Patient Disposition: Home, Self-Care Condition: Stable Additional Instructions: Continue current medications as prescribed. Consider switching from Zyrtec to Mora (Fexofenadine) and take it 3 times daily as needed. Follow up with MD return if worsening. Prescriptions: No Action docusate sodium [Dulcolax Stool Softener (dss)] 100 mg capsule 200 mg PO BID cholecalciferol (vitamin D3) 25 mcg (1,000 unit) capsule 50 mcg PO DAILY ascorbic acid (vitamin C) 500 mg tablet 500 mg PO DAILY metformin 500 mg tablet extended release 24 hr 500 mg PO BID Qty: 180 3RF rosuvastatin 5 mg tablet 5 mg PO DAILY@1800 Qty: 90 3RF amlodipine 2.5 mg tablet 2.5 mg PO DAILY@1800 Qty: 90 3RF diphenhydramine HCl [Benadryl] 25 mg capsule 50 mg PO QHS PRN prednisone 20 mg tablet 20 mg PO QDAY 5 Days Qty: 5 0RF calcium carbonate [Oyster Shell Calcium] 500 mg calcium (1,250 mg) tablet 500 mg PO DAILY turmeric 400 mg capsule 400 mg PO DAILY amoxicillin-pot clavulanate 875-125 mg tablet 1 tab PO BID Qty: 10 0RF triamcinolone acetonide 0.1 % cream 1 applic topical BID PRN (Reason: rash) Qty: 80 0RF Follow Up/Referrals: Maria Antonia Garner MD [Primary Care Provider] - Stand Alone Forms: [facility] Info Instructions
--- OUTSIDE RECORDS SUMMARY | 2024-12-04 14:26 | XMS_ITS | Clinical Summary ---
Author Organization [facility] Address [address] [place] [address] Care Team Providers Care Agricultural Economist Name Role Phone Maria Antonia Garner MD Primary Care Provider [phone] Sandeep Tom PA-C Unavailable [phone] Allergies Active Allergy Reactions Criticality Noted Date [...] Department Care Team Description 09/20/2024 2:00 PM MILITARY COOK Office Visit [address] [phone] Sandeep Tom PA-C ELVIRA (obstructive sleep apnea) [...] Comments Blood Pressure 138/86 09/20/2024 1:00 PM MILITARY COOK Pulse 75 09/20/2024 1:00 PM MILITARY COOK Temperature - - Respiratory Rate - - Oxygen Saturation 100% 09/20/2024 1:00 PM MILITARY COOK Inhaled Oxygen Concentration - - Weight 81.6 kg (180 lb) 09/20/2024 1:00 PM MILITARY COOK Height 157.5 cm (5' 2) 09/20/2024 1:00 PM MILITARY COOK Body Mass Index 32.92 09/20/2024 1:00 PM MILITARY COOK Plan of Treatment Upcoming Encounters Date Type Department Care Team (Late st Contact Info) Description 08/15/2025 1:30 PM MILITARY COOK Office Visit [address] [phone] Sandeep Tom PA-C [address] [phone] Health Maintenance Due Date Last Done Comments [...] patient's age to complete this topic Insurance [facility] MEDICARE ADVANTAGE Care Teams Agricultural Economist Relationship Specialty Start Date End Date Garner, Maria Antonia E, MD [address] [address] PCP - General Family Medicine 09/20/24 Sandeep Tom PA-C [address] [address] Assigned Neuroscience Provider 09/30/24
--- OUTSIDE RECORDS SUMMARY | 2024-12-04 14:27 | XMS_ITS | Encounter Summary ---
Author Organization [facility] Address [address] [place] [address]. [place] [address] Care Team Providers Care Nutrition Director Name Role Phone Maria Antonia Garner MD Primary Care Provider [phone] Sandeep Tom PA-C Unavailable [phone] Reason for Visit * Reason Comments Sleep Problem CPAP Annual Encounter Details Date Type Department Care Team (Late st Contact Info) Description 09/20/2024 2:00 PM CROZER Office Visit [facility] [address] [phone] Sandeep Tom PA-C [address] [address] ELVIRA (obstructive sleep apnea) (Primary [...] Comments Blood Pressure 138/86 09/20/2024 1:00 PM CROZER Pulse 75 09/20/2024 1:00 PM CROZER Temperature - - Respiratory Rate - - Oxygen Saturation 100% 09/20/2024 1:00 PM CROZER Inhaled Oxygen Concentration - - Weight 81.6 kg (180 lb) 09/20/2024 1:00 PM CROZER Height 157.5 cm (5' 2) 09/20/2024 1:00 PM CROZER Body Mass Index 32.92 09/20/2024 1:00 PM CROZER documented in this encounter Progress Notes * [...] moderate ELVIRA initially diagnosed in 2011 in [place]. She did not tolerate CPAP on 2 [...] is 0.1/hr. Past Sleep Evaluations: 07/15/2012 in [place]. AHI 21.3/hr. REM AHI 63.2/hr. O2 quentin [...] Social History: She met her at the [employer] they both worked at. 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 After that, she went back to school and worked in [employer]. SCALES: EPWORTH SLEEPINESS SCALE 09/20/2024 2:00 PM Granby Sleepiness Scale ( Evonne Weiss 6445-1968
ESS - [place]altese - Final version - Jun 14 - [facility] [employer].) Granby Score (Sleep) 2 INSOMNIA SEVERITY INDEX (TOÑO) [...] Clinical insomnia (severe) Used via courtesy of www.[employer]th.pa.gov with permission from Luis Eduardo Clark PhD., [employer] STOP BANG 09/20/2024 1:00 PM STOP BANG Questionnaire (?? 2008, the [place] Society [employer]esthesi[employer], Inc. Mary Giovanny & [...] and colleagues, with an educational mazin from [employer] No permission required to reproduce, translate, [...] Food Insecurity: Low Risk (06/16/2022) Received from [facility] Food Insecurity Have there been times that your food ran out, and you didn't have money to get more?: No Are there times that you worry that this might happen?: No Transportation Needs: Low Risk (06/16/2022) Received from [facility] Transportation Needs Do you have trouble getting transportation to medical appointments?: No How do you normally get to and from your appointments?: Not on file Physical Activity: Not on file Stress: Not on file Social Connections: Not on file Interpersonal Safety: Not on file Housing Stability: Low Risk (06/16/2022) Received from [facility] Housing Stability Are you concerned about having [...] GLC, BUN, CR, JOHNATHAN in the last 26475 hours. No results for input(s): WBC, RBC, HGB, HCT, MCV, MCH, MCHC, RDW, PLT in the [id number] hours. No results for input(s): PROTTOTAL, ALBUMIN, BILITOTAL, ALKPHOS, AST, ALT, BILIDIRECTin the last 76123 hours. No results found for: TSH No results found for: UAMP, UBARB, BENZODIAZEUR, UCANN, UCOC, OPIT, UPCP No results found for: IRONSAT, SH61033, ABDOUL No results found for: PH, PHARTERIAL, PO2, XK5RRTYDFYN, SAT, PCO2, HCO3, BASEEXCESS, BLANCA, BEB @LABRCNTIPR(phv:4,pco2v:4,po2v:4,hco3v:4,dash:4,o2per:4)@ Echocardiology: No results found for this or any previous visit (from the past 4320 hours). Chest x-ray: No results found for this or any previous visit from the past [address]: No results found for this or any previous visit from the past 365 days. PFT: [facility] No results found for: Sandeep Tom PA-C, LINDSEY 09/19/2024 ER documented in this encounter Nursing Notes * [...] inches / 38 centimeters. DME: [facility] ER documented in this encounter Plan of Treatment Upcoming Encounters Date Type Department Care Team (Late st Contact Info) Description 08/15/2025 1:30 PM CROZER Office Visit [facility] [address] [place] [phone] Sandeep Tom PA-C [address] [place], [place] [phone] documented as of this encounter Visit Diagnoses Diagnosis ELVIRA (obstructive sleep apnea)- Primary Obstructive sleep apnea (adult) (pediatric) documented in this encounter Care Teams Nutrition Director Relationship Specialty Start Date End Date Maria Antonia Garner MD [address] [address] PCP - General Family Medicine 09/20/24 Sandeep Tom PA-C [address] [place] [address] Assigned Neuroscience Provider 09/30/24 documented as of this encounter
--- OUTSIDE RECORDS SUMMARY | 2024-12-04 14:27 | XMS_ITS | Clinical Summary ---
Author Organization [facility] Address [address] [place] [address] Care Team Providers Care Processing Mgr Name Role Phone Shahzad Temple Primary Care [...] Type Department Care Team Description 11/29/2024 Telephone [facility] [address] [facility] [address] [place], [place] [phone] Que Ansari MD NEEDS TO CHANGE SURGERY DATE 11/19/2024 Transcribe Orders [facility] [address] [place] [address] Que Ansari MD 11/08/2024 8:00 AM CDT Office Visit [facility] [address] [facility] [address] [place] [address] Que Ansari MD Recheck (left hand numbness) 11/08/2024 Travel 10/11/2024 Telephone [facility] [address] [place] [address] Que Ansari MD Follow Up (Shot) 10/05/2024 1:30 PM HEALTHCARE CORPORATE ACCOUNT DIRECTOR Office Visit [facility] [address] [place] [address] Vinicio Monge MD Follow Up (Urinary retention) 10/05/2024 Travel 10/04/2024 11:40 AM HEALTHCARE CORPORATE ACCOUNT DIRECTOR Procedure Only [facility] [address] [place] [address] Kenroy Del Rosario MD Procedure (Carpal tunnel syndrome on left) 10/03/2024 Travel 09/28/2024 Telephone [facility] [address] [place] [address] Que Ansari MD Imaging (EMG RESULTS ) 09/27/2024 Orders Only [facility] Scanner 1 scan: (1-Ord) [facility] 09/06/2024 1:00 PM HEALTHCARE CORPORATE ACCOUNT DIRECTOR Office Visit [facility] [address] [facility] [address] [place] [address] Que Ansari MD Hand Pain/problem (left hand [...] on file Legal Sex Female 8:06 AM HEALTHCARE CORPORATE ACCOUNT DIRECTOR Gender Identity Not on file Sexual Orientation Not on file Obstetrics History Last Filed Vital Signs Vital Sign Reading Time Taken Comments Blood Pressure 148/84 07/18/2024 8:21 AM HEALTHCARE CORPORATE ACCOUNT DIRECTOR Pulse 60 10/05/2024 1:37 PM HEALTHCARE CORPORATE ACCOUNT DIRECTOR Temperature 37.3 C (99.1 F) 12/07/2010 12:01 PM CDT Respiratory Rate 16 06/18/2024 2:01 PM HEALTHCARE CORPORATE ACCOUNT DIRECTOR Oxygen Saturation 100% 10/05/2024 1:37 PM HEALTHCARE CORPORATE ACCOUNT DIRECTOR Inhaled Oxygen Concentration - - Weight 82.1 kg (181 lb) 10/05/2024 1:37 PM HEALTHCARE CORPORATE ACCOUNT DIRECTOR Height - - Body Mass Index - - Plan of Treatment Upcoming Encounters Date Type Department Care Team (Late st Contact Info) Description 12/05/2024 1:00 PM CDT Ancillary Procedure [facility] [address] [place] [address] 01/17/2025 1:30 PM CDT Office Visit [facility] [address] [place] [address] [address] [place] [address] Naheed Burr PA [address] [facility] [address] [place] [address] Scheduled Procedures Name Priority Associated Diagnoses Date/Ti me SURGICAL PROCEDURE (TYPE PRO CEDURE DESCRIPTION BELOW) Elective Carpal tunnel syndrome on left Cubital tunnel syndrome, left Health Maintenance Due Date Last Done Comments Tdap 1951 Depression screening for age 12+ 1953 BMI (ht and wt on same day) for age 18+ 11/08/1959 Pneumococcal series for age 50+ (1 of 2 - PCV) 1960 Tetanus booster 1961 Zoster (shingles) series for [...] Diagnosis Comments SCAN-DIAGNOSTIC REPORT 10/05/2024 12:00 AM HEALTHCARE CORPORATE ACCOUNT DIRECTOR SCAN-ELECTROMYOGRAM EMG 09/27/2024 12:00 AM HEALTHCARE CORPORATE ACCOUNT DIRECTOR from Last 3 Months Results * SCAN-DIAGNOSTIC REPORT (10/05/2024 12:00 AM HEALTHCARE CORPORATE ACCOUNT DIRECTOR) us Scanner OTHER Final Result * SCAN-ELECTROMYOGRAM EMG (09/27/2024 12:00 AM HEALTHCARE CORPORATE ACCOUNT DIRECTOR) us Scanner OTHER Final Result from Last 3 Months Insurance BLUE CROSS MEDICARE ADVANTAGE MR Care Teams Processing Mgr Relationship Specialty [place] [address] [place] [address] PCP - General Family Practice 12/07/10
--- OUTSIDE RECORDS SUMMARY | 2024-12-04 14:27 | XMS_ITS | Clinical Summary ---
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 Immunizations No information available. Advance Directives No information available.
== END 2024-12-04 14:24 | disposition home or self-care (01) ==
LOC: ED 14:24
PROVIDERS: Emergency Provider Emergency Medicine Emergency Medical Services; PCP Family Medicine
DX: L50.9 Urticaria, unspecified (principal); L29.9 Pruritus, unspecified; T36.1X5A Adverse effect of cephalosporins and other beta-lactam antibiotics, initial encounter
CPT/HCPCS: 99283; 99285

== ENCOUNTER 2024-12-05 12:44 | Outpatient (CLI) | payer MEDICARE, SELFPAY ==
--- NOTE | 2024-12-05 14:00 | CRLHL7_ITS ---
For Patients: As a result of the Century Cures Act, medical imaging exams and procedure reports are released immediately into your electronic medical record. You may view this report before your referring provider. If you have questions, please contact your health care provider. BILATERAL DIGITAL SCREENING MAMMOGRAM WITH COMPUTER-AIDED DETECTION AND TOMOSYNTHESIS CLINICAL HISTORY: : Routine screening exam. COMPARISON: 12/02/2023, 11/30/2022, 11/19/2021 TECHNIQUE: Digital mammogram in CC and MLO projections including computer-aided detection (CAD). Tomosynthesis was used in this interpretation. BREAST COMPOSITION: The breasts are heterogeneously dense, which may obscure small masses. FINDINGS: RIGHT Breast: No suspicious findings LEFT Breast: Focal asymmetric density upper outer quadrant 6 cm from the nipple. IMPRESSION: LEFT breast asymmetry/mass. RECOMMENDATIONS: Additional mammographic views of the LEFT breast including 3D spot compression CC/MLO. LEFT breast ultrasound may also be required. The [facility] will contact the patient. A lay language report of this examination will be provided to the patient. BI-RADS Category 0: Incomplete: Need Additional Imaging Evaluation Dictated by Rajat Mendoza MD @ 12/17/2024 12:31:00 PM Dictated by: Rajat Mendoza MD @ 12/17/2024 12:31:06 (Electronically Signed)
--- NOTE | 2024-12-05 14:30 | CRLHL7_ITS ---
For Patients: As a result of the Century Cures Act, medical imaging exams and procedure reports are released immediately into your electronic medical record. You may view this report before your referring provider. If you have questions, please contact your health care provider. DXA BONE MINERAL DENSITY STUDY Current height (in): 62. Weight (lb): 179. Menopause age: 51. Ethnicity: White. 1. Have you had a previous hip or vertebral fracture? Yes. 2. Have you had any fractures during your adult life which did not result from significant trauma (e.g., auto accident)? Yes. 3. Did either of your parents have a hip fracture? No. 4. Do you smoke? No. 5. Have you ever taken Glucocorticoids? No. 6. Do you have rheumatoid arthritis? No. 7. Do you have secondary osteoporosis? No. 8. Do you drink 3 or more alcoholic drinks per day? No. 9. Are you being treated for osteoporosis? No. 10. Have you ever taken any of the following medications: Actonel, Evista, Fosamax, Miacalcin, Reclast, Boniva, Forteo, HRT (i.e. estrogen/hormone therapy), Protelos, Prolia, Vitamin D, Calcium, other ??? please specify. ANSWER: Yes, Vitamin D and Calcium. 11. Do you have any of the following medical conditions: Anorexia or bulimia, asthma or emphysema, end stage renal disease, hyperparathyroidism, any seizure disorders, cancer, inflammatory bowel diseases, hysterectomy, other ??? please specify. ANSWER: Yes, Hysterectomy. 12. What was your maximum height (inches)? 64. 13. Do you perform weight bearing exercise regularly? Yes. 14. Do you regularly consume dairy products? Yes. 15. Do you drink caffeinated beverages? Yes. 16. At what age did your period start? 15. 17. Are you premenopausal? No. 18. How many full term pregnancies have you had? 2. 19. Have you ever missed your period for more than 6 months in a row (not including or menopause)? No. TECHNIQUE: Bone mineral density study was performed using the [employer]. FINDINGS: The results of the study expressed as bone mineral density (BMD) are as follows: Lumbar spine L1 to L4: BMD: 1.244 g/cm2. T-score: 1.8. Z-score: 4.6. Radius Left 33%: BMD: 0.594 g/cm2. T-score: -1.7. Z-score: 1.8. IMPRESSION: Osteopenia. Miriam Pritchett M.D. Diagnostic/Breast Radiologist [email or web address] TERRENCE/elias / DW/Dictated by: Miriam Pritchett MD @ 12/07/2024 11:38:00 AM (Electronically Signed)
== END 2024-12-05 12:45 | disposition home or self-care (01) ==
PROVIDERS: PCP Family Medicine; Visit Provider Family Medicine
DX: I34.0 Nonrheumatic mitral (valve) insufficiency (principal); Z12.31 Encounter for screening mammogram for malignant neoplasm of breast; R92.333 Mammographic heterogeneous density, bilateral breasts; N63.20 Unspecified lump in the left breast, unspecified quadrant; E11.9 Type 2 diabetes mellitus without complications; M85.89 Other specified disorders of bone density and structure, multiple sites
CPT/HCPCS: 77063; 77067; 77080; 93306

== ENCOUNTER 2024-12-05 14:26 | Emergency (ER) | payer MEDICARE, SELFPAY ==
--- OUTSIDE RECORDS SUMMARY | 2024-12-05 14:28 | XMS_ITS | Clinical Summary ---
Author Organization [facility] Address [address] [place] [address] Care Team Providers Care Dictating Machine Transcriber Name Role Phone Maria Antonia Garner MD Primary Care Provider [phone] Sandeep Tom PA-C Unavailable [phone] Allergies Active Allergy Reactions Criticality Noted Date [...] Department Care Team Description 09/20/2024 2:00 PM MARKETING PROPOSAL COORDINATOR Office Visit [address] [phone] Sandeep Tom PA-C ELVIRA (obstructive sleep apnea) [...] Comments Blood Pressure 138/86 09/20/2024 1:00 PM MARKETING PROPOSAL COORDINATOR Pulse 75 09/20/2024 1:00 PM MARKETING PROPOSAL COORDINATOR Temperature - - Respiratory Rate - - Oxygen Saturation 100% 09/20/2024 1:00 PM MARKETING PROPOSAL COORDINATOR Inhaled Oxygen Concentration - - Weight 81.6 kg (180 lb) 09/20/2024 1:00 PM MARKETING PROPOSAL COORDINATOR Height 157.5 cm (5' 2) 09/20/2024 1:00 PM MARKETING PROPOSAL COORDINATOR Body Mass Index 32.92 09/20/2024 1:00 PM MARKETING PROPOSAL COORDINATOR Plan of Treatment Upcoming Encounters Date Type Department Care Team (Late st Contact Info) Description 08/15/2025 1:30 PM MARKETING PROPOSAL COORDINATOR Office Visit [address] [phone] Sandeep Tom PA-C [address] [phone] Health Maintenance Due Date Last Done Comments [...] patient's age to complete this topic Insurance [facility] MEDICARE ADVANTAGE Care Teams Dictating Machine Transcriber Relationship Specialty Start Date End Date Garner, Maria Antonia E, MD [address] [address] PCP - General Family Medicine 09/20/24 Sandeep Tom PA-C [address] [address] Assigned Neuroscience Provider 09/30/24
--- OUTSIDE RECORDS SUMMARY | 2024-12-05 14:29 | XMS_ITS | Clinical Summary ---
Author Organization [facility] Address [address] 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 Immunizations No information available. Advance Directives No information available.
--- OUTSIDE RECORDS SUMMARY | 2024-12-05 14:29 | XMS_ITS | Clinical Summary ---
Author Organization [facility] Address [address] [place] [address] Care Team Providers Care Advanced Developer Name Role Phone Shahzad Temple Primary Care [...] Encounters Date Type Department Care Team Description 12/05/2024 1:00 PM CDT Ancillary Procedure [facility] & [address] [address] Arrived 11/29/2024 Telephone [facility] [address] [facility] [address] [facility] [address] [place] [address] Que Ansari MD NEEDS TO CHANGE SURGERY DATE 11/19/2024 Transcribe Orders [facility] [address] [facility] [address] [facility] [address] [place] [address] Que Ansari MD 11/08/2024 8:00 AM CDT Office Visit [facility] [address] [address] Que Ansari MD Recheck (left hand numbness) 11/08/2024 Travel 10/11/2024 Telephone [facility] [address] [facility] [address] [facility] [address] [place] [address] Que Ansari MD Follow Up (Shot) 10/05/2024 1:30 PM SUPPLIER QUALITY SPECIALIST Office Visit [facility] [address] [place] [address] Vinicio Monge MD Follow Up (Urinary retention) 10/05/2024 Travel 10/04/2024 11:40 AM SUPPLIER QUALITY SPECIALIST Procedure Only [facility] [address] [place] [address] Kenroy Del Rosario MD Procedure (Carpal tunnel syndrome on left) 10/03/2024 Travel 09/28/2024 Telephone [facility] [address] [facility] [address] [place] [address] Que Ansari MD Imaging (EMG RESULTS ) 09/27/2024 Orders Only [facility] Scanner 1 scan: (1-Ord) [facility] 09/06/2024 1:00 PM SUPPLIER QUALITY SPECIALIST Office Visit [facility] [address] [address] Que Ansari MD Hand Pain/problem (left hand pain) from Last 3 Months Family History Medical [...] on file Legal Sex Female 8:06 AM SUPPLIER QUALITY SPECIALIST Gender Identity Not on file Sexual Orientation Not on file Obstetrics History Last Filed Vital Signs Vital Sign Reading Time Taken Comments Blood Pressure 148/84 07/18/2024 8:21 AM SUPPLIER QUALITY SPECIALIST Pulse 60 10/05/2024 1:37 PM SUPPLIER QUALITY SPECIALIST Temperature 37.3 C (99.1 F) 12/07/2010 12:01 PM CDT Respiratory Rate 16 06/18/2024 2:01 PM SUPPLIER QUALITY SPECIALIST Oxygen Saturation 100% 10/05/2024 1:37 PM SUPPLIER QUALITY SPECIALIST Inhaled Oxygen Concentration - - Weight 82.1 kg (181 lb) 10/05/2024 1:37 PM SUPPLIER QUALITY SPECIALIST Height - - Body Mass Index - - Plan of Treatment Upcoming Encounters Date Type Department Care Team (Late st Contact Info) Description 01/17/2025 1:30 PM CDT Office Visit [facility] [phone] [place] [address] [address] [place] [address] Naheed Burr PA [address] [facility] [address] [place] [address] Scheduled Procedures Name Priority Associated Diagnoses Date/Ti [...] Procedure Name Priority Date/Time Associated Diagnosis Comments ECHO TTE COMPLETE WO CONTRAST Routine 12/05/2024 1:38 PM CDT Nonrheumatic mitral (valve) insufficiency SCAN-DIAGNOSTIC REPORT 10/05/2024 12:00 AM SUPPLIER QUALITY SPECIALIST SCAN-ELECTROMYOGRA M EMG 09/27/2024 12:00 AM SUPPLIER QUALITY SPECIALIST from Last 3 Months Results * ECHO TTE COMPLETE WO CONTRAST (12/05/2024 1:38 PM CDT) AORTIC VALVE MEAN PG 8 mmHg EJECTION FRACTION 73 % PEAK TR VELOCITY 2.6 m/s LVEDD 3.6 cm EJECTION FRACTION 65 - 70% Anatomical Region Laterality Modality Ultrasound 12/05/2024 1:07 PM CDT Narrative 12/05/2024 2:07 PM CDT ECHOCARDIOGRAM JOSE LEBLANC : 1940 84 years Study Date: 12/05/2024 1:07:30 PM Gender: F BP: 138/65 mmHg Height: 157.00 cm BSA: 1.86 m Weight: 86.00 kg Tech: Shari Referring MD: JOHN MATHUR Site: [facility] Reading Location: [place] Patient Location: Outpatient. Procedure: 2D, Color Doppler and Spectral Doppler. Indication for study: Nonrheumatic mitral (valve) insufficiency Cardiac Rhythm: Regular.Study quality: Fair. Final Impressions: 1. Normal LV size, normal wall thickness, normal global systolic function with an estimated EF of 65 - 70%. 2. Right ventricular cavity size is normal, global systolic RV function is normal. 3. No significant valve disease detected. No significant MR visualized. 4. Normal estimated RA pressure and PASP. Comparison There are no prior studies on this patient for comparison purposes. Chamber Sizes and Function Normal left ventricular size, normal wall thickness, normal global systolic function with an estimated EF of 65 - 70%. No resting regional wall motion abnormality visualized. Left atrial size is normal. Right ventricular cavity size is normal, global systolic RV function is normal. The right atrium is normal. Right atrial volume index is 14 ml/m . Right atrial area is 14 cm . The pulmonary artery is not well visualized. The sinus of Valsalva is normal sized. The ascending aorta is normal sized. Valves, RV Pressures and Diastolic Function The aortic valve is normal in structure, no stenosis and no regurgitation. The mitral valve is normal in structure, mild mitral regurgitation. Normal diastolic function. The tricuspid valve is normal in structure, trace tricuspid regurgitation. The tricuspid regurgitant velocity is 2.6 m/s, the estimated right ventricular systolic pressure is 27 mmHg plus right atrial pressure. The pulmonic valve is not well visualized. Trace pulmonary regurgitation. Masses, Effusion, Shunts There is no pericardial effusion. The inferior vena cava is normal sized, respiratory size variation greater than 50%. No left to right shunting was detected by limited color flow Doppler interrogation of the interatrial septum. MEASUREMENTS AND CALCULATIONS 2-D Measurements and LV Function: LVID (d) 3.6 cm LV FS% (2D) 40 % LVID (s) 2.1 cm LVOT diameter 2.0 cm IVS (d) 0.9 cm HR 71 bpm LVPW (d) 1.3 cm LA Vol index 20 ml/m2 Ao Sinus 2.8 cm RA Vol index 14 ml/m2 Ao Sinus ULN 3.8 cm * RA area 14 cm Asc Ao 3.7 cm RV Basal Diam 4.0 cm Asc Ao ULN 4.1 cm * RV Mid Diam 2.1 cm LA 4.2 cm * Input age outside of range, reported values correspond to Age = 81 Diastology: Mitral Tissue Doppler E Peak 0.9 m/s e', Septum 0.10 m/s A Peak 1.3 m/s e', Lateral 0.09 m/s E/A 0.7 E/e' Average 10.16 DT 229 msec Aortic Valve: Vmax 2.0 m/s FERMÍN (V) 2.64 cm VTI 0.43 m FERMÍN (I) 2.46 cm LVOT V max 1.7 m/s Max PG 16 mmHg LVOT VTI 0.34 m Mean PG 8 mmHg SV 105 ml Dim Index 0.78 SV index 56 ml/m CO 7.5 l/min CI 4.0 l/min/m Mitral Valve: MVA 3.3 cm MV P 1/2 66 msec Tricuspid Valve and estimated PA pressures: TR Vmax 2.6 m/s TAPSE 2.8 cm TR maxG 27 mmHg . This study was interpreted by an [facility] accredited facility. Final Procedure Note Zeb Cooley MD - 12/05/2024 ECHOCARDIOGRAM JOSE LEBLANC : 1940 84 years Study Date: 12/05/2024 1:07:30 PM Gender: F BP: 138/65 mmHg Height: 157.00 cm BSA: 1.86 m Weight: 86.00 kg Tech: MIRACLE Referring MD: JOHN MATHUR Site: [facility] Reading Location: [place] Patient Location: Outpatient. Procedure: 2D, Color Doppler and Spectral Doppler. Indication for study: Nonrheumatic mitral (valve) insufficiency Cardiac Rhythm: Regular.Study quality: Fair. Final Impressions: 1. Normal LV size, normal wall thickness, normal global systolic functionwith an estimated EF of 65 - 70%. 2. Right ventricular cavity size is normal, global systolic RV functionis normal. 3. No significant valve disease detected. No significant MR visualized. 4. Normal estimated RA pressure and PASP. Comparison There are no prior studies on this patient for comparison purposes. Chamber Sizes and Function Normal left ventricular size, normal wall thickness, normal globalsystolic function with an estimated EF of 65 - 70%. No resting regionalwall motion abnormality visualized. Left atrial size is normal. Rightventricular cavity size is normal, global systolic RV function is normal.The right atrium is normal. Right atrial volume index is 14 ml/m . Rightatrial area is 14 cm . The pulmonary artery is not well visualized. Thesinus of Valsalva is normal sized. The ascending aorta is normal sized. Valves, RV Pressures and Diastolic Function The aortic valve is normal in structure, no stenosis and no regurgitation.The mitral valve is normal in structure, mild mitral regurgitation. Normaldiastolic function. The tricuspid valve is normal in structure, tracetricuspid regurgitation. The tricuspid regurgitant velocity is 2.6 m/s,the estimated right ventricular systolic pressure is 27 mmHg plus rightatrial pressure. The pulmonic valve is not well visualized. Tracepulmonary regurgitation. Masses, Effusion, Shunts There is no pericardial effusion. The inferior vena cava is normal sized,respiratory size variation greater than 50%. No left to right shunting wasdetected by limited color flow Doppler interrogation of the interatrialseptum. MEASUREMENTS AND CALCULATIONS 2-D Measurements and LV Function: LVID (d) 3.6 cm LV FS% (2D) 40% LVID (s) 2.1 cm LVOT diameter2.0 cm IVS (d) 0.9 cm HR 71bpm LVPW (d) 1.3 cm LA Vol index 20ml/m2 Ao Sinus 2.8 cm RA Vol index 14ml/m2 Ao Sinus ULN 3.8 cm * RA area 14cm Asc Ao 3.7 cm RV Basal Diam4.0 cm Asc Ao ULN 4.1 cm * RV Mid Diam2.1 cm LA 4.2 cm * Input age outside of range, reported values correspond to Age = 81 Diastology: Mitral Tissue Doppler E Peak 0.9 m/s e', Septum 0.10 m/s A Peak 1.3 m/s e', Lateral 0.09 m/s E/A 0.7 E/e' Average 10.16 DT 229 msec Aortic Valve: Vmax 2.0 m/s FERMÍN (V) 2.64 cm VTI 0.43 m FERMÍN (I) 2.46 cm LVOT V max 1.7 m/s Max PG 16 mmHg LVOT VTI 0.34 m Mean PG 8 mmHg SV 105 ml Dim Index 0.78 SV index 56 ml/m CO 7.5 l/min CI 4.0 l/min/m Mitral Valve: MVA 3.3 cm MV P 1/2 66 msec Tricuspid Valve and estimated PA pressures: TR Vmax 2.6 m/s TAPSE 2.8 cm TR maxG 27 mmHg . This study was interpreted by an [facility] accredited facility. Final us John Mathur MD ECHO ORD Final Res ult * SCAN-DIAGNOSTIC REPORT (10/05/2024 12:00 AM SUPPLIER QUALITY SPECIALIST) us Scanner OTHER Final Result * SCAN-ELECTROMYOGRAM EMG (09/27/2024 12:00 AM SUPPLIER QUALITY SPECIALIST) us Scanner OTHER Final Result from Last 3 Months Insurance [employer] MEDICARE ADVANTAGE MR Care Teams Advanced Developer Relationship Specialty Start [place] [address] [place] [address] PCP - General Family Practice 12/07/10
--- OUTSIDE RECORDS SUMMARY | 2024-12-05 14:29 | XMS_ITS | Encounter Summary ---
Author Organization [facility] Address [address] [place] [address]. [place] [address] Care Team Providers Care Purchasing Clerk Name Role Phone Maria Antonia Garner MD Primary Care Provider [phone] Sandeep Tom PA-C Unavailable [phone] Reason for Visit * Reason Comments Sleep Problem CPAP Annual Encounter Details Date Type Department Care Team (Late st Contact Info) Description 09/20/2024 2:00 PM TREASURER SAVINGS BANK Office Visit [facility] [address] [phone] Sandeep Tom PA-C [address] [address] ELVIRA (obstructive sleep apnea) (Primary [...] Comments Blood Pressure 138/86 09/20/2024 1:00 PM TREASURER [employer] Pulse 75 09/20/2024 1:00 PM T[employer]AS[employer] Temperature - - Respiratory Rate - - Oxygen Saturation 100% 09/20/2024 1:00 PM TREASURER S[employer] Inhaled Oxygen Concentration - - Weight 81.6 kg (180 lb) 09/20/2024 1:00 PM [employer] Height 157.5 cm (5' 2) 09/20/2024 1:00 PM TREASURER [employer] Body Mass Index 32.92 09/20/2024 1:00 PM T[employer]AS[employer] documented in this encounter Progress Notes * [...] moderate ELVIRA initially diagnosed in 2011 in [place]. She did not tolerate CPAP on 2 [...] is 0.1/hr. Past Sleep Evaluations: 07/15/2012 in [place]. AHI 21.3/hr. REM AHI 63.2/hr. O2 quentin [...] Social History: She met her at the [employer] they both worked at. 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 After that, she went back to school and worked in [employer]. SCALES: EPWORTH SLEEPINESS SCALE 09/20/2024 2:00 PM Newberg Sleepiness Scale ( Evonne Weiss [id number]
ESS - [place] - Final version - Jun 14 - [facility] Research Elmo.) Newberg Score (Sleep) 2 INSOMNIA SEVERITY INDEX (TOÑO) [...] Clinical insomnia (severe) Used via courtesy of www.[employer] Instrument[employer]h.[place].gov with permission from Luis Eduardo Clark PhD., [employer]?? [employer] STOP BANG 09/20/2024 1:00 PM STOP BANG Questionnaire (?? 2008, the [place] [employer]. Mary Giovanny & [...] and colleagues, with an educational mazin from [employer] No permission required to reproduce, translate, [...] Food Insecurity: Low Risk (06/16/2022) Received from [facility] Food Insecurity Have there been times that your food ran out, and you didn't have money to get more?: No Are there times that you worry that this might happen?: No Transportation Needs: Low Risk (06/16/2022) Received from [facility] Transportation Needs Do you have trouble getting transportation to medical appointments?: No How do you normally get to and from your appointments?: Not on file Physical Activity: Not on file Stress: Not on file Social Connections: Not on file Interpersonal Safety: Not on file Housing Stability: Low Risk (06/16/2022) Received from [facility] Housing Stability Are you concerned about having [...] GLC, BUN, CR, JOHNATHAN in the last 35714 hours. No results for input(s): WBC, RBC, HGB, HCT, MCV, MCH, MCHC, RDW, PLT in the uope76069 hours. No results for input(s): PROTTOTAL, ALBUMIN, BILITOTAL, ALKPHOS, AST, ALT, BILIDIRECTin the last 97280 hours. No results found for: TSH No results found for: UAMP, UBARB, BENZODIAZEUR, UCANN, UCOC, OPIT, UPCP No results found for: IRONSAT, BE66733, ABDOUL No results found for: PH, PHARTERIAL, PO2, PD4PQGQCNYM, SAT, PCO2, HCO3, BASEEXCESS, BLANCA, BEB @LABRCNTIPR(phv:4,pco2v:4,po2v:4,hco3v:4,dash:4,o2per:4)@ Echocardiology: No results found for this or any previous visit (from the past 4320 hours). Chest x-ray: No results found for this or any previous visit from the past [address]: No results found for this or any previous visit from the past 365 days. PFT: [facility] No results found for: Sandeep Tom PA-C, LINDSEY 09/19/2024 [employer] [employer] [employer] documented in this encounter Nursing Notes * [...] inches / 38 centimeters. DME: [facility] documented in this encounter Plan of Treatment Upcoming Encounters Date Type Department Care Team (Late st Contact Info) Description 08/15/2025 1:30 PM TREASURER [employer] Office Visit [facility] [id number] [place] [phone] Sandeep Tom PA-C [address] [place], [place] [phone] documented as of this encounter Visit Diagnoses Diagnosis ELVIRA (obstructive sleep apnea)- Primary Obstructive sleep apnea (adult) (pediatric) documented in this encounter Care Teams Purchasing Clerk Relationship Specialty Start Date End Date Maria Antonia Garner MD [address] [address] PCP - General Family Medicine 09/20/24 Sandeep Tom PA-C [address] [place] [address] Assigned Neuroscience Provider 09/30/24 documented as of this encounter
--- OUTSIDE RECORDS SUMMARY | 2024-12-05 14:29 | XMS_ITS | Data Portability ---
Author Organization [facility], [facility] Address [address] [place] [address] Care Team Providers Care Legal Department Manager Name Role Phone JOHN MATHUR Primary Care Provider Assessment Encounter Date Assessment Date Assessment LastModified by Organization Details LastModified Time 05/31/2024 05/31/2024 83-year-old female presents for bladder Botox [email or web address] Not available 05/31/2024 16:29:10 Plan of Treatment Reminders Order Date Submit Date Provider Last Modified By Organization Details Last Modified Time Details Appointments None recorded. Lab urinalysis, dipstick 2023 [facility], [address], [place] [address], [place], [address], 4 10:37:40 urinalysis, microscopic 2023 [facility], [address], [place], [place], [address], 5 05:01:04 urinalysis, dipstick 2023 024 [facility], [address], [place] [address], [place], [address], 4 12:41:53 urinalysis, microscopic 2023 024 [facility], [address], [place] [address], [place], [address], 5 05:01:40 culture, urine 2023 024 [facility], [address] [facility], [address], [place], [address], 4 10:21:48 Referral None recorded. Procedures None recorded. Surgeries None recorded. Imaging None recorded. Medication Orders None recorded. Patient TargetsNo targets recorded. Patient Instructions Encounter Date Encounter Id Patient Instructions Last Modified By Organization Details Last Modified Time 05/31/2024 [id number] 83-year-old female presents for bladder Botox. Botox performed without complication. [email or web address] Not available 05/31/2024 16:29:28 Reason for Referral None Reported. Results Created Date Observation Date Name Description Value Unit Range Abnormal Flag Note LastModifiedBy Organization Detail LastModifiedTime 05/17/2005/17/2024 UA WITHO UT MICRO - CS URISC AN blood - uriscan NEGATI VE negati ve Not Available [facility] [address] [facility] [address], [place], [address], 05/17/2024 12:41:53 05/17/2005/17/2024 UA WITHO UT MICRO - CS URISC AN bilirubin - uriscan NEGATI VE mg/dL negati ve Not Available [facility] [address] [facility] [address], [place], [address], 05/17/2024 12:41:53 05/17/2005/17/2024 UA WITHO UT MICRO - CS URISC AN urobilinogen - uriscan NORMAL mg/dL normal Not Available [facility] [address] [facility] [address], [place], [address], 05/17/2024 12:41:53 05/17/2005/17/2024 UA WITHO UT MICRO - CS URISC AN ketones - uriscan NEGATI VE mg/dL negati ve Not Available [facility] [address] [facility] [address], [place], [address], 05/17/2024 12:41:53 05/17/2005/17/2024 UA WITHO UT MICRO - CS URISC AN protein - uriscan NEGATI VE mg/dL negati ve Not Available [facility] [address] [facility] [address], [place], [address], 05/17/2024 12:41:53 05/17/2005/17/2024 UA WITHO UT MICRO - CS URISC AN nitrites - uriscan NEGATI VE negati ve Not Available [facility] [address] [facility] [address], [place], [address], 05/17/2024 12:41:53 05/17/2005/17/2024 UA WITHO UT MICRO - CS URISC AN glucose - uriscan NEGATI VE mg/dL negati ve Not Available [facility] [address] [facility] [address], [place], [address], 05/17/2024 12:41:53 05/17/2005/17/2024 UA WITHO UT MICRO - CS URISC AN pH - uriscan 5.00 5.00-9 .00 Not Available [facility] [address] [facility] [address], [place], [address], 05/17/2024 12:41:53 05/17/2005/17/2024 UA WITHO UT MICRO - CS URISC AN sp. gravity - uriscan <=1.01 1.01-1 .03 Not Available [facility] [address] [facility] [address], [place], [address], 05/17/2024 12:41:53 05/17/2005/17/2024 UA WITHO UT MICRO - CS URISC AN leukocytes - uriscan NEGATI VE negati ve Not Available [facility] [address] [facility] [address], [place], [address], 05/17/2024 12:41:53 05/17/2005/17/2024 UA WITHO UT MICRO - CS URISC AN color - uriscan YELLOW lt. yellow ;yello w Not Available [facility] [address] [facility] [address], [place], [address], 05/17/2024 12:41:53 05/17/20 24 05/17/2024 UA WITHO UT MICRO - CS URISC AN clarity - uriscan CLEAR clear Not Available [facility] [address] [facility] [address], [place], [address], 05/17/2024 12:41:53 05/17/20 24 05/17/2024 UA WITHO [...] Available [facility] [address] [facility] [address], [place], [address], 05/17/2024 12:41:53 05/17/20 24 05/17/2024 URINE CULTU RE final report MICROB IOLOGY RESULT S abnormal SOURC E Void KNOWN ALLER BRIJESH NKDA TREAT MENT none MEDIA PLATE D AT: Media plate d on 05/17 @ 12:19 PM COLON Y COUNT >100, 000 cfu/m l RESUL T Esche matthew a coli (Isol ate 1) Sensi tivit y Christianne sis [place] te 1 ----- ----- ----- ----- ----- [...] s Desk [facility]. S= Susce ptibl e;I= [...] Available [facility] [address] [facility] [address], [place], [address], 05/19/2024 10:21:48 05/31/2005/31/2024 UA WITHO UT MICRO - CS URISC AN blood - uriscan NEGATI VE negati ve Not Available [facility] [address] [place] [address] [address], [place], [address], 05/31/2024 10:37:40 05/31/2005/31/2024 UA WITHO UT MICRO - CS URISC AN bilirubin - uriscan NEGATI VE mg/dL negati ve Not Available [facility] [address] [place] [address] [address], [place], [address], 05/31/2024 10:37:40 05/31/2005/31/2024 UA WITHO UT MICRO - CS URISC AN urobilinogen - uriscan NORMAL mg/dL normal Not Available [facility] [address] [place] [address] [address], [place], [address], 05/31/2024 10:37:40 05/31/2005/31/2024 UA WITHO UT MICRO - CS URISC AN ketones - uriscan NEGATI VE mg/dL negati ve Not Available [facility] [address] [place] [address] [address], [place], [address], 05/31/2024 10:37:40 05/31/2005/31/2024 UA WITHO UT MICRO - CS URISC AN protein - uriscan NEGATI VE mg/dL negati ve Not Available [facility] [address] [place] [address] [address], [place], [address], 05/31/2024 10:37:40 05/31/2005/31/2024 UA WITHO UT MICRO - CS URISC AN nitrites - uriscan NEGATI VE negati ve Not Available [facility] [address] [place] [address] [address], [place], [address], 05/31/2024 10:37:40 05/31/2005/31/2024 UA WITHO UT MICRO - CS URISC AN glucose - uriscan NEGATI VE mg/dL negati ve Not Available [facility] [address] [place] [address] [address], [place], [address], 05/31/2024 10:37:40 05/31/2005/31/2024 UA WITHO UT MICRO - CS URISC AN pH - uriscan 5.00 5.00-9 .00 Not Available [facility] [address] [place] [address] [address], [place], [address], 05/31/2024 10:37:40 05/31/2005/31/2024 UA WITHO UT MICRO - CS URISC AN sp. gravity - uriscan 1.01 1.01-1 .03 Not Available [facility] [address] [place] [address] [address], [place], [address], 05/31/2024 10:37:40 05/31/2005/31/2024 UA WITHO UT MICRO - CS URISC AN leukocytes - uriscan NEGATI VE negati ve Not Available [facility] [address] [place] [address] [address], [place], [address], 05/31/2024 10:37:40 05/31/2005/31/2024 UA WITHO UT MICRO - CS URISC AN color - uriscan YELLOW lt. yellow ;yello w Not Available [facility] [address] [place] [address] [address], [place], [address], 05/31/2024 10:37:40 05/31/2005/31/2024 UA WITHO UT MICRO - CS URISC AN clarity - uriscan CLEAR clear Not Available [facility] [address] [place] [address] [address], [place], [address], 05/31/2024 10:37:40 05/31/2005/31/2024 UA WITHO UT MICRO [...] revie w. Not Available [facility] [address] [facility] [address], [place], [address], 05/31/2024 10:37:40 Result Notes None recorded. Problems Name Problem SNOMED Code Status Onset Date Resolution Date Notes Provider Name and Address Organization Details Recorded Time Overactive urinary bladder 364723365 Active 024 NICOLAS RAMAN MD [address] [facility], [place], [address], [facility] 4 15:30:10 Recurrent urinary tract infection 410472200 Active 024 NICOLAS RAMAN MD [address] [facility] [place] [address], [address], [facility] 4 08:57:56 Urinary tract infectious disease 50391550 Active 024 NICOLAS RAMAN MD [address] [facility] [place] [address], [address], [facility] 4 08:58:03 Problem Notes None recorded. Procedures Surgical History Date Name Laterality Status Provider Name and Address Organization Details Recorded Time 4 Cystoscopy with Botox Injections completed NICOLAS RAMAN MD [address] [facility],[address] [facility], [place], [address], [facility] 05/31/2024 16:29:04 4 Urine Culture completed Marybeth Rodriguez [facility] 05/16/2024 17:20:25 4 Urinalysis completed Lilly Shah [facility] 05/17/2024 12:33:20 Imaging Results None recorded. Procedure Notes None recorded. Medical Equipment None Reported. Allergies Allergen ID Allergen Name Allergen Category Reaction Reaction Severity Criticality Documentation Date Start Date Code Code System Note Provider Name and Address Organization Details Recorded Time 425234 levofloxa aaron medicatio n Not available Not available Not available 05/31/2024 73539 RxNorm Iliana Nevills [facility] 4 10:21:17 733636 codeine medicatio n Not available Not available Not available 05/31/2024 2670 RxNorm Iliana Nevills [facility] 4 10:21:25 230306 acetamino phen / hydrocodo ne medicatio n Not available Not available Not available 05/31/2024 50908 2 RxNorm Iliana Nevills [facility] 4 10:21:49 530705 Levaquin medicatio n Not available Not available Not available 05/31/2024 16209 2 RxNorm Iliana Nevills [facility] 4 10:22:28 289284 propoxyph clara medicatio n Not available Not available Not available 05/31/2024 8785 RxNorm Iliana Pham [facility] 10:23:03 864752 Substance with sulfonami de structure and antibacte rial mechanism of action (substanc e) medicatio n Not available Not available Not available 05/31/2024 51070 8003 SNOMED Iliana Nath [facility] 10:23:10 Medications Name Sig Start [...] Updated DateTime 05/31/2024 157.48 cm 32.4 kg/m2 76120.85 g Iliana Pham [facility] 05/31/2024 10:25:02 Social History Question Answer Notes LastModified by Organizat ion Details LastModified Time Tobacco Smoking Status Former Smoker Iliana Pham person [facility] 05/31/2024 10:26:14 What Is Your [...] Response Sexually Transmitted Infection N Diabetes Y Other N Bleeding Disorder N High Blood Pressure Y Kidney Stones N High Cholesterol Y GERD/Acid Reflux N Heart Disease N Cancer N Lung Disease N Depression N Gynecological HistoryNo gynecological history recorded. Obstetrics History GPAL:G 0 P 0 0 0 0 Immunizations Vaccine Type Date Status Note Provider Nam e and Address Organization Details Recorded Time zoster recombinant 0 [facility] 10:17:44 zoster recombinant 9 completed [facility]/31/2024 10:17:45 SARS-COV-2 (COVID-19) vaccine, UNSPECIFIED 1 completed Iliana Nevills [facility] 05/31/2024 10:17:45 SARS-COV-2 (COVID-19) vaccine, UNSPECIFIED 1 completed [facility]24 10:17:45 SARS-COV-2 (COVID-19) vaccine, UNSPECIFIED 2 completed Iliana Nevills null, [facility] 05/31/2024 10:17:45 SARS-COV-2 (COVID-19) vaccine, UNSPECIFIED 2 completed Iliana Nevills null, [facility] 05/31/2024 10:17:45 SARS-COV-2 (COVID-19) vaccine, UNSPECIFIED 1 completed Iliana Nevills null, [facility] 05/31/2024 10:17:45 Respiratory syncytial virus (RSV), unspecified 3 completed Iliana Nevills null, [facility] 05/31/2024 10:17:45 COVID-19, mRNA, LNP-S, PF, shadi-sucrose, 30 mcg/0.3 mL 2 completed Iliana Nevills null, [facility] 05/31/2024 10:17:45 COVID-19, mRNA, LNP-S, PF, shadi-sucrose, 30 mcg/0.3 mL 4 completed [facility]24 10:17:45 COVID-19, mRNA, LNP-S, PF, shadi-sucrose, 30 mcg/0.3 mL 3 completed [facility] 05/31/2024 10:17:45 pneumococcal polysaccharide PPV23 6 completed Iliana Nevills null, [facility] 05/31/2024 10:17:45 Tdap 8 completed [facility]/2024 10:17:45 Tdap 8 completed [facility]/31/2024 10:17:45 Pneumococcal conjugate PCV 13 5 completed [facility] 05/31/2024 10:17:45 pneumococcal, unspecified formulation 8 completed Iliana Nevills null, [facility] 05/31/2024 10:17:45 zoster live 9 completed Iliana Nevills null, [facility] 05/31/2024 10:17:45 Influenza, high-dose, trivalent, PF 4 completed [facility]24 10:17:45 Past Encounters Encounter ID Performer Location Encounter Start Date Encounter Closed Date Diagnosis/Indication Diagnosis SNOMED-CT Code Diagnosis ICD10 Code Diagnosis Note [id number] MD Alphonse [facility] [address] [facility] [place] [address] 05/17/2024 12:23:46 05/17/2024 12:34:14 Overactive urinary bladder 207792601 N32.81 [id number] MD Alphonse MCWILLIAMS_[place] [address] [facility] [address] [place] [address] 05/31/2024 10:07:51 06/01/2024 11:16:44 Urinary tract infectious disease 50158840 N39.0 Overactive urinary bladder 290473733 N32.81 Health Concerns Section Related Observation LastModified by Organization Detai ls LastModified Time None Recorded Concern Status LastModified by Organization Details LastModified Time None Recorded Advance Directives Directive None Recorded Payers Encounter Date Sequence Insurance Name Policy Number Policy West Covered Member ID West Member ID Guarantor Name 05/17/2024 1 [place] COST [id number] Emma A Boutell [id number] Emma A Boutell 05/31/2024 1 [place] COST [id number] Emma A Boutell [id number] Emma A Boutell Notes Date Note Type Note Provider Name and Address Organization Details Recorded Time 05/31/2024 text/html 83-year-old female with overactive bladder presents for bladder Botox NICOLAS RAMAN MD [address] [facility], [place], [address], [facility] 05/31/2024 16:31:17 OBGyn Episode No OBEpisode recorded.
[2024-12-05 14:33] VITALS: BP 154/85; PULSE 82; RESP 16; TEMP 36.8; O2SAT 96; BMI 32.7
--- NOTE | 2024-12-05 16:37 | ED.GENADULT ---
HPI - General Adult General Chief complaint: Skin/Abscess/Foreign Body Stated complaint: Hives Time Seen by Provider: 12/05/24 14:31 History of Present Illness HPI narrative: Pt was here yesterday for allergic rash which she has had for 2 weeks . Has tried a variety of OTC allergy meds, creams, and medrol dosepack , prednisone. Was advised to try taking Mora, and took this yesterday and once today. Pt still has the allergic rash, although her hand swelling is improved. VSS. Pt does not appear in any obvious distress in triage. 84-year-old woman presenting to emergency depart with concern of a rash this has been present in some degree for couple of weeks. Has been diagnosed with urticarial eruptions. Was seen in this emergency department yesterday and recommended for regular Mora instead of her Zyrtec as only change connected yesterday. In addition to had already been through a Medrol Dosepak or least partial Dosepak and was changed to prednisone. She has triamcinolone cream along as well in bag of medications. No difficulty swallowing or breathing but just can not stop itching. Suspicion is that this was antibiotic related with concern of an infection that had begun around venous stripping. No fever. Related Data Home Medications ?Medication ?Instructions ?Recorded ?Confirmed ascorbic acid (vitamin C) 500 mg 500 mg PO DAILY 04/06/24 11/29/24 tablet cholecalciferol (vitamin D3) 25 50 mcg PO DAILY 04/06/24 11/29/24 mcg (1,000 unit) capsule docusate sodium 100 mg capsule 200 mg PO BID 04/06/24 11/29/24 (Dulcolax Stool Softener (docusate)) calcium carbonate (Oyster Shell 500 mg PO DAILY 07/08/24 11/29/24 Calcium) turmeric 400 mg capsule 400 mg PO DAILY 07/08/24 11/29/24 diphenhydramine HCl 25 mg capsule 50 mg PO QHS PRN 12/03/24 12/04/24 (Benadryl) Previous Rx's ?Medication ?Instructions ?Recorded amlodipine 2.5 mg tablet 2.5 mg PO DAILY@1800 #90 tabs 09/07/24 metformin 500 mg tablet,extended 500 mg PO BID #180 tabs 09/07/24 release 24 hr rosuvastatin 5 mg tablet 5 mg PO DAILY@1800 #90 tabs 09/07/24 amoxicillin 875 mg-potassium 1 tab PO BID #10 tabs 12/02/24 clavulanate 125 mg tablet triamcinolone acetonide 0.1 % 1 applic topical BID PRN rash #80 12/02/24 topical cream grams Allergies Allergy/AdvReac Type Severity Reaction Status Date / Time amoxicillin (From Augmentin) Allergy Intermediate Diarrhea Verified 12/04/24 13:15 cephalexin Allergy Intermediate Rash Verified 12/04/24 13:15 clavulanic acid (From Allergy Intermediate Diarrhea Verified 12/04/24 13:15 Augmentin) codeine Allergy Verified 12/04/24 13:15 hydrocodone Allergy Verified 12/04/24 13:15 propoxyphene Allergy NAUSEA Verified 12/04/24 13:15 VOMITING canagliflozin (From Invokana) AdvReac HIVES AND Verified 12/04/24 13:15 ITCHING levofloxacin (From Levaquin) AdvReac MYALGIAS Verified 12/04/24 13:15 Opioids - Morphine Analogues AdvReac Verified 12/04/24 13:15 oxycodone AdvReac Rash Verified 12/04/24 13:15 Sulfa (Sulfonamide AdvReac swelling Verified 12/04/24 13:15 Antibiotics) dermabond prineo AdvReac rash Uncoded 11/29/24 11:58 Review of Systems Status of ROS: Reports: 6 or more systems reviewed and unremarkable except as noted in History and below PFSH PFS Medical History UTI (urinary tract infection) ?N39.0 - Urinary tract infection, site not specified (ICD-10) Hives ?L50.9 - Urticaria, unspecified (ICD-10) Hx of echocardiogram ?Z92.89 - Personal history of other medical treatment (ICD-10) History of angina ?Z86.79 - Personal history of other diseases of the circulatory system (ICD-10) Hx of small bowel obstruction ?Z87.19 - Personal history of other diseases of the digestive system (ICD-10) Surgical History H/O total hip arthroplasty ?Z96.649 - Presence of unspecified artificial hip joint (ICD-10) Status post right foot surgery ?Z98.890 - Other specified postprocedural states (ICD-10) History of arthroplasty of right knee ?Z96.651 - Presence of right artificial knee joint (ICD-10) H/O oophorectomy History of carpal tunnel surgery ?Z98.890 - Other specified postprocedural states (ICD-10) H/O vaginal surgery ?Z98.890 - Other specified postprocedural states (ICD-10) H/O discectomy ?Z98.890 - Other specified postprocedural states (ICD-10) Hx of cataract surgery ?Z98.49 - Cataract extraction status, unspecified eye (ICD-10) History of cholecystectomy ?Z90.49 - Acquired absence of other specified parts of digestive tract (ICD-10) History of colon surgery ?Z98.890 - Other specified postprocedural states (ICD-10) H/O cardiac catheterization ?Z98.890 - Other specified postprocedural states (ICD-10) History of hysterectomy ?Z90.710 - Acquired absence of both cervix and uterus (ICD-10) Hx of shoulder surgery ?Z98.890 - Other specified postprocedural states (ICD-10) Family History Father Coronary artery disease CHF (congestive heart failure) Diabetes High blood pressure Heart disease Mother High blood pressure High cholesterol Vulvar cancer Thyroid cancer Osteoporosis Maternal Grandfather Colon cancer Brother Sleep apnea Uncle Stomach cancer Social History Narrative: Non-smoker, no alcohol use, lives with Felipe who would be MDM if needed. Full Code but does not desire long-term intubation.? 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 What is your current living situation?: I presently have a place to live Problems where you live: no known problems Problems where you live details: none In the past 12 months, utilities in danger of being shut off: no In past 12 months, lack of transportation kept you from medical appts, meetings, work, or getting things needed for daily living: no In the past 12 mos, have been you worried that your food would run out before you had money to buy more?: never true In the past 12 mos, the food you bought just didn't last and you didn't have money to buy more?: never true Highest level of school completed/degree received: Associate degree: occupational, technical, vocational program Smoking Status: Never smoker Do you use any of these nicotine containing products: None Second hand tobacco smoke exposure: No How often do you have a drink containing alcohol: never How often do you have six or more drinks on one occasion: Never AUDIT-C Alcohol total score: 0 Non-prescribed substance use: denies use Caffeine: Yes (coffee) How often does anyone, including family, friends and others, physically hurt you: never How often does anyone, including family, friends and others, insult or talk down to you: never How often does anyone, including family, friends and others, threaten you with harm: never How often does anyone, including family, friends and others, scream or curse at you: never Gender Identity: female service: No Exam Narrative: Exam Narrative: Pleasant. Clearly uncomfortable. Distressed. Is regularly scratching various areas of her skin particularly torso. Early patchy erythema with some raised margins more on the left mid back area. No stridor. Lungs appear to be clear. Swelling of lips are mucous membranes noted. Const: Vital Signs, click to edit/add: Vital Signs - 24 hr 12/05/24 14:33 Temperature 98.2 F Pulse Rate [Pulse Oximeter] 82 Respiratory Rate 16 Blood Pressure [Ri ght Upper Arm] 154/85 H Pulse Oximetry 96 Oxygen Delivery Me thod Room Air Documenting provider has reviewed patient's vital signs: yes Course Vital Signs Vital signs: Initial Vital Signs Temperature 98.2 F 12/05/24 14:33 Temperature Source Temporal Artery Scan 12/05/24 14:33 Pulse Rate 82 12/05/24 14:33 Respiratory Rate 16 12/05/24 14:33 Blood Pressure 154/85 H 12/05/24 14:33 Blood Pressure Mean 108 H 12/05/24 14:33 Blood Pressure Position Sitting 12/05/24 14:33 Pulse Oximetry 96 12/05/24 14:33 Oxygen Delivery Method Room Air 12/05/24 14:33 Vital Signs Temperature 98.2 F 12/05/24 14:33 Pulse Rate 82 12/05/24 14:33 Respiratory Rate 16 12/05/24 14:33 Blood Pressure 154/85 H 12/05/24 14:33 Pulse Oximetry 96 12/05/24 14:33 Oxygen Delivery Method Room Air 12/05/24 14:33 Temperature 98.2 F 12/05/24 14:33 Pulse Rate 82 12/05/24 14:33 Respiratory Rate 16 12/05/24 14:33 Blood Pressure 154/85 H 12/05/24 14:33 Pulse Oximetry 96 12/05/24 14:33 Oxygen Delivery Method Room Air 12/05/24 14:33 Medications Administered Medications: Discontinued Medications Generic Name Dose Route Start Last Admin Trade Name Bry PRN Reason Stop Dose Admin Lorazepam 0.5 mg 12/05/24 16:49 12/05/24 17:01 Lorazepam 0.5 Mg Tablet PO 12/05/24 16:50 0.5 mg ONCE ONE Administration Medical Decision Making MDM Narrative Medical decision making narrative: Does appear to be urticarial in nature this rash. Is receiving generally adequate treatment. Topical cream probably going to be difficult to use as has broad areas of involvement on her skin. She is simply not able to stop itching at this point. I think would need to work on calming this desire or need 1st. Decided to give a dose of lorazepam here in the emergency department and reassessed. Upon reassessment, is more calm actually seated and able to give attention to her phone at this point. Appears relieved. Think would continue treatment otherwise. See patient discharge plan for further discussion Prescribing lorazepam and hydroxyzine from [facility] for agitation/itch. My hope is that if we can calm that you down you will itch less and can more quickly get over this. Both of these medications can be sedating. The lorazepam is likely more so. These medications you can use as needed as prescribed. If you must itch, consider doing that with an ice cube. In the meantime would continue to take the prednisone. Go ahead and take another tablet today for total of 40 mg today. I am also prescribing oral prednisone from [facility]. Take 20 mg twice daily for 2 more days and then go to 10 mg (split the tablet) twice daily for 3 more days. Follow these directions and not the instructions printed on the medication label. Your area of involvement on your skin I think is too much to cover with the steroid cream or other creams frankly. If you can get the okay from surgery/care provider, warm to tepid baking soda baths with copious baking soda added might be helpful. I do not feel strongly about you continuing with the Mora but it is relatively safe medication and you could take it twice a day without a problem. Medical Records Medical records reviewed: Yes I reviewed the patient's medical records Discharge Plan Discharge Clinical Impression: Urticaria, Itch, Agitation Patient Disposition: Home w/ Parent or Adult Condition: Improved Additional Instructions: Prescribing lorazepam and hydroxyzine from [facility] for agitation/itch. My hope is that if we can calm that you down you will itch less and can more quickly get over this. Both of these medications can be sedating. The lorazepam is likely more so. These medications you can use as needed as prescribed. If you must itch, consider doing that with an ice cube. In the meantime would continue to take the prednisone. Go ahead and take another tablet today for total of 40 mg today. I am also prescribing oral prednisone from [facility]. Take 20 mg twice daily for 2 more days and then go to 10 mg (split the tablet) twice daily for 3 more days. Follow these directions and not the instructions printed on the medication label. Your area of involvement on your skin I think is too much to cover with the steroid cream or other creams frankly. If you can get the okay from surgery/care provider, warm to tepid baking soda baths with copious baking soda added might be helpful. I do not feel strongly about you continuing with the Mora but it is relatively safe medication and you could take it twice a day without a problem. Prescriptions: No Action docusate sodium [Dulcolax Stool Softener (dss)] 100 mg capsule 200 mg PO BID cholecalciferol (vitamin D3) 25 mcg (1,000 unit) capsule 50 mcg PO DAILY ascorbic acid (vitamin C) 500 mg tablet 500 mg PO DAILY metformin 500 mg tablet extended release 24 hr 500 mg PO BID Qty: 180 3RF rosuvastatin 5 mg tablet 5 mg PO DAILY@1800 Qty: 90 3RF amlodipine 2.5 mg tablet 2.5 mg PO DAILY@1800 Qty: 90 3RF diphenhydramine HCl [Benadryl] 25 mg capsule 50 mg PO QHS PRN calcium carbonate [Oyster Shell Calcium] 500 mg calcium (1,250 mg) tablet 500 mg PO DAILY turmeric 400 mg capsule 400 mg PO DAILY amoxicillin-pot clavulanate 875-125 mg tablet 1 tab PO BID Qty: 10 0RF triamcinolone acetonide 0.1 % cream 1 applic topical BID PRN (Reason: rash) Qty: 80 0RF Follow Up/Referrals: Maria Antonia Garner MD [Primary Care Provider] - Stand Alone Forms: Assurely Info Instructions
[2024-12-05] MEDS: LORazepam 0.5 MG TABLET PO (17:01)
--- OUTSIDE RECORDS SUMMARY | 2024-12-05 17:01 | XMS_ITS | Clinical Summary ---
Author Organization [employer] [facility] Address [address] [place] [address] Care Team Providers Care Livestock Laborer Name Role Phone Shahzad Temple Primary Care Provider [phone] Allergies Active Allergy Reactions Criticality Noted Date [...] 12/05/2024 1:00 PM CDT Ancillary Procedure [facility] & [address] [address] Arrived 11/29/2024 Telephone [facility] [address] [facility] [address] [place] [address] Que Ansari MD NEEDS TO CHANGE SURGERY DATE 11/19/2024 Transcribe Orders [facility] [address] [facility] [address] [place] [address] Que Ansari MD 11/08/2024 8:00 AM CDT Office Visit [facility] [address] [address] Que Ansari MD Recheck (left hand numbness) 11/08/2024 Travel 10/11/2024 Telephone [facility] [address] [facility] [address] [place] [address] Que Ansari MD Follow Up (Shot) 10/05/2024 1:30 PM MEDICAL I D SALES Office Visit [facility] [address] [place] [address] Vinicio Monge MD Follow Up (Urinary retention) 10/05/2024 Travel 10/04/2024 11:40 AM MEDICAL I D SALES Procedure Only [facility] [address] [place] [address] Kenroy Del Rosario MD Procedure (Carpal tunnel syndrome on left) 10/03/2024 Travel 09/28/2024 Telephone [facility] 310 [facility] [address] [place] [address] Que Ansari MD Imaging (EMG RESULTS ) 09/27/2024 Orders Only [facility] Scanner 1 scan: (1-Ord) [facility] 09/06/2024 1:00 PM MEDICAL I D SALES Office Visit [facility] [address] [address] Que Ansari MD Hand Pain/problem (left hand [...] on file Legal Sex Female 8:06 AM MEDICAL I D SALES Gender Identity Not on file Sexual Orientation Not on file Obstetrics History Last Filed Vital Signs Vital Sign Reading Time Taken Comments Blood Pressure 148/84 07/18/2024 8:21 AM MEDICAL I D SALES Pulse 60 10/05/2024 1:37 PM MEDICAL I D SALES Temperature 37.3 C (99.1 F) 12/07/2010 12:01 PM CDT Respiratory Rate 16 06/18/2024 2:01 PM MEDICAL I D SALES Oxygen Saturation 100% 10/05/2024 1:37 PM MEDICAL I D SALES Inhaled Oxygen Concentration - - Weight 82.1 kg (181 lb) 10/05/2024 1:37 PM MEDICAL I D SALES Height - - Body Mass Index - - Plan of Treatment Upcoming Encounters Date Type Department Care Team (Late st Contact Info) Description 01/17/2025 1:30 PM CDT Office Visit [facility] [id number] [place] [address] [address] [place] [address] Naheed Burr PA [address] [facility] [address] [place] [address] Scheduled Procedures Name Priority Associated [...] (valve) insufficiency SCAN-DIAGNOSTIC REPORT 10/05/2024 12:00 AM MEDICAL I D SALES SCAN-ELECTROMYOGRA M EMG 09/27/2024 12:00 AM MEDICAL I D SALES from Last 3 Months Results * ECHO [...] Tech: Shari Referring MD: JOHN MATHUR Site: [facility] Reading Location: Mobile-OP Patient Location: [...] . This study was interpreted by an [facility] accredited facility. Final Procedure Note Zeb Cooley MD - 12/05/2024 ECHOCARDIOGRAM JOSE LEBLANC : 1940 84 years Study Date: 12/05/2024 1:07:30 PM Gender: F BP: 138/65 mmHg Height: 157.00 cm BSA: 1.86 m Weight: 86.00 kg Tech: MIRACLE Referring MD: JOHN MATHUR Site: [facility] Reading Location: Mobile-OP Patient Location: [...] . This study was interpreted by an [facility] accredited facility. Final us John Mathur MD ECHO ORD Final Res ult * SCAN-DIAGNOSTIC REPORT (10/05/2024 12:00 AM MEDICAL I D SALES) us Scanner OTHER Final Result * SCAN-ELECTROMYOGRAM EMG (09/27/2024 12:00 AM MEDICAL I D SALES) us Scanner OTHER Final Result from Last 3 Months Insurance [employer]UE [employer] MEDICARE ADVANTAGE MR Care Teams Livestock Laborer Relationship Specialty [place] [address] [place] [address] PCP - General Family Practice 12/07/10
--- OUTSIDE RECORDS SUMMARY | 2024-12-05 17:01 | XMS_ITS | Clinical Summary ---
Author Organization [facility] Address [address] [place] [address] Care Team Providers Care Transportation Escort Name Role Phone Maria Antonia Garner MD Primary Care Provider [phone] Sandeep Tom PA-C Unavailable [phone] Allergies Active Allergy Reactions Criticality Noted Date [...] Department Care Team Description 09/20/2024 2:00 PM TELEMARKETING REPRESENTATIVE Office Visit [address] [phone] Sandeep Tom PA-C ELVIRA (obstructive sleep apnea) [...] Comments Blood Pressure 138/86 09/20/2024 1:00 PM TELEMARKETING REPRESENTATIVE Pulse 75 09/20/2024 1:00 PM TELEMARKETING REPRESENTATIVE Temperature - - Respiratory Rate - - Oxygen Saturation 100% 09/20/2024 1:00 PM TELEMARKETING REPRESENTATIVE Inhaled Oxygen Concentration - - Weight 81.6 kg (180 lb) 09/20/2024 1:00 PM TELEMARKETING REPRESENTATIVE Height 157.5 cm (5' 2) 09/20/2024 1:00 PM TELEMARKETING REPRESENTATIVE Body Mass Index 32.92 09/20/2024 1:00 PM TELEMARKETING REPRESENTATIVE Plan of Treatment Upcoming Encounters Date Type Department Care Team (Late st Contact Info) Description 08/15/2025 1:30 PM TELEMARKETING REPRESENTATIVE Office Visit [address] [phone] Sandeep Tom PA-C [address] [phone] Health Maintenance Due Date Last Done Comments [...] patient's age to complete this topic Insurance [facility] MEDICARE ADVANTAGE Care Teams Transportation Escort Relationship Specialty Start Date End Date Garner, Maria Antonia E, MD [address] [address] PCP - General Family Medicine 09/20/24 Sandeep Tom PA-C [address] [address] Assigned Neuroscience Provider 09/30/24
--- OUTSIDE RECORDS SUMMARY | 2024-12-05 17:01 | XMS_ITS | Encounter Summary ---
Author Organization [facility] Address [address] [place] [address]. [place] [address] Care Team Providers Care Oral Surgeon Name Role Phone Maria Antonia Garner MD Primary Care Provider [phone] Sandeep Tom PA-C Unavailable [phone] Reason for Visit * Reason Comments Sleep Problem CPAP Annual Encounter Details Date Type Department Care Team (Late st Contact Info) Description 09/20/2024 2:00 PM BUCKET CHUCKER Office Visit [facility] [address] [phone] Sandeep Tom PA-C [address] [address] ELVIRA (obstructive sleep apnea) (Primary [...] Comments Blood Pressure 138/86 09/20/2024 1:00 PM BUCKET CHUCKER Pulse 75 09/20/2024 1:00 PM BUCKET CHUCKER Temperature - - Respiratory Rate - - Oxygen Saturation 100% 09/20/2024 1:00 PM BUCKET CHUCKER Inhaled Oxygen Concentration - - Weight 81.6 kg (180 lb) 09/20/2024 1:00 PM BUCKET CHUCKER Height 157.5 cm (5' 2) 09/20/2024 1:00 PM BUCKET CHUCKER Body Mass Index 32.92 09/20/2024 1:00 PM BUCKET CHUCKER documented in this encounter Progress Notes * [...] moderate ELVIRA initially diagnosed in 2011 in [place]. She did not tolerate CPAP on 2 [...] is 0.1/hr. Past Sleep Evaluations: 07/15/2012 in [place]. AHI 21.3/hr. REM AHI 63.2/hr. O2 quentin [...] Social History: She met her at the [employer] they both worked at. 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 After that, she went back to school and worked in [employer]. SCALES: EPWORTH SLEEPINESS SCALE 09/20/2024 2:00 PM Comins Sleepiness Scale ( Evonne Weiss [phone]
ESS - [place] - Final version - Jun 14 - [facility] [place].) Comins Score (Sleep) 2 INSOMNIA SEVERITY INDEX (TOÑO) [...] Clinical insomnia (severe) Used via courtesy of www.[employer] System[employer]h.[place].gov with permission from Luis Eduardo Clark PhD., [employer]?? [employer] STOP BANG 09/20/2024 1:00 PM STOP BANG Questionnaire (?? 2008, the [place] [employer]. Mary Giovanny & [...] and colleagues, with an educational mazin from [employer] No permission required to reproduce, translate, [...] Food Insecurity: Low Risk (06/16/2022) Received from [facility] Food Insecurity Have there been times that your food ran out, and you didn't have money to get more?: No Are there times that you worry that this might happen?: No Transportation Needs: Low Risk (06/16/2022) Received from [facility] Transportation Needs Do you have trouble getting transportation to medical appointments?: No How do you normally get to and from your appointments?: Not on file Physical Activity: Not on file Stress: Not on file Social Connections: Not on file Interpersonal Safety: Not on file Housing Stability: Low Risk (06/16/2022) Received from [facility] Housing Stability Are you concerned about [...] GLC, BUN, CR, JOHNATHAN in the last 03883 hours. No results for input(s): WBC, RBC, HGB, HCT, MCV, MCH, MCHC, RDW, PLT in the dihy86121 hours. No results for input(s): PROTTOTAL, ALBUMIN, BILITOTAL, ALKPHOS, AST, ALT, BILIDIRECTin the last 33923 hours. No results found for: TSH No results found for: UAMP, UBARB, BENZODIAZEUR, UCANN, UCOC, OPIT, UPCP No results found for: IRONSAT, TG04718, ABDOUL No results found for: PH, PHARTERIAL, PO2, [id number], SAT, PCO2, HCO3, BASEEXCESS, BLANCA, BEB @LABRCNTIPR(phv:4,pco2v:4,po2v:4,hco3v:4,dash:4,o2per:4)@ Echocardiology: No results found for this or any previous visit (from the past 4320 hours). Chest x-ray: No results found for this or any previous visit from the past [address]: No results found for this or any previous visit from the past 365 days. PFT: Most Recent [facility] Pulmonary Function Testing No results found for: Sandeep Tom PA-C, LINDSEY 09/19/2024 ET CHUCKER documented in this encounter Nursing Notes * [...] inches / 38 centimeters. DME: [facility] DME ET CHUCKER documented in this encounter Plan of Treatment Upcoming Encounters Date Type Department Care Team (Late st Contact Info) Description 08/15/2025 1:30 PM BUCKET CHUCKER Office Visit [facility] [phone] [place] [phone] Sandeep Tom PA-C [address] [place], [place] [phone] documented as of this encounter Visit Diagnoses Diagnosis ELVIRA (obstructive sleep apnea)- Primary Obstructive sleep apnea (adult) (pediatric) documented in this encounter Care Teams Oral Surgeon Relationship Specialty Start Date End Date Maria Antonia Garner MD [address] [address] PCP - General Family Medicine 09/20/24 Sandeep Tom PA-C [address] [place] [address] Assigned Neuroscience Provider 09/30/24 documented as of this encounter
--- OUTSIDE RECORDS SUMMARY | 2024-12-05 17:02 | XMS_ITS | Clinical Summary ---
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 Immunizations No information available. Advance Directives No information available.
--- OUTSIDE RECORDS SUMMARY | 2024-12-05 17:02 | XMS_ITS | Data Portability ---
Author Organization [place] [facility] [address] [place] [address] Care Team Providers Care Senior Engineer Name Role Phone KEVAN JOHN Primary Care Provider Assessment Encounter Date Assessment Date Assessment LastModified by Organization Details LastModified Time 07/13/2024 07/13/2024 This visit was performed via [employer] device with a total face to face time of 5 minutes. This patient is being seen today for a [facility] appointment after hospitalization. Reason for admission: Infection of toe I have reviewed the external medical records: Hospital discharge summary from [facility], on 07/08/24 to 07/10/24. Specifically, the data/test result/record I reviewed was: discharge summary. The following comorbid health conditions pertinent to this [facility] visit were discussed, diagnoses were added, and current status documented: Vital signs have been reviewed: VSS The patient has a follow up appointment with surgeon on 07/18/2024 The patient has a follow up appointment with PCP on 09/07/2023. SSMILE High Risk area for hospital readmission *SYMPTOMS Does the patient have ongoing or worsening symptoms? No, low risk for readmission. *SKILLED NEEDS Does the patient have unaddressed skilled needs? No, low risk for readmission. *MEDICATIONS Is the patient/caregiver able to describe current medication management strategy? Yes, low risk for readmission. Reconciliation and Management: Hard copy discharge medication list provided by patient was reviewed and reconciled during this encounter with patient's current medications. A face to face medication reconciliation was completed during today's visit. No medications were prescribed or ordered upon hospital discharge The patient understands how to take their new medications. The patient verbalized understanding of the dosage and timing of their medications and understands the need to take their medications as prescribed. I had the opportunity to answer any questions regarding their medications. *INFORMATION Does the patient/caregiver /MPOA have understanding of disease/discharge information/treat ment plan/red flag symptoms? Yes, low risk for readmission. *LINKED UP Does the patient understand the appropriate providers to follow up with: Yes, low risk for readmission. Does the patient have access to healthcare, food, social support? Yes, low risk for readmission. Resources available through [facility]. *ENGAGEMENT Is the patient/caregiver /MPOA engaged in the care plan? Yes, low risk for readmission. After reviewing records, medications, understanding for the plan of care, physical exam, and SSMILE Risk score, and it is determined the patient is safe to remain at home and is left in stable condition. Additional patient instructions: None - she is doing well. Follow-up recommendations: Advised to monitor their symptoms closely including for signs of infection , to take their regular daily medications as prescribed, practice fall precautions, and keep their appointment(s) as scheduled. The patient is advised to seek immediate evaluation with their [facility]CP, [facility], or in the ER for new or worsening symptoms. The patient verbalizes understanding and agrees with the plan. Notes from the visit were sent to the patient's PCP. [email or web address] Not available 07/13/2024 15:32:25 Plan of Treatment Reminders Order Date Submit Date Provider Last Modified By Organization Details Last Modified Time Details Appointments None record ed. Lab None record ed. Referral None record ed. Procedures None record ed. Surgeries None record ed. Imaging None record ed. Medication Orders None record ed. Patient TargetsNo targets recorded. Patient Instructions Encounter Date Encounter Id Patient Instructions Last Modified By Organization Details Last Modified Time 07/13/2024 [id number] - YOU WERE SEEN TODAY FOR HOSPITAL DISCHARGE FOLLOW UP - CONTINUE YOUR MEDICATIONS PRESCRIBED - BE SURE TO FOLLOW UP WITH PRIMARY CARE AND SPECIALISTS SCHEDULED - MONITOR SYMPTOMS CLOSELY It was great to see you today! Thank you for letting [facility] follow up with you after your hospitalization today. If you are noticing a change in your symptoms between the hours of 8am and 9pm, and cannot follow up with your PCP please [facility] Please present to the nearest EMERGENCY ROOM if you are experiencing any of the following: - worsening pain - fever above 101.0F despite using Tylenol (acetaminophen) - shortness of breath - chest pain or pressure - any symptom or concern that requires immediate evaluation Not available 07/13/2024 14:45:25 Reason for Referral None Reported. Procedures Surgical History Date Name Laterality Status Provider Name and Address Organization Details Recorded Time 07/13/20 24 Medication Review completed Vinita Olvera, MAHSA [address] ,[address], [place], [address], [place] [facility] 07/13/2024 15:17:30 total shoulder replacement completed Caitlyn Cameron [place] [facility] 07/13/2024 15:00:04 total replacement of hip completed [facility]aitlyn Cameron [place] [facility] 07/13/2024 15:00:20 total knee replacement completed Caitlyn Cameron [place] [facility] 07/13/2024 15:00:45 Carpal tunnel surgery completed [facility]aitlyn Cameron [place] [facility] 07/13/2024 15:01:00 repair of perforated colon completed Caitlyn Cameron [place] [facility] 07/13/2024 15:01:43 Imaging Results None recorded. Procedure Notes None recorded. Medical Equipment None Reported. Allergies Allergen ID Allergen Name Allergen Category Reaction Reaction Severity Criticality Documentation Date Start Date Code Code System Note Provider Name and Address Organization Details Recorded Time 070513 Substance with sulfonami de structure and antibacte rial mechanism of action (substanc e) medicatio n swelling moderate unabletoasse ss 07/13/2024 [id number] SNOMED Caitlyn Cameron [facility], [place] [facility] 14:42:31 Medications Name Sig Start Date Stop Date Status Note LastModified by Organization Details LastModified Time celecoxib 200 mg capsule 07/13 completed Not Available Not Available Not Available metformin 500 mg tablet TAKE 1 TABLET BY MOUTH TWICE DAILY 07/13 completed Not Available Not Available Not Available clindamycin HCl 300 mg capsule TAKE 1 CAPSULE BY MOUTH EVERY MORNING AND 1 CAPSULE BEFORE BEDTIME FOR 10 DAYS. 07/13 completed Not Available Not Available Not Available fluconazole 150 mg tablet TAKE 1 TABLET BY MOUTH DAILY NEEDED FOR YEAST INFECTION 07/13 completed Not Available Not Available Not Available hydrocodone 5 mg-acetamin ophen 325 mg tablet 07/13 completed Not Available Not Available Not Available amlodipine 2.5 mg tablet TAKE 1 TABLET BY MOUTH EVERY DAY active Not Available Not Available No t Available tramadol 50 mg tablet 07/13 completed Not Available Not Available Not Available cephalexin 500 mg capsule TAKE 1 CAPSULE BY MOUTH THREE TIMES DAILY active Not Available Not Available No t Available gabapentin 300 mg capsule 07/13 completed Not Available Not Available Not Available metformin ER 500 mg tablet,exte nded release 24 hr TAKE 1 TABLET BY MOUTH TWICE DAILY WITH MEALS active Not Available Not Available No t Available amoxicillin 875 mg-potassiu m clavulanate 125 mg tablet TAKE 1 TABLET BY MOUTH EVERY 12 HOURS 07/13 completed Not Available Not Available Not Available rosuvastati n 5 mg tablet TAKE 1 TABLET BY MOUTH EVERY DAY AT BEDTIME active Not Available Not Available No t Available nitrofurant oin monohydrate /macrocryst als 100 mg capsule TAKE 1 CAPSULE BY MOUTH TWICE DAILY DIRECTED FOR 3 DAYS. 07/13 completed Not Available Not Available Not Available Myrbetriq 50 mg tablet,exte nded release TAKE 1 TABLET BY MOUTH EVERY DAY 07/13 completed Not Available Not Available Not Available Vitals Date Recorded Oxygen saturation Oxygen saturation in Arterial blood by Pulse oximetry Body temperature Respiratory rate Heart rate Systolic blood pressure Diastolic blood pressure Provider Name and Address Organization Details Last Updated DateTime 95 % 95 % 97.4 [degF] 16 /min 79 /min 122 mm[Hg] 66 mm[Hg] Not Available [facility] 14:39:03 Social History Question Answer Notes LastModified by Organizat ion Details LastModified Time Tobacco Smoking Status Former Smoker Caitlyn person, [place] [facility] 07/13/2024 14:56:02 Do You Have An Advance Directive? Yes [email or web address] Information n ot available 07/13/2024 What Is Your Level Of Alcohol Consumption? None [email or web address] Information not available 07/13/2024 Is Blood Transfusion Acceptable In An Emergency? Yes [email or web address] Information not available 07/13/2024 What Is Your Code Status? Full Code Pt's Family Knows The Logistics . [email or web address] Information not available 07/13/2024 Do You Have A Directive To Physicians? Yes Information not available 07/13/2024 When Did You Quit Smoking? 16+yearssin celastcijunaid ette [email or web address] Information not available 07/13/2024 Within The Past 12 Months, Has It Happened That The Food You Bought Just Didn't Last And You Didn't Have Money To Get More. Never True [email or web address] Information not available 07/13/2024 Within The Past 12 Months, Have You Worried That Your Food Would Run Out Before You Got Money To Buy More. Never True [email or web address] Information n ot available 07/13/2024 Fall Risk: Do You Feel Unsteady When Standing Or Walking? No Information not available 07/13/2024 Excessive Alcohol Or Drug Use No [email or web address] Information not available 07/13/2024 Does This Patient Have A PCP? Yes [email or web address] Information not available 07/13/2024 Has The Patient Seen Their PCP In The Past 6 Months? Yes [email or web address] Information n ot available 07/13/2024 Is This Patient In Hospice? No Information not available 07/13/2024 ADL: Do You Need Help With Daily Activities Such As Bathing, Preparing Meals, Dressing, Or Cleaning? No [email or web address] Information not available 07/13/2024 Social Support: Do You Feel Safe? Yes Information not available 07/13/2024 In The Past 12 Months, Has Lack Of Transportation Kept You From Medical Appointments? No [email or web address] Information not available 07/13/2024 In The Past 12 Months, Has Lack Of Transportation Kept You From Non-medical Needs? No [email or web address] Information n ot available 07/13/2024 What Is Your Housing Situation Today? I Have Housing [email or web address] Information not available 07/13/2024 Do You Have A Medical Power Of Geographic Information Systems Manager? No [email or web address] Information not available 07/13/2024 Do You Have An Out Of Hospital DNR? No [email or web address] Information not available 07/13/2024 Do You Have A Patient Advocate? No [email or web address] Information no t available 07/13/2024 At What Age Did You Start Smoking Tobacco? 22 [email or web address] Information not available 07/13/2024 Do You Use Any Illicit Or Recreational Drugs? No [email or web address] Information not available 07/13/2024 How Many Years Have You Smoked Tobacco? 5 [email or web address] Information not available 07/13/2024 Do You Or Have You Ever Used Any Other Forms Of Tobacco Or Nicotine? No [email or web address] Information not available 07/13/2024 Sex: Unknown Functional Status None recorded. Mental Status None recorded. Family History Relationship Description Onset Age of this Age Resolved Age Notes LastModified by Organization Details LastModified Time Father Diabetes mellitus [email or web address] Not available 2023 14:50:50 Father Congestive heart failure Not available 2023 14:51:19 Mother Hypertensive disorder [email or web address] Not available 2023 14:51:55 Mother Malignant tumor of thyroid gland [email or web address] Not available 2023 14:52:09 Mother Hypercholest erolemia [email or web address] Not available 2023 14:52:31 Mother Malignant tumor of vagina [email or web address] Not available 2023 14:52:48 Brother Sleep apnea [email or web address] Not avail able 07/13/2024 14:53:14 Medical History Condition Response Diabetes Y Coronary Artery Disease N CHF N Parkinson's Disease N Cancer N Stroke N Dementia N Asthma N Hypothyroidism N Depression N COPD N High Cholesterol Y Rheumatoid Arthritis N Pulmonary Embolism N Hypertension Y A-fib N Osteoporosis N Kidney Disease N Gynecological HistoryNo gynecological history recorded. Obstetrics History GPAL:G 0 P 0 0 0 0 Past Encounters Encounter ID Performer Location Encounter Start Date Encounter Closed Date Diagnosis/Indication Diagnosis SNOMED-CT Code Diagnosis ICD10 Code Diagnosis Note [id number] Vinita MAHSA Olvera [facility] [address] [place] [address] 07/13/2024 14:30:34 07/14/2024 04:36:37 Infection of toe 204094325 L08.9 Status of condition: {{Acute: Active condition Active: Recovering with Treatment* Chronic: Decompensa abhi Chroni c: Stable Acu te on Chronic: Ongoing Exacerbati on Critica l: Warrants escalation to ED}}.The patient is following discharge course of treatment and instructio ns, symptoms {{improvin g but not resolved i mproving* did not change wor sening despite treatment} } since discharge. {{The patient is at risk of decompensa tion due to lack of home care resources. The patient is at risk of decompensa tion due to lack of scheduled PCP/specia list follow-up. The patient is at risk of decompensa tion due to SDoH related impact: (lives alone, fall risk, lack of transporta tion, financial insecurity , health literacy gap, etc.). The patient is at risk of decompensa tion due to memory impairment }}.On scene testing and results: None today Discussion : patient presentati on is reassuring . She is stable to remain in the home. Plan & management : continue with plan of care as discussed and printed at time of discharge. If symptoms worsen contact PCP or [facility] for follow-up Health Concerns Section Related Observation LastModified by Organization Detai ls LastModified Time None Recorded Concern Status LastModified by Organization Details LastModified Time None Recorded Advance Directives Directive Y: Payers Encounter Date Sequence Insurance Name Policy Number Policy West Covered Member ID West Member ID Guarantor Name 07/13/2024 1 [employer] [place] SECURE BLUE (MEDICARE REPLACEMENT HMO) [id number] Emma Yang [id number] Emma Yang Notes Date Note Type Note Provider Name and Address Organization Details Recorded Time 4 text/html This patient being seen for a [facility] appointment following hospitalization at:{{ [facility]#}}. Reason for admission: infection in toe Date admitted:{{DATE 08/2023}}.Date discharged:{{DATE }}. While in the hospital, the patient had her 4th toe nail on the right foot removed.Newly prescribed medications: cephalexin Since discharge, the patient has been resting, and soaking the site of infection. Vinita Olvera, MAHSA [address] ,[address], [place], [address], [place] [facility] 07/13/2024 15:36:29 OBGyn Episode No OBEpisode recorded.
== END 2024-12-05 17:57 | disposition home or self-care (01) ==
PROVIDERS: Emergency Provider Family Medicine; PCP Family Medicine
DX: L50.9 Urticaria, unspecified (principal); L29.9 Pruritus, unspecified; R45.1 Restlessness and agitation
CPT/HCPCS: 99283; A9270

== ENCOUNTER 2024-12-25 09:10 | Outpatient (CLI) | payer MEDICARE, SELFPAY ==
--- NOTE | 2024-12-25 09:45 | CRLHL7_ITS ---
For Patients: As a result of the Cures Act, medical imaging exams and procedure reports are released immediately into your electronic medical record. You may view this report before your referring provider. If you have questions, please contact your health care provider. DIGITAL DIAGNOSTIC LEFT MAMMOGRAM USING TOMOSYNTHESIS AND COMPUTER-AIDED DETECTION LEFT BREAST ULTRASOUND CLINICAL HISTORY: LEFT breast mass/asymmetry. COMPARISON: 12/05/2024, 12/02/2023, 11/30/2022. TECHNIQUE: Digital LEFT mammogram in two projections with computer-aided detection. Tomosynthesis was used in this interpretation. Real-time ultrasound imaging of LEFT breast with imaging documentation. Scanning was performed by both the technologist and the radiologist. BREAST COMPOSITION: There are scattered areas of fibroglandular density. FINDINGS: 3D spot compression CC/MLO LEFT breast mammogram images submitted. Decreased conspicuity of previously noted asymmetric density. No architectural distortion. No suspicious calcifications. Targeted LEFT breast ultrasound performed at 2 o`clock 5 cm from the nipple. No fibrocystic change or solid mass. IMPRESSION: No suspicious findings. Normal fibroglandular tissue. No evidence of malignancy. RECOMMENDATIONS: Routine screening mammography. A lay language report of this examination will be provided to the patient. BI-RADS Category 2: Benign Dictated by Rajat Mendoza MD @ 12/25/2024 10:50:51 AM jj/Dictated by: Rajat Mendoza MD @ 12/25/2024 10:50:00 AM (Electronically Signed)
--- NOTE | 2024-12-25 10:15 | CRLHL7_ITS ---
For Patients: As a result of the Cures Act, medical imaging exams and procedure reports are released immediately into your electronic medical record. You may view this report before your referring provider. If you have questions, please contact your health care provider. SEE DIGITAL DIAGNOSTIC LEFT MAMMOGRAM PERFORMED SAME DAY CRL:angel luis hein/Dictated by: Rajat Mendoza MD @ 12/25/2024 10:50:00 AM (Electronically Signed)
== END 2024-12-25 09:11 | disposition home or self-care (01) ==
LOC: MAMMO 09:11
PROVIDERS: PCP Family Medicine; Visit Provider Family Medicine
DX: N63.20 Unspecified lump in the left breast, unspecified quadrant (principal); R92.8 Other abnormal and inconclusive findings on diagnostic imaging of breast
CPT/HCPCS: 76642; 77065; G0279

== ENCOUNTER 2025-03-29 07:56 | Outpatient (CLI) | payer MEDICARE, SELFPAY | END 2025-03-29 07:57 | disposition home or self-care (01) | LOC: NFLDREF 04-02 14:33 | PROVIDERS: PCP Family Medicine; Referring Provider Family Medicine; Visit Provider Family Medicine | DX: E11.65 Type 2 diabetes mellitus with hyperglycemia (principal); E78.5 Hyperlipidemia, unspecified; I10 Essential (primary) hypertension | CPT/HCPCS: 80053; 80061; 82043; 82570 ==